=== PATIENT | female | born 1945 | race Caucasian/White ===

== ENCOUNTER → 2016-12-27 | Outpatient (CLI) | payer OTHER ==
[~2016-12-27] MED LIST: ACET-1256 PO; ALBU1AER9 INH; ASPI81TA28 PO; ATOR-24 PO; BECL0.072 INH; BIOTCAP2 PO; CALC1CHW43 PO; CHOL100010 PO; CHOL1CAP57 PO; COEN75CA PO; DULA0.5I SQ; FRS/40 PO; FURO-85 PO; GLIP-197 PO; INSDGI SC; KRIL1CAP3 PO; LANS30CA12 PO; LEVO125T72 PO; LISI10TA PO; MAGN400T6 PO; MECL1TAB42 PO; MELO15TA10 PO; MELO15TA3 PO; MISCCAP80 PO; POLY1DRO2 OPB; REPA1TAB42 PO; VALA500T60 PO; VERA240T20 PO
--- NOTE | 2016-12-28 14:02 | MAMMOGRAPHY REPORT ---
BILATERAL DIGITAL SCREENING MAMMOGRAM WITH CAD: 12/27/2016 CLINICAL HISTORY: Routine screening. Patient has no complaints. TECHNIQUE: Bilateral CC and MLO views were obtained. Current study was also evaluated with a Computer Aided Detection (CAD) system. COMPARISON: Comparison is made to exams dated: 12/27/2015 mammogram, 10/13/2014 mammogram, 10/09/2013 ma mmogram, 10/07/2012 mammogram, 10/05/2011 mammogram, and 09/29/2009 mammogram - [facility] nter. BREAST COMPOSITION: There are scattered areas of fibroglandular density in both breasts. FINDINGS: There is stable focal asymmetry in the 12:00 anterior right breast, and stable asymmetries in the left upper outer quadrant. A few benign rim calcifications. No suspicious mass, architectura l distortion or cluster of microcalcifications is seen. IMPRESSION: ACR BI-RADS CATEGORY 1: NEGATIVE There is no mammographic evidence of malignancy. A 1 year screening mammogram is recommended. The pa tient will receive written notification of the results. Approximately 10% of breast cancers are not detected with mammography. A negative mammographic report should not delay biopsy if a clinically suggestive mass is present. Ariadna Pelayo M.D. ay/:12/27/2016 15:27:36 International Relations Professor: Yas Jackson, [facility] letter sent: Normal 1/2 BI-RADS Code: ACR BI-RADS Category 1: Negative
== END | disposition home or self-care (01) ==
LOC: C.MAMM 13:22
PROVIDERS: ATTEND Internal Medicine
DX: Z12.31 Encounter for screening mammogram for malignant neoplasm of breast (principal)

== ENCOUNTER → 2017-02-19 | Outpatient (CLI) | payer OTHER | END | disposition home or self-care (01) | LOC: C.RDSM 13:37 | PROVIDERS: ATTEND Physical Medicine & Rehabilitation Sports Medicine | DX: M17.0 Bilateral primary osteoarthritis of knee (principal) ==

== ENCOUNTER 2017-03-07 04:57 | Inpatient (IN) | payer OTHER ==
[2017-02-19 12:14] VITALS: BMI 35.0
--- NOTE | 2017-02-19 13:14 | PAT Medication Instructions ---
Service Date Feb 19, 2017. Current Home Medication List Acetaminophen (Tylenol), 1,000 MG PO TID PRN for Pain Aspirin (Aspirin Ec), 81 MG PO BID Atorvastatin (Lipitor), 40 MG PO HS Biotin (Biotin 5000), 1 CAP PO QAM Calcium Carbonate (Antacid) (Tums E-X 750), 1 TAB PO PRN PRN for Indigestion Cholecalciferol (Vitamin D3), 1 TAB PO QAM Coenzyme Q10 (Ubidecarenone) (Co Q-10), 1 CAP PO QPM Dulaglutide (Trulicity), 1.5 UNITS SQ SAT Furosemide (Lasix), 20 MG PO QAM Insulin Glargine (Lantus), 24 UNITS SC QPM Krill Oil (Krill Oil), 1 CAP PO LUNCH Lansoprazole (Prevacid), 30 MG PO QAM Levothyroxine Sodium (Synthroid), 125 MCG PO QAM Lisinopril (Prinivil), 10 MG PO HS Magnesium Oxide (Mag-Ox), 400 MG PO QPM Meloxicam (Mobic), 7.5 MG PO QAM Polyethylene Glycol-Propylene (Systane Gel), 1 DROP OPB HS PRN for DRY EYES Probiotic Product (Probiotic), 1 CAP PO QPM Repaglinide (Prandin), 1 MG PO AC Valacyclovir (Valtrex), 500 MG PO QAM Verapamil Sust Rel (Calan Sr Ext Rel), 240 MG PO HS Medication Instructions For Your Scheduled Surgery -Continue as directed: Dulaglutide (Trulicity), 1.5 UNITS SQ SAT - Ask your surgeon for instructions for: Meloxicam (Mobic), 7.5 MG PO QAM Aspirin (Aspirin Ec), 81 MG PO BID (also check with Dr. Arthur for instructions) Hold the following medications 2 weeks prior to surgery (starting 02/21/17): Krill Oil (Krill Oil), 1 CAP PO LUNCH Coenzyme Q10 (Ubidecarenone) (Co Q-10), 1 CAP PO QPM - Hold the following medications 24 hours prior to surgery: Lisinopril (Prinivil), 10 MG PO HS - Hold the following medications the morning of surgery: Repaglinide (Prandin), 1 MG PO AC Furosemide (Lasix), 20 MG PO QAM Cholecalciferol (Vitamin D3), 1 TAB PO QAM Calcium Carbonate (Antacid) (Tums E-X 750), 1 TAB PO PRN PRN for Indigestion Biotin (Biotin 5000), 1 CAP PO QAM - Take the following medications the morning of surgery with a sip of water: Acetaminophen (Tylenol), 1,000 MG PO TID PRN for Pain (if needed) Lansoprazole (Prevacid), 30 MG PO QAM Levothyroxine Sodium (Synthroid), 125 MCG PO QAM Valacyclovir (Valtrex), 500 MG PO QAM - Take the following medications as scheduled the night before surgery: Verapamil Sust Rel (Calan Sr Ext Rel), 240 MG PO HS Polyethylene Glycol-Propylene (Systane Gel), 1 DROP OPB HS PRN for DRY EYES ( BRING WITH YOU TO THE HOSPITAL THE MORNING OF THE SURGERY) Probiotic Product (Probiotic), 1 CAP PO QPM Atorvastatin (Lipitor), 40 MG PO HS Magnesium Oxide (Mag-Ox), 400 MG PO QPM Acetaminophen (Tylenol), 1,000 MG PO TID PRN for Pain (if needed) Insulin Glargine (Lantus), 24 UNITS SC QPM If you have any questions please call us at [phone] or [phone] or [phone]
[2017-02-19 13:59] LABS: BASO % 0.8 %; BASO ABS # 0.06 K/uL (0-0.2); COMPLETE YES; EOS % 3.7 %; HEMATOCRIT 37.3 % (37-47); IG% 0.1 %; LYMPH % 30.1 %; LYMPH ABS # 2.27 K/uL (1.2-3.4); MEAN CELL VOLUME 90.3 fL (80-100); MEAN CORPUSCULAR HEMOGLOBIN 28.8 pg (25-34); MEAN CORPUSCULAR HGB CONC 31.9 g/dl (32-36); MEAN PLATELET VOLUME 9.3 fL (7.4-10.4); MONO % 7.3 %; PLATELET COUNT 225 K/uL (130-400); RED BLOOD COUNT 4.13 M/uL (4.2-5.4); WHITE BLOOD COUNT 7.53 K/uL (4.8-10.8)
[2017-02-19 14:04] LABS: URINE APPEARANCE CLOUDY (CLEAR); URINE BILIRUBIN NEG (NEG); URINE COLOR YELLOW; URINE NITRITE POS (NEG); URINE PH 7.5 (4.5-7.5); URINE SPECIFIC GRAVITY 1.015 (1.000-1.030); UROBILINOGEN NEG (NEG)
[2017-02-19 14:09] LABS: PARTIAL THROMBOPLASTIN RATIO 0.9; PROTHROMBIN TIME (PATIENT) 10.4 SECONDS (9.0-12.0)
[2017-02-19 14:10] LABS: MANUAL MICROSCOPIC REQUIRED? NO; REVIEW REQ? NO
--- NOTE | 2017-02-19 14:12 | DIAGNOSTIC IMAGING REPORT ---
TWO VIEW CHEST CLINICAL HISTORY: Preoperative examination. FINDINGS: PA and lateral chest radiographs are compared to study dated and correlated with chest CT dated 01/15/2015. The patient is status post midline sternotomy. The heart is enlarged and there is atherosclerotic calcification of the thoracic aorta. The pulmonary vasculature is noncongested. The lungs and pleural spaces are clear. There is no pneumothorax. The skeletal structures are osteopenic. The bony thorax appears intact. A left shoulder arthroplasty is in place. Cholecystectomy clips are seen in the right upper quadrant. IMPRESSION: Cardiomegaly with no active disease in the chest. Electronically signed by: Gio Traore M.D. 02/19/2017 2:10 PM Dictated Date/Time: 02/19/2017 2:10 PM
[2017-02-19 16:15] LABS: BUN/CREATININE RATIO 14.6 (10-20); CALCIUM 9.1 mg/dl (8.5-10.1); CREATININE 1.2 mg/dl (0.60-1.20); POTASSIUM 4.5 mmol/L (3.5-5.1)
--- NOTE | 2017-02-23 18:29 | HISTORY & PHYSICAL EXAMINATION ---
DATE OF ADMISSION: 03/07/2017 CHIEF COMPLAINT: Left knee pain. HISTORY OF PRESENT ILLNESS: This 71-year-old white female presents to the office with complaints of bilateral knee pain, left greater than right, for over a year. She has had both knees scoped in the past. She denies any catching or locking. No buckling. Pain is worse with weightbearing. She has tried activity modification as well as oral pain medication and viscosupplementation without success. She has also tried physical therapy without lasting relief. Pain is affecting her ADLs. She states she cannot walk more than 20 steps without significant pain. She elects to proceed with left total knee arthroplasty in hopes of alleviating her pain. Preoperative imaging has been obtained. PAST MEDICAL HISTORY: Significant for hypertension, elevated cholesterol, heart palpitations, diastolic heart failure, arterial spasms, asthma, sleep apnea, uses CPAP, right hand fingertip numbness, diabetes, hypothyroidism, borderline anemia, easy bruising, osteoarthritis, back pain, GERD, history of hiatal hernia, chronic stage III kidney failure, obesity, vertigo, and skin cancer. PREVIOUS SURGERIES: Total shoulder arthroplasty in August 2015 on the left, bilateral cataract surgery in February 2016 and December 2016, knee arthroscopy of both knees, ovarian cyst removal, open heart surgery in November 2013, cholecystectomy in 1994, eyelid surgery in 2012, varicose vein stripping in 1987, tonsillectomy in 1954 and appendectomy 1953. ALLERGIES: KNOWN ALLERGY TO SULFA DRUGS, WHICH CAUSE HIVES AND RESPIRATORY SYMPTOMS. CORTISONE CAUSES A RED RASH. PENICILLIN CAUSES HIVES. She has taken Keflex before without issue. CURRENT MEDICATIONS: Atorvastatin 40 mg daily, betamethasone 0.05% topical cream b.i.d. p.r.n., CPAP daily, vitamin daily, clotrimazole 10 mg oral lozenges t.i.d., coenzyme Q10 daily, Ecotrin 81 mg aspirin b.i.d., furosemide 20 mg p.o. daily, lansoprazole 30 mg p.o. daily, Lantus 24 units subQ at bedtime, Synthroid 125 mcg p.o. daily, lisinopril 10 mg p.o. daily, magnesium oxide 400 mg p.o. daily, meclizine 25 mg p.o. t.i.d. p.r.n., meloxicam 15 mg half tablet p.o. daily, Prandin 0.5 mg before lunch and dinner, probiotic capsule daily, Krill oil 1000 mg daily, Systane eyedrops b.i.d. p.r.n., Trulicity pen injection daily unknown dose, Tylenol 500 mg p.o. daily p.r.n., valacyclovir 500 mg p.o. daily, verapamil 240 mg p.o. q.a.m., and vitamin D daily. FAMILY HISTORY: Noncontributory. 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 No tobacco use. . Occasional ETOH use. REVIEW OF SYSTEMS: Significant for above stated conditions, otherwise unremarkable. PHYSICAL EXAMINATION: GENERAL: Well-developed and well-nourished elderly white female in no acute distress. Sitting in a chair. Alert and oriented. Looks younger than her stated age. SKIN: Warm and dry with good turgor. No rashes or lesions. No ecchymosis or erythema. Peripheral edema is present. HEENT: Normocephalic and atraumatic. Eyes, PERRLA and EOMI. Cataract replacement lenses are noted. Nares patent bilaterally without turbinate enlargement. Oropharynx without erythema or exudate. No lesions noted. Uvula midline. Oral mucosa moist. Fair dentition. Dental caps are noted. HEART: RRR. No MGR. LUNGS: Clear to auscultation bilaterally. No crackles, rhonchi or wheezing. Good air movement. ABDOMEN: Mildly obese. Bowel sounds present x4, soft and nontender. No organomegaly. MUSCULOSKELETAL: Left knee has no redness or warmth. No significant intraarticular effusion. Obvious arthritic changes. Nearly full terminal extension. She lacks just 2 to 3 degrees of extension. Flexion to greater than 90 degrees. Strength is 5/5 with fair quad tone. There is focal discomfort with palpation over the medial joint line. There is also mild peripatellar discomfort. No lateral joint line pain. Stable collateral ligaments. Ambulatory with a slightly antalgic gait. No defect in the patellar tendon or quadriceps tendon. NEUROLOGIC: Cranial nerves II through XII are intact. Gross sensation is intact across the lower extremities by soft touch. DATA: Radiographic imaging previously obtained shows bilateral knee DJD, left greater than right. Medial compartment narrowing, subchondral sclerosis, and periarticular osteophytes are present. She also has significant chondrocalcinosis. IMPRESSION: Left knee end-stage degenerative joint disease. PLAN: The patient was informed of operative procedure, postoperative recovery, physical therapy requirements, and medication use. Postoperative prescriptions for Percocet and Coumadin will be provided at discharge from the hospital. Anticipate discharge to home with home health services. Preoperative lab work, EKG, and chest x-ray have been ordered. Medical clearance has been requested from both Dr. Bravo and Dr. Arthur. She will also obtain a note from Dr. Higuera regarding her kidney disease. She already has a walker and cane. Informed written consent will be obtained.
[2017-03-07] VITALS (10 sets, daily range): BP systolic 93–137; BP diastolic 58–76; PULSE 54–76; TEMP 36.5–36.8; O2SAT 93–99; Ht 162.6 cm; Wt 92.4 kg
[~2017-03-07] VITALS: Ht 162.6 cm; Wt 92.4 kg
[~2017-03-07 04:57] MED LIST changes: -ALBU1AER9 INH; -BECL0.072 INH; -CHOL100010 PO; -FRS/40 PO; -GLIP-197 PO; -MECL1TAB42 PO; -MELO15TA3 PO
[2017-03-07] MEDS ORDERED: ROPIVACAINE 5MG/ML 30 ML 150 MG, BUPIVACAINE/EPINEPHR 0.5% MPF 30 ML, KETOROLAC TROMETH... INFIL SCH ×6 (06:00)
[2017-03-07] MEDS ORDERED: TRANEXAMIC ACID INJ 1,000 MG in SODIUM CHLORIDE 0.9% 100ML 100 ML IV SCH (06:00)
[2017-03-07] MEDS ORDERED: LACTATED RINGER'S 1000ML 1,000 ML IV SCH (06:00)
[2017-03-07] MEDS ORDERED: CEFAZOLIN 2000 MG/60 ML D5W 60 ML IV SCH (06:00)
[2017-03-07] MEDS ORDERED: LACTATED RINGER'S 1000ML IV SCH (06:00)
[2017-03-07] MEDS ORDERED: LACTATED RINGER'S 1000ML 500 ML IV ONE (06:00)
[2017-03-07] MEDS ORDERED: BUPIVACAINE 0.25% 30 ML VIAL ONE (06:19)
[2017-03-07] MEDS ORDERED: BUPIVACAINE 0.5 % 5 MG/1 ML PF 10ML VIAL ONE (06:19)
--- NOTE | 2017-03-07 06:20 | History & Physical Bridge Note ---
H&P Re-Evaluation Bridge Note: I have examined the patient, reviewed the History & Physical and in the interval since the performance of the History & Physical I have noted the following changes of clinical significance: consent reviewed.No changes noted
[2017-03-07] MEDS ORDERED: TRANEXAMIC ACID INJ 1,000 MG in SODIUM CHLORIDE 0.9% 100ML 100 ML TOP SCH (06:30)
[2017-03-07] MEDS ORDERED: POVIDONE-IODINE OP SOLN 30 ML BTL ONE (06:31)
[2017-03-07] MEDS ORDERED: ORTHO JOINT ANESTHETIC ONE (06:31)
[2017-03-07] MEDS ORDERED: FENTANYL CITRATE INJ 50 MCG/1 ML 2 ML VIAL ONE (06:34)
[2017-03-07] MEDS ORDERED: MIDAZOLAM HCL 1 MG/ML 2ML VIAL ONE ×2 (06:34→07:09)
[2017-03-07] MEDS ORDERED: ONDANSETRON INJ 2 MG/ML 2 ML VIAL ONE (07:15)
[2017-03-07] MEDS ORDERED: LIDOCAINE HCL 2% 2 ML VIAL (20MG/ML) ONE (07:15)
[2017-03-07] MEDS ORDERED: PROPOFOL IV EMULSION 10 MG/ML 20 ML VIAL IV ONE (07:15)
[2017-03-07] MEDS ORDERED: FENTANYL CITRATE INJ 50 MCG/1 ML 2 ML VIAL IV PRN (08:00)
[2017-03-07] MEDS ORDERED: EpHEDrine SULFATE INJ 50 MG/ML AMP IV PRN (08:00)
[2017-03-07] MEDS ORDERED: ATROPINE SULFATE 0.1 MG/ML 5ML SYR IV PRN (08:00)
[2017-03-07] MEDS ORDERED: ONDANSETRON INJ 2 MG/ML 2 ML VIAL IV PRN ×2 (08:00→08:45)
--- NOTE | 2017-03-07 08:25 | [facility] Post Operative Brief Note ---
Immediate Operative Summary Operative Date Mar 07, 2017. Pre-Operative Diagnosis Left Knee End-Stage Degenerative Joint Disease Post-Operative Diagnosis Left Knee End-Stage Degenerative Joint Disease Procedure(s) Performed Left Total Knee Arthroplasty Surgeon Dr. An Product Marketing Director Surgeon(s) Dr. Millan (Fellow)/KANA Gallegos Estimated Blood Loss 100 ml Findings djd Fluids (cc crystalloids) 1500cc Specimens A. Left Knee Bone and Tissue Drains none Anesthesia spinal Complication(s) None Disposition Recovery Room / PACU
[2017-03-07] MEDS ORDERED: SODIUM CHLORIDE 0.9% 1000ML 1,000 ML IV SCH (08:32)
--- NOTE | 2017-03-07 08:38 | OPERATIVE REPORT ---
DATE OF OPERATION: 03/07/2017 PREOPERATIVE DIAGNOSIS: Osteoarthritis, left knee. POSTOPERATIVE DIAGNOSIS: Same. OPERATION PERFORMED: Cemented left total knee replacement. SURGEON: Dr. An. CLERK RATING: Yana. SECOND CLERK RATING: Quincy Bruno PA-C. PERIOPERATIVE SITUATION: Medically cleared female with intractable knee pain has physical exam and x-rays consistent with severe osteoarthritis of her left knee. Wants to proceed with surgical treatment at her request. Consent verified, all complications on the consent emphasized. OPERATION AND FINDINGS: PROCEDURE: The patient appropriately identified, site verified, consent verified, 2 grams of Ancef confirmed as being given. The left lower extremity was prepped and draped in usual routine fashion. Tourniquet inflated to 300 mmHg after exsanguination of limb with a rubber Esmarch bandage for a total of 50 minutes. Midline exposure utilized. Parapatellar arthrotomy performed. Synovectomy completed, osteophytes resected. Distal femur then entered. Distal femur then resected 12 mm. Proximal tibia resected 4 mm. The extension gap was excellent. Femur sized to 2.5, it was appropriately cut with a 2.5 cutting block. Anterior posterior condylar and chamfer cuts made and then the flexion gap checked. It was excellent. The tibia was then sized to 2.5 and that was completed as well with 2.5 broaching and reaming. The box cut then made on the femur. The trial 2.5 in fit well and the trial 2.5 tibia with a 10 and 12.5 mm spacer fit well with the 12.5 eliminating some hyperextension. The patella was then sized to a 38, it was resected leaving 15 mm, peg seating holes made and the trial fit and tracked well. All trial implants were then removed. The wound was irrigated with Betadine and then Pulsavac then TXA and then injected after cleared with the Orthomix and then the permanents cemented into position. After 12 minutes, the tourniquet deflated. After 14 minutes the knee flexed. No cement removal was required. Wound was irrigated with Betadine Pulsavac, bleeding points controlled with electrocautery and then the wound closed with #1 Ethibond, #1 Vicryl, 2-0 Vicryl and stainless steel clips. Appropriate dressing including a Moy Sidhu cotton dressing applied. ESTIMATED BLOOD LOSS: 100 mL. CRYSTALLOID: 1500 mL. SUMMARY OF IMPLANTS: Size 2.5 posterior cruciate substituting femur, size 2.5 tibial rotating platform tray, oval domed 3 pegged patella size 38, tibial insert rotating platform, posterior cruciate stabilized 2.5 x 12.5 mm thick. Two bags of Palacos G cement. I attest to the content of the Intraoperative Record and any orders documented therein. Any exception s are noted below.
[2017-03-07] MEDS ORDERED: ACETAMINOPHEN 325 MG TAB PO PRN (08:45)
[2017-03-07] MEDS ORDERED: METOCLOPRAMIDE HCL INJ 5 MG/ML 2 ML VIAL IV PRN (08:45)
[2017-03-07] MEDS ORDERED: MAGNESIUM HYDROXIDE SUSP 30 ML UDC PO PRN (08:45)
[2017-03-07] MEDS ORDERED: DiphenhydrAMINE HCL 50 MG/ML VIAL IV PRN (08:45)
[2017-03-07] MEDS ORDERED: MoRPHine SULFATE 2 MG/ML CARP IV PRN (08:45)
--- NOTE | 2017-03-07 09:10 | Anesthesiology Progress Note ---
Anesthesia Post Op Note Date & Time Mar 07, 2017 at 09:10 Vital Signs Pain Intensity: 0 Vital Signs Past 12 Hours Date Time Temp Pulse Resp B/P (MAP) Pulse Ox O2 Delivery O2 Flow Rate FiO2 03/07/17 09:00 60 16 97/54 95 Nasal Cannula 3 03/07/17 08:50 59 16 105/56 100 Oxymask 10 03/07/17 08:40 65 16 103/52 100 Oxymask 10 03/07/17 08:30 36 64 16 102/54 99 Oxymask 10 03/07/17 05:50 36.5 70 18 137/61 97 Room Air Notes Mental Status: alert / awake / arousable, participated in evaluation Pt Amnestic to Procedure: Yes Nausea / Vomiting: adequately controlled Pain: adequately controlled Airway Patency, RR, SpO2: stable & adequate BP & HR: stable & adequate Hydration State: stable & adequate Neuraxial Anesthesia: was administered, sensory block is resolving Anesthetic Complications: no major complications apparent
--- NOTE | 2017-03-07 09:22 | DIAGNOSTIC IMAGING REPORT ---
L KNEE 1 OR 2 VIEWS ROUTINE HISTORY: 71 years-old Female AP/LATERAL IN PACU LEFT KNEE status post left total knee arthroplasty COMPARISON: Knee radiographs 02/19/2017 TECHNIQUE: Frontal and lateral views of the left knee FINDINGS: Postoperative findings compatible with recent left total knee arthroplasty with patellar resurfacing. Alignment is satisfactory without postoperative complication identified. Midline anterior skin mariano are noted in addition to expected postsurgical soft tissue swelling and deep tissue air about the knee. No retained foreign body identified. IMPRESSION: Status post left knee total joint arthroplasty and patellar resurfacing without complication identified. The above report was generated using voice recognition software. It may contain grammatical, syntax or spelling errors. Electronically signed by: Gregory Trujillo M.D. 03/07/2017 9:21 AM Dictated Date/Time: 03/07/2017 9:20 AM
[2017-03-07] MEDS ORDERED: MoRPHine SULFATE 4 MG/ML 1 ML CARP\\VIAL IV PRN (10:15)
[2017-03-07] MEDS ORDERED: GLUCAGON FOR INJ 1 MG VIAL SQ PRN (10:15)
[2017-03-07] MEDS ORDERED: GLUCOSE 40% GEL 15 GM TUBE PO PRN (10:15)
[2017-03-07] MEDS ORDERED: DEXTROSE 50% 50 ML SYR IV PRN (10:15)
[2017-03-07] MEDS ORDERED: GLUCOSE 10 TABS/TUBE PO PRN (10:15)
--- NOTE | 2017-03-07 10:49 | Medical Consult ---
Consultation Date of Consultation: Mar 07, 2017. Attending Physician: Chevy An M.D. History of Present Illness 71 y/o F Hx CAD, CHF, DM, CKD III, HTN, NPL, Hypothyroidism. Pt is post-op L TKR - medical service is consulted for post-op management considering her multitude of complex medical issues. Pt is recovering well post-op. Denies CP, SOB above baseline, N/V, lighthead or excessive/uncontrolled pain. Past Medical/Surgical History 1) HTN 2) Diastolic CHF 3) HPL 4) TAE - CPAP 5) DM II 6) CAD - Armendariz to LAD 2013 7) CKD III - creat 1.2 8) Obese 9) Vertigo 10) Hiatal hernia 11) Hypothyroidism Surgical 1) Total shoulder arthroplasty 09/03 2) B/L cataracts 2015 3) CABG 2013 4) N[place]u 1994 5) Appendectomy 6) Tonsillectomy Family History FHx: heart disease Social History Smoking Status: Never Smoker Drug Use: none Marital Status: Occupation Status: retired Allergies Coded Allergies: Sulfamethoxazole w/Trimethoprim (Verified Allergy, Severe, HIVES, ITCHING , ANAPHYLAXIS, 03/07/17) Cat Dander (Verified Allergy, Unknown, AND DOGS - SNEEZING, 03/07/17) Chlorine (Verified Allergy, Unknown, ECZEMA, 03/07/17) Cortisone (Verified Allergy, Unknown, HIVES, 03/07/17) Penicillins (Verified Allergy, Unknown, HIVES, 03/07/17) Nickel (Verified Adverse Reaction, Mild, EARS SENSITIVE TO NICKEL IN EARINGS, 03/07/17) Current Inpatient Medications Current Inpatient Medications Medications (Trade) Dose Ordered Sig/Jenny Route Start Time Stop Time Status Last Admin Dose Admin Lactated Ringer's 1,000 ml @ 15 mls/hr Q24H IV 03/07/17 06:00 03/08/17 05:59 03/07/17 05:59 15 MLS/HR Lactated Ringer's 1,000 ml @ 60 mls/hr [id number] IV 03/07/17 06:00 03/07/17 22:39 Cefazolin Sodium 60 ml @ 100 mls/hr PREOP IV 03/07/17 06:00 03/07/17 18:00 03/07/17 06:54 100 MLS/HR Tranexamic Acid 1000 mg/Sodium Chloride 110 ml @ 0 mls/hr 0630 TOP 03/07/17 06:30 03/07/17 18:00 03/07/17 07:53 100 MLS/HR Fentanyl Citrate (Fentanyl Inj) 25 mcg Q5M PRN IV 03/07/17 08:00 03/07/17 13:00 Ondansetron HCl (Zofran Inj) 4 mg ONE PRN IV 03/07/17 08:00 03/07/17 13:00 Ephedrine Sulfate (EpHEDrine SULFATE INJ) 5 mg Q5M PRN IV 03/07/17 08:00 03/07/17 13:00 Atropine Sulfate (Atropine Sulfate 0.1MG/Ml Inj) 0.5 mg Q1M PRN IV 03/07/17 08:00 03/07/17 13:00 Sodium Chloride 1,000 ml @ 100 mls/hr Q10H IV 03/07/17 08:32 03/08/17 08:31 Cefazolin Sodium 1000 mg/Syringe 5 ml @ 100 mls/hr Q8H IV 03/07/17 14:00 03/07/17 22:02 Oxycodone HCl (Roxicodone Immediate Rel Tab) 1 TABLET FOR PAIN RATING... Q4H PRN PO 03/07/17 08:45 03/21/17 08:44 Morphine Sulfate (MoRPHine SULFATE INJ) 2 mg Q1H PRN IV 03/07/17 08:45 03/21/17 08:44 Acetaminophen (Tylenol Tab) 650 mg Q6H PRN PO 03/07/17 08:45 04/06/17 08:44 Magnesium Hydroxide (Milk Of Magnesia Susp) 30 ml Q6H PRN PO 03/07/17 08:45 04/06/17 08:44 Docusate Sodium (coLACE CAP) 100 mg BID PO 03/07/17 21:00 04/06/17 20:59 Diphenhydramine HCl (Benadryl Inj) 25 mg Q8H PRN IV 03/07/17 08:45 04/06/17 08:44 Al Hydrox/Mg Hydrox/Simethicone (Maalox Max Susp) 15 ml Q4H PRN PO 03/07/17 08:45 04/06/17 08:44 Multivitamins (Multivitamin Tab) 1 tab QAM PO 03/08/17 09:00 04/07/17 08:59 Ondansetron HCl (Zofran Inj) 4 mg Q6H PRN IV 03/07/17 08:45 04/06/17 08:44 Metoclopramide HCl (Reglan Inj) 10 mg Q6H PRN IV 03/07/17 08:45 04/06/17 08:44 Ferrous Gluconate (Ferrous Gluconate Tab) 324 mg TIDM PO 03/07/17 12:30 04/06/17 12:29 Pantoprazole Sodium (Protonix Tab) 40 mg QAM PO 03/08/17 09:00 04/07/17 08:59 Aspirin (Ecotrin Tab) 81 mg BID PO 03/07/17 21:00 04/06/17 20:59 Atorvastatin Calcium (Lipitor Tab) 40 mg HS PO 03/07/17 21:00 04/06/17 20:59 Furosemide (Lasix Tab) 20 mg QAM PO 03/08/17 09:00 04/07/17 08:59 Levothyroxine Sodium (Synthroid Tab) 125 mcg DAILYBB PO 03/08/17 06:00 04/07/17 05:59 Lisinopril (Zestril Tab) 10 mg HS PO 03/07/17 21:00 04/06/17 20:59 Verapamil HCl (Calan-Sr Tab) 240 mg HS PO 03/07/17 21:00 04/06/17 20:59 Insulin Aspart (novoLOG ASPART) SLIDING SCALE G... ACHS SC 03/07/17 12:00 04/06/17 11:59 Glucose (Glucose 40% Gel) 15-30 GRAMS 15 GRAMS... UD PRN PO 03/07/17 10:15 04/06/17 10:14 Glucose (Glucose Chew Tab) 4-8 Tablets 4 Tabl... UD PRN PO 03/07/17 10:15 04/06/17 10:14 Dextrose (Dextrose 50% 50ML Syringe) 25-50ML OF 50% DW IV FOR... UD PRN IV 03/07/17 10:15 04/06/17 10:14 Glucagon (Glucagon Inj) 1 mg UD PRN SQ 03/07/17 10:15 04/06/17 10:14 Morphine Sulfate (MoRPHine SULFATE INJ) 4 mg Q1H PRN IV 03/07/17 10:15 03/21/17 10:14 Review of Systems Constitutional: No fever, No chills, No sweats Eyes: No worsening of vision ENT: No hearing loss, No unusual epistaxis, No nasal symptoms Respiratory: No cough, No sputum, No wheezing Cardiovascular: No chest pain, No orthopnea, No PND Abdomen: No pain, No nausea, No vomiting Musculoskeletal: No joint pain Genitourinary - Female: No dysuria, No urinary frequency, No urinary urgency Neurologic: No memory loss, No paralysis, No weakness Psychiatric: No depression symptoms Endocrine: No fatigue Hematologic / Lymphatic: No abnormal bleeding/bruising Integumentary: No rash Physical Exam Date Time Temp Pulse Resp B/P (MAP) Pulse Ox O2 Delivery O2 Flow Rate FiO2 03/07/17 09:35 95 Nasal Cannula 2.0 03/07/17 09:35 95 Nasal Cannula 2.0 03/07/17 09:35 36.6 57 16 95/59 (71) 95 Nasal Cannula 2.0 03/07/17 09:30 36.5 65 16 105/68 96 Nasal Cannula 3 03/07/17 09:15 36.5 58 16 101/54 95 Nasal Cannula 3 03/07/17 09:00 60 16 97/54 95 Nasal Cannula 3 03/07/17 08:50 59 16 105/56 100 Oxymask 10 03/07/17 08:40 65 16 103/52 100 Oxymask 10 03/07/17 08:30 36 64 16 102/54 99 Oxymask 10 03/07/17 05:50 36.5 70 18 137/61 97 Room Air General Appearance: WD/WN, no apparent distress Head: normocephalic Eyes: normal inspection ENT: normal ENT inspection, pharynx normal Neck: supple, no JVD Respiratory/Chest: chest non-tender, lungs clear, normal breath sounds Cardiovascular: regular rate, rhythm, no edema, no gallop Abdomen/GI: normal bowel sounds, non tender, soft Back: normal inspection, no CVA tenderness Extremities/Musculoskelatal: normal inspection, no calf tenderness, normal capillary refill Neurologic/Psych: 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 Pt is post-op L TKR - medical service is consulted for post-op management considering her multitude of complex medical issues. Pt is recovering well post-op. Denies CP, SOB above baseline, N/V, lighthead or excessive/uncontrolled pain. 1) Post -op - pain control appears adequate - anticoagulate at earliest possible time as she is likely moderate-high risk. PT/OT per ortho 2) Diastolic CHF - Caution with fluid resuscitation - would however obtain labs and assess volume status prior to AM Lasix administration 3) HTN - cont Verapamil - labs are recommended prior to restarting Lisinopril 4) TAE - CPAp to be provided 5) DM - maurice-op sliding scale unti resumes normal diet 6) Hypothyroidism - cont Synthroid 7) CKD III - trend BMP prior to restarting Lisinopril, Lasix - maintain adequate volume 8) CAD - no reported CP - cont ASA, Statin Tx Total time for this consult including review of labs , meds , records - discussion with pt - review of ortho notes - 36 min
[2017-03-07] MEDS: OXYCODONE HCL IR 5 MG TAB (IMMEDIATE RELEASE) PO PRN ×3 (11:06→20:32)
[2017-03-07] MEDS ORDERED: WARF2TAB PO (12:51)
[2017-03-07] MEDS ORDERED: OXYC-57 PO (12:51)
[2017-03-07] MEDS: INSULIN ASPART 100 UNITS/ML 3 ML PEN SC SCH ×3 (13:00→20:42)
[2017-03-07] MEDS: FERROUS GLUCONATE 324 MG TAB PO SCH ×2 (13:01→18:13)
--- NOTE | 2017-03-07 13:03 | Progress Note ---
Progress Note Date of Service Mar 07, 2017. Progress Note Postop check status post a left total knee replacement. Patient is feeling well denies chest pain shortness breath fever chills nausea vomiting or headache. Has eaten breakfast and lunch. Vital signs stable afebrile. Neurovascular check is normal femoral sciatic nerve. Postop x-rays look excellent. Assessment doing well, eating well. We'll Hep-Lock IV and continue pathway. Dictated not read.
--- NOTE | 2017-03-07 13:32 | Discharge Instructions ---
Discharge Instructions Date of Service Mar 07, 2017. Admission Reason for Admission: Left Knee Degenerative Joint Disease Discharge Discharge Diagnosis / Problem: Left knee s/p total knee replacement Discharge Goals Goal(s): Decrease discomfort, Improve function, Increase independence Activity Recommendations Activity Limitations: as noted below Lifting Limitations: gradually increase as tolerated Exercise/Sports Limitations: until after follow-up appointment Shower/Bathe: keep incision dry Driving or Machine Use: No driving until cleared by Dr. An Weightbearing Status: Left weightbearing (as tolerated) . Instructions / Follow-Up Instructions / Follow-Up New Medicine: * You will likely be taking one or more of these medications: 1. Percocet - Take, as directed, when you need it, every four to six hours to control your pain. 2. Coumadin - Thins your blood to lessen the chance of forming a blood clot. The dose of this is different for each person and is based on your blood tests that are done twice a week. * The most common side effects of pain medicine and iron are nausea and constipation. If nausea or constipation is too much of a problem or if you have any questions about your new medicines or doses, call [facility] at . We will try to help you manage these issues. VERY IMPORTANT TO READ AND REVIEW" Blood Clots and Blood Thinning Medicine: * You are given Coumadin during the immediate post-operative period to lessen the risk of blood clots forming in your legs and/or lungs. Coumadin is usually given for six weeks after surgery. * The prescription is for 2 mg tablets. At discharge, you should understand your dose and take it all at the same time every day, preferably after dinner. * You need to get your blood checked 1 - 2 times per week for six weeks or as directed. * If your dose needs to change, we will call you. Do not take your medication on the day of the blood test until we call you. Pain: * The immediate post-operative period after knee replacement surgery is often quite painful. * You are given a prescription for pain medicine. You should take it, as directed, when you need it, especially before physical therapy and before going to bed. Pain that interferes with sleep is very common and can last several months. * You will likely need pain medicine for the first four to six weeks. It will not stop all of the pain. The pain will lessen and as you feel better, you may change to milder pain medicine such as Tylenol. * The most common side effects of pain medicine are nausea and constipation, so don't take more than you need. Physical Therapy: * You will have physical therapy two or three times each week for four to six weeks after your surgery in order to regain your knee range of motion and to retrain your knee to work properly. * It is just as important to make sure you are getting your knee perfectly straight as it is to regain your knee bend. * Taking a pain pill an hour before therapy can help you have a more productive and comfortable therapy session if needed. Home Exercise: * You were shown a series of exercises (heel props, heel slides, etc.) in the hospital. Do these exercises three to four times each day including the exercises you were shown in physical therapy. Walking: * Get up and walk several times each day. For the first four weeks, try not to stand or walk for more than one hour at a time. If you do stand or walk for more than one hour, you will not hurt anything, but your knee and leg will likely swell. * As you feel comfortable, you may change from the walker or crutches to a cane and then to independent walking. SELF CARE INSTRUCTIONS AFTER TOTAL KNEE REPLACEMENT A. You may need to continue a physical therapy program after discharge from the hospital. There are several options available to you. Your doctor will assist you in selecting the best one for you. 1. An out-patient facility 2 to 3 times a week for therapy or home therapy. 2. Continue working on all exercises taught to you in the hospital. Your goals should be to increase bending of your knee to 90 degrees and beyond and to fully straighten your knee. B. You may progress at your own pace from walking with a walker or crutches to a cane; then to no assistive devices. C. Make walking a part of your daily routine. Be up as much as comfortable with rest periods throughout the day. Rest with leg elevation is very important. Use the ice wrap frequently for the first 3-4 weeks. D. There are no restrictions on activities. You may ride in a car, shop, participate in cuffer and all social activities. E. Wear the long elastic stockings (DANIELLE hose) 20 hours a day for six weeks after surgery. They can be removed several times a day for laundering and for a shower. F. Do not place a pillow behind your knee when resting. A pillow at your ankle is okay. VERY IMPORTANT TO READ AND REVIEW A. Take Coumadin, Aspirin or Lovenox (blood thinning medications) as directed by your doctor. If on Coumadin, have a pro-time (blood test) drawn according to your doctor's instructions. This will tell the doctor how well the Coumadin is thinning your blood. 1. YOU WILL BE GIVEN AN ORDER AT DISCHARGE FOR PT/INR (BLOOD WORK). PLEASE HAVE THIS DONE INSTRUCTED. PLEASE CALL OUR OFFICE AFTER YOUR BLOODWORK IS COMPLETE SO WE CAN TRACK YOUR RESULTS. IF YOU ARE GOING TO OUTPATIENT PHYSICAL THERAPY, YOU WILL NEED TO GO TO OUTPATIENT TESTING TO HAVE IT DRAWN. B. There are a few signs you need to watch for after you are home. Call [facility] if you notice any of the followin. Increased severe knee pain. Some pain is expected especially when you exercise. 2. Increased swelling in your leg or knee; pain or swelling of the calf muscle in either lower leg. 3. Any fluid drainage from the incision. 4. Shortness of breath or chest pain. C. Please call [facility] at if you have any concerns or questions about your operation or recovery. The doctor or his nurse will return your call promptly. D. You must take antibiotics before dental work, bladder, bowel or other surgery. Call the office to obtain a prescription at least 2 days prior to your appointment. * CALL IF INCREASED PAIN, REDNESS, DRAINAGE OR FEVER GREATER THAT 101. * Sutures should be removed 12-14 days after surgery unless you are on chronic steriods, then it will be 14-18 days after surgery. Call your doctor if: * Temperature above 101 degrees F. * Pain not relieved by pain medicine ordered. * Increased drainage or redness from incision. * Notify your doctor with any questions or concerns. Current Hospital Diet Patient's current hospital diet: Diabetes Type 2 Diet Discharge Diet Recommended Diet: Diabetes Type 2 Diet Procedures Procedures Performed: Left Total Knee Arthroplasty Pending Studies Studies pending at discharge: no Medical Emergencies . Who to Call and When: Medical Emergencies: If at any time you feel your situation is an emergency, please call 911 immediately. . Non-Emergent Contact Non-Emergency issues call your: Primary Care Provider, Surgeon Call Non-Emergent contact if: temperature is above 101, wound has increased drainage, wound has increased redness, wound has increased pain, you have any medication questions . "Provider Documentation" section prepared by Quincy Bruno PA-C. . VTE Core Measure Inpt VTE Proph given/why not?: Warfarin (Coumadin), T.E.Varun Stockings, SCD's [place] Drug Monitoring Program Search Results: no issues identified
[2017-03-07] MEDS: CEFAZOLIN IV 1,000 MG in SYRINGE 0 ML IV SCH ×2 (13:48→22:24)
[2017-03-07] MEDS ORDERED: FLUCONAZOLE 50 MG TAB PO ONE (14:30)
[2017-03-07] MEDS ORDERED: WARFARIN SOD 5 MG TAB PO SCH (16:00)
[2017-03-07] MEDS: NYSTATIN SUSP 500,000 U/5 ML UDC PO SCH ×2 (16:20→20:39)
[2017-03-07] MEDS: VERAPAMIL HCL 240 MG TABCR PO SCH (20:37)
[2017-03-07] MEDS: DOCUSATE SODIUM 100 MG CAP PO SCH (20:38)
[2017-03-07] MEDS: LISINOPRIL 10 MG TAB PO SCH (20:38)
[2017-03-07] MEDS: ASPIRIN 81 MG ECTAB PO SCH (20:38)
[2017-03-07] MEDS: ATORVASTATIN 40 MG TAB PO SCH (20:38)
[2017-03-08] VITALS (8 sets, daily range): BP systolic 103–144; BP diastolic 58–80; PULSE 77–104; TEMP 36.6–37.4; O2SAT 90–95
[2017-03-08] MEDS: OXYCODONE HCL IR 5 MG TAB (IMMEDIATE RELEASE) PO PRN ×3 (03:05→23:35)
[2017-03-08] MEDS: LEVOTHYROXINE 125 MCG TAB PO SCH (05:35)
[2017-03-08 05:42] LABS: HEMATOCRIT 32.2 % (37-47); MEAN CELL VOLUME 91.7 fL (80-100); MEAN CORPUSCULAR HEMOGLOBIN 28.8 pg (25-34); MEAN CORPUSCULAR HGB CONC 31.4 g/dl (32-36); MEAN PLATELET VOLUME 9.4 fL (7.4-10.4); PLATELET COUNT 194 K/uL (130-400); RED BLOOD COUNT 3.51 M/uL (4.2-5.4); WHITE BLOOD COUNT 8.62 K/uL (4.8-10.8)
[2017-03-08 05:50] LABS: PROTHROMBIN TIME (PATIENT) 10.6 SECONDS (9.0-12.0)
[2017-03-08 06:13] LABS: BUN/CREATININE RATIO 17.6 (10-20); CALCIUM 8.3 mg/dl (8.5-10.1); CREATININE 1.4 mg/dl (0.60-1.20)
[2017-03-08] MEDS: ALUMINUM/MAGNESIUM/SIMETH (MAALOX MAX) 30 ML UDC PO PRN (07:37)
--- NOTE | 2017-03-08 07:51 | Orthopedic Progress Note ---
Orthopedic Progress Note Date of Service Mar 08, 2017. Subjective Post OP Day: 1 Reports: feeling well, pain controlled w PO medications, Denies: chest pain, SOB , nausea / vomiting, light headedness, calf pain Objective calves soft nontender, N/V intact, dressing C/D/I, A&O x3 Date Time Temp Pulse Resp B/P (MAP) Pulse Ox O2 Delivery O2 Flow Rate FiO2 03/08/17 07:27 36.6 104 16 135/80 (98) 90 Room Air 03/08/17 03:50 37.2 89 16 114/69 (84) 94 Room Air 03/07/17 23:30 CPAP 03/07/17 22:53 36.8 76 16 119/73 (88) 94 Room Air 03/07/17 20:36 67 128/76 (93) 03/07/17 20:17 36.6 70 16 131/68 (89) 93 Room Air 03/07/17 16:10 Room Air 03/07/17 14:57 36.5 58 16 107/68 (81) 98 Room Air 03/07/17 12:31 36.6 62 16 96/59 (71) 97 Room Air 03/07/17 11:35 62 16 93/58 (70) 95 Room Air 03/07/17 10:34 59 16 97/59 (72) 95 2.0 03/07/17 10:05 54 16 97/59 (72) 99 2.0 03/07/17 09:35 95 Nasal Cannula 2.0 03/07/17 09:35 95 Nasal Cannula 2.0 03/07/17 09:35 36.6 57 16 95/59 (71) 95 Nasal Cannula 2.0 03/07/17 09:30 36.5 65 16 105/68 96 Nasal Cannula 3 03/07/17 09:15 36.5 58 16 101/54 95 Nasal Cannula 3 03/07/17 09:00 60 16 97/54 95 Nasal Cannula 3 03/07/17 08:50 59 16 105/56 100 Oxymask 10 03/07/17 08:40 65 16 103/52 100 Oxymask 10 03/07/17 08:30 36 64 16 102/54 99 Oxymask 10 Laboratory Results 24 Hours: Test 03/08/17 05:18 Hematocrit 32.2 % Hemoglobin 10.1 g/dL Prothromb Time International Ratio 1.0 Prothrombin Time 10.6 SECONDS Assessment & Plan Assessment: s/p left EVA post-op day # 1 doing well Plan: - WBAT - PT/OT - abx completed - DVT prophylaxis: coumadin, TEDS, SCDs - Diet: Diabetic - insulin sliding scale - oral pain medication - Dressing change this AM - Home likely later today Inhouse Planning DVT Prophylaxis: TEDs, SCDs, Coumadin Discharge Planning Discharge Planning: home with home health Pain Management: Percocet DVT Prophylaxis: TEDs, Coumadin
[2017-03-08] MEDS: FERROUS GLUCONATE 324 MG TAB PO SCH ×3 (08:18→18:35)
[2017-03-08] MEDS: MULTIVITAMIN TAB PO SCH (09:00)
[2017-03-08] MEDS: INSULIN ASPART 100 UNITS/ML 3 ML PEN SC SCH ×4 (09:23→21:00)
[2017-03-08] MEDS: DOCUSATE SODIUM 100 MG CAP PO SCH ×2 (09:27→21:34)
[2017-03-08] MEDS: PANTOprazole SOD 40 MG TAB PO SCH (09:27)
[2017-03-08] MEDS: ASPIRIN 81 MG ECTAB PO SCH ×2 (09:27→21:34)
[2017-03-08] MEDS: NYSTATIN SUSP 500,000 U/5 ML UDC PO SCH ×4 (09:28→21:34)
[2017-03-08] MEDS: FUROSEMIDE 20 MG TAB PO SCH (10:46)
--- NOTE | 2017-03-08 12:39 | Anesthesiology Progress Note ---
Anesthesia Post Op Note Date & Time Mar 08, 2017 at 12:38 Vital Signs Pain Intensity: 5.0 Vital Signs Past 12 Hours Date Time Temp Pulse Resp B/P (MAP) Pulse Ox O2 Delivery O2 Flow Rate FiO2 03/08/17 11:40 81 03/08/17 11:17 36.6 80 16 103/58 (73) 94 Room Air 03/08/17 07:27 36.6 104 16 135/80 (98) 90 Room Air 03/08/17 07:15 90 03/08/17 03:50 37.2 89 16 114/69 (84) 94 Room Air Notes Mental Status: alert / awake / arousable, participated in evaluation Pt Amnestic to Procedure: Yes Nausea / Vomiting: adequately controlled Pain: adequately controlled Airway Patency, RR, SpO2: stable & adequate BP & HR: stable & adequate Hydration State: stable & adequate Neuraxial Anesthesia: was administered, sensory block resolved Anesthetic Complications: no major complications apparent
--- NOTE | 2017-03-08 13:35 | Progress Note ---
Medicine Progress Note Date & Time of Visit: Mar 08, 2017 at 13:32. (Awa Flowers, P.A.-C.) Subjective Patient seen and examined. Resting comfortably in bed. Pain controlled with PO medications. Endorses some nausea after breakfast today but requested zofran. Denies headache, lightheadedness, palpitations, chest pain, SOB, abd pain, vomiting, calf pain, LE swelling. (Awa Flowers, P.A.-C.) Objective Last 8 Hrs Date Time Temp Pulse Resp B/P (MAP) Pulse Ox O2 Delivery O2 Flow Rate FiO2 03/08/17 11:40 81 03/08/17 11:17 36.6 80 16 103/58 (73) 94 Room Air 03/08/17 07:27 36.6 104 16 135/80 (98) 90 Room Air 03/08/17 07:15 90 Physical Exam: General Appearance: WD/WN, no apparent distress Head: normocephalic, atraumatic Eyes: normal inspection, PERRL, EOMI, sclera and conjunctiva normal ENT: hearing grossly normal, pharynx normal, moist mucous membranes Neck: supple, no JVD, no adenopathy Respiratory/Chest: lungs clear to auscultation. No wheezes, rales or rhonci. No respiratory distress or accessory muscle use Cardiovascular: regular rate, rhythm, no murmur, normal peripheral pulses Abdomen/GI: normal bowel sounds, soft, non-tender to palpation Extremities/Musculoskelatal: normal inspection, no calf tenderness, normal capillary refill, no pedal edema. L knee with bandage in place and ice below. Neurologic/Psych: alert, normal mood/affect, oriented x 3 Skin: normal color, warm/dry Laboratory Results: Last 24 Hours Test 03/07/17 17:11 03/07/17 20:41 03/08/17 05:18 03/08/17 07:59 Bedside Glucose 78 mg/dl 108 mg/dl 177 mg/dl White Blood Count 8.62 K/uL Red Blood Count 3.51 M/uL Hemoglobin 10.1 g/dL Hematocrit 32.2 % Mean Corpuscular Volume 91.7 fL Mean Corpuscular Hemoglobin 28.8 pg Mean Corpuscular Hemoglobin Concent 31.4 g/dl RDW Standard Deviation 55.3 fL RDW Coefficient of Variation 16.6 % Platelet Count 194 K/uL Mean Platelet Volume 9.4 fL Prothrombin Time 10.6 SECONDS Prothromb Time International Ratio 1.0 Sodium Level 137 mmol/L Potassium Level 5.0 mmol/L Chloride Level 105 mmol/L Carbon Dioxide Level 25 mmol/L Anion Gap 7.0 mmol/L Blood Urea Nitrogen 25 mg/dl Creatinine 1.40 mg/dl Est Creatinine Clear Calc Drug Dose 39.4 ml/min Estimated GFR () 43.1 Estimated GFR (Non- 37.2 BUN/Creatinine Ratio 17.6 Random Glucose 198 mg/dl Calcium Level 8.3 mg/dl Test 03/08/17 11:54 Bedside Glucose 178 mg/dl (Awa Flowers, P.A.-C.) Assessment & Plan This is a 71yo F with a PMH of CAD, CHF, DM II, CKD III, HTN, HLD, Hypothyroidism who is POD#1 s/p L TKA. S/P L TKA: -POD# 1. Surgery performed by Dr. An -Pt is doing well post-operatively -Per ortho for pain control, wound care, anticoagulation and activities -Monitor H&H, continue incentive spirometry, PT/OT when appropriate Diastolic CHF: -Compensated. Euvolemic on exam -Resume Lasix with close monitoring of Cr HTN: -Normotensive -Cont Verapamil and Lisinopril TAE: - CPAP to be provided DM II: -BG within goal range post-operatively -Continue SSI -Discharge on home regimen Hypothyroidism: -Stable -Cont Synthroid CKD III: -Cr 1.4 -Increased from 1.2 a few weeks ago -Continue monitoring BMP -Avoid nephrotoxic agents when able CAD: -No chest pain -Continue ASA, Statin DVT Ppx: per ortho Code status: FULL PCP: Shelly Dispo: Per ortho Current Inpatient Medications: Current Inpatient Medications Medications (Trade) Dose Ordered Sig/Jenny Route Start Time Stop Time Status Last Admin Dose Admin Oxycodone HCl (Roxicodone Immediate Rel Tab) 1 TABLET FOR PAIN RATING... Q4H PRN PO 03/07/17 08:45 03/21/17 08:44 03/08/17 12:37 10 MG Morphine Sulfate (MoRPHine SULFATE INJ) 2 mg Q1H PRN IV 03/07/17 08:45 03/21/17 08:44 03/08/17 07:36 2 MG Acetaminophen (Tylenol Tab) 650 mg Q6H PRN PO 03/07/17 08:45 04/06/17 08:44 Magnesium Hydroxide (Milk Of Magnesia Susp) 30 ml Q6H PRN PO 03/07/17 08:45 04/06/17 08:44 Docusate Sodium (coLACE CAP) 100 mg BID PO 03/07/17 21:00 04/06/17 20:59 03/08/17 09:27 100 MG Diphenhydramine HCl (Benadryl Inj) 25 mg Q8H PRN IV 03/07/17 08:45 04/06/17 08:44 Al Hydrox/Mg Hydrox/Simethicone (Maalox Max Susp) 15 ml Q4H PRN PO 03/07/17 08:45 04/06/17 08:44 03/08/17 07:37 15 ML Multivitamins (Multivitamin Tab) 1 tab QAM PO 03/08/17 09:00 04/07/17 08:59 Ondansetron HCl (Zofran Inj) 4 mg Q6H PRN IV 03/07/17 08:45 04/06/17 08:44 03/08/17 08:15 4 MG Metoclopramide HCl (Reglan Inj) 10 mg Q6H PRN IV 03/07/17 08:45 04/06/17 08:44 03/08/17 09:24 10 MG Ferrous Gluconate (Ferrous Gluconate Tab) 324 mg TIDM PO 03/07/17 12:30 04/06/17 12:29 03/07/17 18:13 324 MG Pantoprazole Sodium (Protonix Tab) 40 mg QAM PO 03/08/17 09:00 04/07/17 08:59 03/08/17 09:27 40 MG Aspirin (Ecotrin Tab) 81 mg BID PO 03/07/17 21:00 04/06/17 20:59 03/08/17 09:27 81 MG Atorvastatin Calcium (Lipitor Tab) 40 mg HS PO 03/07/17 21:00 04/06/17 20:59 03/07/17 20:38 40 MG Furosemide (Lasix Tab) 20 mg QAM PO 03/08/17 09:00 04/07/17 08:59 03/08/17 10:46 20 MG Levothyroxine Sodium (Synthroid Tab) 125 mcg DAILYBB PO 03/08/17 06:00 04/07/17 05:59 03/08/17 05:35 125 MCG Lisinopril (Zestril Tab) 10 mg HS PO 03/07/17 21:00 04/06/17 20:59 03/07/17 20:38 10 MG Verapamil HCl (Calan-Sr Tab) 240 mg HS PO 03/07/17 21:00 04/06/17 20:59 03/07/17 20:37 240 MG Insulin Aspart (novoLOG ASPART) SLIDING SCALE G... ACHS SC 03/07/17 12:00 04/06/17 11:59 03/08/17 12:43 3 UNITS Glucose (Glucose 40% Gel) 15-30 GRAMS 15 GRAMS... UD PRN PO 03/07/17 10:15 04/06/17 10:14 Glucose (Glucose Chew Tab) 4-8 Tablets 4 Tabl... UD PRN PO 03/07/17 10:15 04/06/17 10:14 Dextrose (Dextrose 50% 50ML Syringe) 25-50ML OF 50% DW IV FOR... UD PRN IV 03/07/17 10:15 04/06/17 10:14 Glucagon (Glucagon Inj) 1 mg UD PRN SQ 03/07/17 10:15 04/06/17 10:14 Morphine Sulfate (MoRPHine SULFATE INJ) 4 mg Q1H PRN IV 03/07/17 10:15 03/21/17 10:14 03/08/17 05:35 4 MG Nystatin (Mycostatin Susp) 5 ml QID PO 03/07/17 17:00 03/17/17 16:59 03/08/17 12:38 5 ML (Awa Flowers ., P.A.-C.) Medicine Attending Physician Addendum, Dr. Llamas. I have seen and examined the patient with KANA Flowers. I agree with the above assessment and plan (Kirby Llamas M.D.)
[2017-03-08] MEDS ORDERED: WARFARIN SOD 5 MG TAB PO SCH (16:00)
--- NOTE | 2017-03-08 19:49 | PROGRESS NOTE ---
DATE: 03/08/2017 SUBJECTIVE: The patient is doing well, was little bit timid about going home based on some nausea, early in the day, has not had any since. OBJECTIVE: Vital signs are stable. T max is 37.4. Wound dressing clean, dry and intact. Neurovascular check is normal. Pulses in the 70s. LABORATORY DATA: Sugars in the 150-170 range. ASSESSMENT AND PLAN: Overall, doing reasonably well. Will have PT, OT tomorrow and likely be discharged in the morning after some time tomorrow morning. We will follow up in the office as previously arranged. Scheduled for home health. QUITA
--- NOTE | 2017-03-08 19:55 | DISCHARGE SUMMARY ---
CHIEF COMPLAINT: Left knee pain. HISTORY OF PRESENT ILLNESS: A 71-year-old female admitted for elective left total knee replacement. Hospital course has been relatively uneventful. She had some minor nausea, has not had any since early this morning. She is little bit timid about leaving because of that so she stayed. She will be discharged tomorrow after PT/OT as long as she continues to progress. PAST MEDICAL HISTORY: Remarkable for hypertension, elevated cholesterol, heart palpitations, diastolic heart failure, arterial spasms, asthma, sleep apnea, uses CPAP, right hand fingertip numbness, diabetes, hypothyroidism, borderline anemia, easy bruising, osteoarthritis, back pain, GERD, hiatal hernia, stage 3 chronic kidney failure, obesity, vertigo and skin cancer. PREVIOUS SURGERIES: Include shoulder replacement; cataract surgery; knee arthroscopies; ovarian cyst removal; cardiac surgery, open heart; cholecystectomy; eyelid surgery; varicose vein stripping; tonsillectomy and appendectomy. PREADMISSION MEDICATIONS: Include atorvastatin, betamethasone cream, CPAP, daily vitamins, clotrimazole, Coenzyme Q10, Ecotrin, furosemide, lansoprazole, Lantus, Synthroid, lisinopril, magnesium oxide, meclizine, Meloxicam, Prandin, Krill oil, Systane eyedrops, Trulicity pen injection, Tylenol p.r.n., valacyclovir 500 mg daily, verapamil and vitamin D. She will discontinue the Meloxicam, add Coumadin to keep INR 1.8 to 2.2, we will discharge on 4 mg if INR is less than 1.5 and 2 mg if INR is greater, then 1.5. For p.r.n. pain medication, please see prescription. FAMILY HISTORY: Noncontributory. 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 No tobacco or alcohol use. She is . Occasional alcohol socially only. REVIEW OF SYSTEMS: Noncontributory. HOSPITAL COURSE: Hospital course has been relatively uneventful other than some minor nausea. She avoids narcotics and she does not have any issues. She takes the antiemetics, she feels well. At this point in time, she will follow up. She will be likely discharged tomorrow on 03/09/2017 after PT/OT. She will follow up in the office in roughly 2 weeks for staple removal. QUITA
[2017-03-08] MEDS: ATORVASTATIN 40 MG TAB PO SCH (21:34)
[2017-03-08] MEDS: VERAPAMIL HCL 240 MG TABCR PO SCH (21:34)
[2017-03-08] MEDS: LISINOPRIL 10 MG TAB PO SCH (21:35)
[2017-03-09] MEDS: OXYCODONE HCL IR 5 MG TAB (IMMEDIATE RELEASE) PO PRN (05:48)
[2017-03-09] MEDS: LEVOTHYROXINE 125 MCG TAB PO SCH (05:48)
[2017-03-09 06:18] LABS: INR 1.2 (0.9-1.1); PROTHROMBIN TIME (PATIENT) 12.5 SECONDS (9.0-12.0)
[2017-03-09 07:01] VITALS: BP 103/60; PULSE 66; TEMP 37.6; O2SAT 90
--- NOTE | 2017-03-09 07:05 | PROGRESS NOTE ---
DATE: 03/09/2017 Postop day #2 status post left total knee replacement. Despite asking her to get out of bed and walk last evening, she did not do that. However, she did state that she felt asleep shortly after I visited her last night and slept the whole night until about 5:00 a.m. She did not require any medication during that time. She states when she got up to go to bathroom this morning, her knee was sore. Exam today reveals T-max of 37.4. Vital signs are stable. Glucose is in the 140 range. Wound dressing clean, dry and intact. Calves nontender. Abdomen nontender. Neurovascular check, femoral sciatic nerve is normal. INR is 1.2. ASSESSMENT: Still not quite as motivated as she needs to be. Advised her that she needs to get up and move around more. She will have a new dressing put on today by the PAs. She is to leave that dressing on until Sunday. She will receive her Coumadin prior to discharge today per normogram . On Sunday and Sunday, she should take 4 mg and then get her INR checked on Sunday and await further instructions. Follow up with us in 2 weeks. QUITA
--- NOTE | 2017-03-09 07:15 | DISCHARGE SUMMARY ---
Addendum The patient slept almost the entire night with not requiring any pain medications. She had some pain this morning getting up to go to the bathroom. She is still timid and not pushing herself enough. I have encouraged her to make sure she walks more and to do her exercises. Her INR this morning is 1.2. She will be discharged on 4 mg of Coumadin. She will get dose of Coumadin per nomogram today prior to discharge, take 4 mg on Sunday and 4 mg on Sunday and check INR on Sunday. She has [facility] [employer] [facility]. She will follow up with us in 2 weeks. She was instructed to leave the dressing that is put on today until Sunday to keep gentle compression on the wound over the weekend.
[2017-03-09 07:30] VITALS: O2SAT 90
--- NOTE | 2017-03-09 08:22 | Orthopedic Progress Note ---
Orthopedic Progress Note Date of Service Mar 09, 2017. Subjective Post OP Day: 2 Reports: feeling well, pain controlled w PO medications, Denies: complaints, chest pain, SOB, nausea / vomiting, light headedness, calf pain, using [employer] Objective calves soft nontender, N/V intact, capillary refill less than 2 sec., dressing C /D/I, incision C/D/I, A&O x3, toes mobile, CMS intact Date Time Temp Pulse Resp B/P (MAP) Pulse Ox O2 Delivery O2 Flow Rate FiO2 03/09/17 07:01 37.6 66 16 103/60 (74) 90 Room Air 03/08/17 23:30 CPAP 2.0 03/08/17 22:55 37.4 78 18 114/66 (82) 95 CPAP 03/08/17 21:38 93 144/69 (94) 03/08/17 16:37 Room Air 03/08/17 15:15 37.4 77 16 111/65 (80) 93 Room Air 03/08/17 11:40 81 03/08/17 11:17 36.6 80 16 103/58 (73) 94 Room Air Laboratory Results 24 Hours: Test 03/09/17 05:33 Prothromb Time International Ratio 1.2 Prothrombin Time 12.5 SECONDS Assessment & Plan Assessment: s/p left EVA post-op day # 2 doing well Plan: - WBAT - PT/OT - abx completed - DVT prophylaxis: coumadin, TEDS, SCDs - Diet: Diabetic - insulin sliding scale - oral pain medication - Dressing changed this AM by SUZIE - Home likely later today Discharge Planning Discharge Planning: home with home health Pain Management: Percocet DVT Prophylaxis: TEDs, Coumadin
[2017-03-09] MEDS ORDERED: ONDA4TAB65 PO (08:25)
[2017-03-09] MEDS: MULTIVITAMIN TAB PO SCH (08:32)
[2017-03-09] MEDS: PANTOprazole SOD 40 MG TAB PO SCH (08:32)
[2017-03-09] MEDS: FERROUS GLUCONATE 324 MG TAB PO SCH ×2 (08:32→12:51)
[2017-03-09] MEDS: DOCUSATE SODIUM 100 MG CAP PO SCH (08:32)
[2017-03-09] MEDS: ASPIRIN 81 MG ECTAB PO SCH (08:32)
[2017-03-09] MEDS: NYSTATIN SUSP 500,000 U/5 ML UDC PO SCH ×2 (08:33→12:51)
[2017-03-09] MEDS: FUROSEMIDE 20 MG TAB PO SCH (08:33)
[2017-03-09] MEDS: INSULIN ASPART 100 UNITS/ML 3 ML PEN SC SCH ×2 (08:58→12:58)
[2017-03-09 09:40] VITALS: BP 103/60; PULSE 66; TEMP 37.6; O2SAT 90
[2017-03-09] MEDS: ALUMINUM/MAGNESIUM/SIMETH (MAALOX MAX) 30 ML UDC PO PRN (11:52)
[2017-03-09] MEDS ORDERED: WARFARIN SOD 5 MG TAB PO STA (12:01)
== END 2017-03-09 13:20 | disposition home health service (06) | DRG 470 ==
LOC: C.ACU 04:57 → C.3E 06:20 → ENRESERV 09:09
PROVIDERS: ADMIT Physical Medicine & Rehabilitation Sports Medicine; ATTEND Physical Medicine & Rehabilitation Sports Medicine
PROC: 0SRD0J9 Replacement of Left Knee Joint with Synthetic Substitute, Cemented, Open Approach (ICD-10-PCS; principal; 2017-03-07 07:00)
DX: M17.12 Unilateral primary osteoarthritis, left knee (principal); I50.40 Unspecified combined systolic (congestive) and diastolic (congestive) heart failure; I13.0 Hypertensive heart and chronic kidney disease with heart failure and stage 1 through stage 4 chronic kidney disease, or unspecified chronic kidney disease; E78.00 Pure hypercholesterolemia, unspecified; N18.3 Chronic kidney disease, stage 3 (moderate); G47.30 Sleep apnea, unspecified; K21.9 Gastro-esophageal reflux disease without esophagitis; E66.9 Obesity, unspecified; E11.22 Type 2 diabetes mellitus with diabetic chronic kidney disease; E03.9 Hypothyroidism, unspecified; I25.10 Atherosclerotic heart disease of native coronary artery without angina pectoris; J45.909 Unspecified asthma, uncomplicated; Z79.4 Long term (current) use of insulin; Z79.82 Long term (current) use of aspirin; Z79.899 Other long term (current) drug therapy; Z68.35 Body mass index [BMI] 35.0-35.9, adult

== ENCOUNTER → 2017-04-30 | Outpatient (CLI) | payer OTHER ==
[~2017-04-30] MED LIST changes: -COEN75CA PO; -MELO15TA10 PO; +ONDA4TAB65 PO; +OXYC-57 PO; +REPA1TAB40 PO; -REPA1TAB42 PO; +WARF2TAB PO
== END | disposition home or self-care (01) ==
LOC: C.RDSM 12:04
PROVIDERS: ATTEND Physical Medicine & Rehabilitation Sports Medicine
DX: M17.0 Bilateral primary osteoarthritis of knee (principal)

== ENCOUNTER → 2017-06-01 | Outpatient (CLI) | payer OTHER | END | disposition home or self-care (01) | LOC: C.LABSPEC 14:23 | PROVIDERS: ATTEND Urology | DX: R31.29 Other microscopic hematuria (principal); R30.0 Dysuria; N39.0 Urinary tract infection, site not specified ==

== ENCOUNTER → 2017-06-05 | Outpatient (CLI) | payer OTHER | END | disposition home or self-care (01) | LOC: C.LAB 16:38 | PROVIDERS: ATTEND Nurse Practitioner Adult Health | DX: R30.0 Dysuria (principal) ==

== ENCOUNTER → 2017-06-05 | Outpatient (CLI) | payer OTHER ==
--- NOTE | 2017-06-05 09:32 | DIAGNOSTIC IMAGING REPORT ---
RENAL ULTRASOUND HISTORY: R31.29 Hematuria, [id number] UTI COMPARISON: None. FINDINGS: Right kidney: 9.8 cm. The lower pole is partially obscured by overlying bowel gas. There is no pleural exophytic cyst measuring 5.7 cm. There is also a 2 cm interpolar cyst. Moderate cortical thickening with increased cortical echogenicity. No hydronephrosis. Left kidney: 10.3 cm. No hydronephrosis. A 1.5 cm parapelvic cyst. Moderate cortical thinning with increased cortical echogenicity. Bladder: No bladder wall thickening. The bilateral ureteral jets were identified. IMPRESSION: 1. Bilateral renal cysts. 2. No hydronephrosis. 3. Cortical thinning with increased cortical echogenicity within the bilateral kidneys. This favors medical renal disease. Electronically signed by: Michi Almonte M.D. 06/05/2017 9:31 AM Dictated Date/Time: 06/05/2017 9:28 AM
== END | disposition home or self-care (01) ==
LOC: C.ULTR 08:29
PROVIDERS: ATTEND Urology
DX: R30.0 Dysuria (principal); R31.29 Other microscopic hematuria; N39.0 Urinary tract infection, site not specified; N28.1 Cyst of kidney, acquired; R93.421 Abnormal radiologic findings on diagnostic imaging of right kidney; R93.422 Abnormal radiologic findings on diagnostic imaging of left kidney

== ENCOUNTER → 2017-09-03 | Outpatient (CLI) | payer OTHER ==
--- NOTE | 2017-09-03 11:25 | DIAGNOSTIC IMAGING REPORT ---
LEFT KNEE 3 VIEWS INCLUDING BILATERAL STANDING AP VIEWS CLINICAL HISTORY: Left knee pain. History of left knee arthroplasty. COMPARISON: April 2017 DISCUSSION: Standing AP views and knees reveal right-sided chondrocalcinosis with moderate osteoarthritic change. On the left there are postsurgical changes of a total left knee arthroplasty and patellar resurfacing. There is no periprosthetic lucency. There are no acute fractures. IMPRESSION: 1. Postsurgical changes of a total left knee arthroplasty. No complicating features identified. 2. Right knee chondrocalcinosis and moderate osteoarthritic change 3. No acute fractures. Electronically signed by: Socrates Isaacs M.D. 09/03/2017 11:24 AM Dictated Date/Time: 09/03/2017 11:22 AM
== END | disposition home or self-care (01) ==
LOC: C.RDSM 18:40
PROVIDERS: ATTEND Physician Assistant
DX: Z96.652 Presence of left artificial knee joint (principal); M11.261 Other chondrocalcinosis, right knee

== ENCOUNTER 2017-09-27 10:12 | Day surgery (SDC) | payer OTHER ==
[2017-09-13 08:27] VITALS: BMI 34.0
--- NOTE | 2017-09-13 09:08 | PAT Medication Instructions ---
Service Date Sep 13, 2017. Current Home Medication List Acetaminophen (Tylenol), 1,000 MG PO TID PRN for Pain Aspirin (Aspirin Ec), 81 MG PO BID Atorvastatin (Lipitor), 40 MG PO HS Biotin (Biotin 5000), 1 CAP PO QAM Calcium Carbonate (Antacid) (Tums E-X 750), 1 TAB PO PRN PRN for Indigestion Cephalexin Monohydrate (Keflex), 250 MG PO QPM Cholecalciferol (Vitamin D3), 1 TAB PO QAM Dulaglutide (Trulicity), 1.5 UNITS SQ SAT Furosemide (Lasix), 20 MG PO QAM Insulin Glargine (Lantus), 22 UNITS SC QPM Lansoprazole (Prevacid), 30 MG PO QAM Levothyroxine Sodium (Synthroid), 125 MCG PO QAM Lisinopril (Prinivil), 10 MG PO HS Magnesium Oxide (Mag-Ox), 400 MG PO QPM Meloxicam (Meloxicam), 1 TAB PO QAM Multiple Vitamins W/ Minerals (Centrum Silver 50+Women), 1 TAB PO QAM Oxybutynin Chloride (Ditropan Xl), 1 TAB PO QPM Polyethylene Glycol-Propylene (Systane Gel), 1 DROP OPB BID Probiotic Product (Probiotic), 1 CAP PO QPM Repaglinide (Prandin), 1 MG PO BID PRN for blood sugar Valacyclovir (Valtrex), 500 MG PO QAM Verapamil Sust Rel (Calan Sr Ext Rel), 240 MG PO HS Medication Instructions For Your Scheduled Surgery -Follow your surgeon's instructions for: Aspirin (Aspirin Ec), 81 MG PO BID Meloxicam (Meloxicam), 1 TAB PO QAM -Continue as directed: Dulaglutide (Trulicity), 1.5 UNITS SQ SAT - Hold the following medications the morning of surgery: Biotin (Biotin 5000), 1 CAP PO QAM Calcium Carbonate (Antacid) (Tums E-X 750), 1 TAB PO PRN PRN for Indigestion Cholecalciferol (Vitamin D3), 1 TAB PO QAM Furosemide (Lasix), 20 MG PO QAM Multiple Vitamins W/ Minerals (Centrum Silver 50+Women), 1 TAB PO QAM Repaglinide (Prandin), 1 MG PO BID PRN for blood sugar - Take the following medications the morning of surgery with a sip of water: Acetaminophen (Tylenol), 1,000 MG PO TID PRN for Pain (if needed, can be taken up to four hours before surgery) Lansoprazole (Prevacid), 30 MG PO QAM Levothyroxine Sodium (Synthroid), 125 MCG PO QAM Polyethylene Glycol-Propylene (Systane Gel), 1 DROP OPB BID Valacyclovir (Valtrex), 500 MG PO QAM - Take the following medications as scheduled the night before surgery: Acetaminophen (Tylenol), 1,000 MG PO TID PRN for Pain (if needed) Atorvastatin (Lipitor), 40 MG PO HS Calcium Carbonate (Antacid) (Tums E-X 750), 1 TAB PO PRN PRN for Indigestion ( if needed) Cephalexin Monohydrate (Keflex), 250 MG PO QPM Insulin Glargine (Lantus), 22 UNITS SC QPM Lisinopril (Prinivil), 10 MG PO HS Magnesium Oxide (Mag-Ox), 400 MG PO QPM Oxybutynin Chloride (Ditropan Xl), 1 TAB PO QPM Polyethylene Glycol-Propylene (Systane Gel), 1 DROP OPB BID Probiotic Product (Probiotic), 1 CAP PO QPM Repaglinide (Prandin), 1 MG PO BID PRN for blood sugar (if needed) Verapamil Sust Rel (Calan Sr Ext Rel), 240 MG PO HS If you have any questions please call us at [phone] or [phone] or [phone]
[2017-09-13 09:53] LABS: BASO % 0.7 %; BASO ABS # 0.04 K/uL (0-0.2); EOS ABS # 0.36 K/uL (0-0.5); HEMOGLOBIN 12.6 g/dL (12.0-16.0); LYMPH % 22.1 %; LYMPH ABS # 1.32 K/uL (1.2-3.4); MEAN CELL VOLUME 90.5 fL (80-100); MEAN CORPUSCULAR HEMOGLOBIN 29.2 pg (25-34); MEAN CORPUSCULAR HGB CONC 32.3 g/dl (32-36); MEAN PLATELET VOLUME 9.2 fL (7.4-10.4); MONO % 10.7 %; MONO ABS # 0.64 K/uL (0.11-0.59); NEUT % 60.5 %; PLATELET COUNT 238 K/uL (130-400); RED CELL DISTRIBUTION WIDTH SD 56.4 fL (36.4-46.3); WHITE BLOOD COUNT 5.96 K/uL (4.8-10.8)
[2017-09-13 10:18] LABS: CALCIUM 9.5 mg/dl (8.5-10.1); CREATININE 1.15 mg/dl (0.60-1.20); POTASSIUM 4.5 mmol/L (3.5-5.1)
[~2017-09-27] VITALS: Ht 162.6 cm; Wt 89.9 kg
[~2017-09-27 10:12] MED LIST changes: +ATROPINE SULFATE 0.1 MG/ML 5ML SYR IV PRN; +CIPROFLOXACIN / D5W 400 MG IV SCH; +EpHEDrine SULFATE INJ 50 MG/ML AMP IV PRN; +HYDROmorphone INJ 2 MG/ML SYR/VIAL IV PRN; +KFL/250 PO; -KRIL1CAP3 PO; +LACTATED RINGER'S 1000ML 1,000 ML IV SCH; +MELO-83 PO; +MULT-1092 PO; -ONDA4TAB65 PO; +ONDANSETRON INJ 2 MG/ML 2 ML VIAL IV PRN; +OXYB5TAB21 PO; -OXYC-57 PO; +PHENYLEPHRINE 100MCG/ML 5ML SYR IV PRN; -WARF2TAB PO
[2017-09-27] MEDS ORDERED: NITR-5 PO (10:33)
[2017-09-27 10:35] VITALS: BP 135/61; PULSE 62; TEMP 36.8; O2SAT 98; Ht 162.6 cm; Wt 89.9 kg
[2017-09-27] MEDS ORDERED: SCOPOLAMINE 1.5 MG TDSY TD ONE (11:15)
[2017-09-27] MEDS ORDERED: FENTANYL CITRATE INJ 50 MCG/1 ML 2 ML VIAL ONE ×2 (11:39→12:47)
--- NOTE | 2017-09-27 12:16 | History & Physical Bridge Note ---
H&P Re-Evaluation Bridge Note: I have examined the patient, reviewed the History & Physical and in the interval since the performance of the History & Physical I have noted the following changes of clinical significance: No changes noted
[2017-09-27] MEDS ORDERED: FLUC100T4 PO (12:29)
[2017-09-27] MEDS ORDERED: OXYC7.5T65 PO (12:29)
[2017-09-27] MEDS ORDERED: PHEN-876 PO (12:29)
[2017-09-27] MEDS ORDERED: CIPR-255 PO (12:29)
[2017-09-27] MEDS ORDERED: OXYCODONE/ACETAMINOPHEN 7.5-325 TAB PO PRN (12:30)
--- NOTE | 2017-09-27 12:30 | Discharge Instructions ---
Discharge Instructions Date of Service September 27, 2017. Admission Reason for Admission: Hematuria Discharge Discharge Diagnosis / Problem: Hematuria Discharge Goals Goal(s): Decrease discomfort, Improve function Activity Recommendations Activity Limitations: resume your previous activity Lifting Limitations: gradually increase as tolerated Exercise/Sports Limitations: gradually increase as tolerated . Instructions / Follow-Up Instructions / Follow-Up May have blood in urine. May have discomfort. May have pain or spasms and sensation to void. Chaparro care instructions as given. Plan to remove in office at followup. Call if any fevers or chills. Current Hospital Diet Patient's current hospital diet: Discharge Diet Recommended Diet: Regular Diet Procedures Procedures Performed: Cystoscopy and dilation with biopsy and fulguration Pending Studies Studies pending at discharge: no Medical Emergencies . Who to Call and When: Medical Emergencies: If at any time you feel your situation is an emergency, please call 911 immediately. . Non-Emergent Contact Non-Emergency issues call your: Primary Care Provider, Urologist Call Non-Emergent contact if: you have a fever, temperature is above 101, temperature is above 101.5, your pain is not controlled, your pain is worsening , your pain is unusual for you . . "Provider Documentation" section prepared by Sky Carrasco,. .
[2017-09-27] MEDS ORDERED: ONDANSETRON INJ 2 MG/ML 2 ML VIAL ONE (12:57)
[2017-09-27] MEDS ORDERED: LIDOCAINE HCL 2% 2 ML VIAL (20MG/ML) ONE (12:57)
[2017-09-27] MEDS ORDERED: PROPOFOL IV EMULSION 10 MG/ML 20 ML VIAL ONE (12:57)
--- NOTE | 2017-09-27 13:00 | [facility] Operative Report ---
Operative Report Operative Date September 27, 2017. Pre-Operative Diagnosis Bladder lesion, Uretheral Lesion, Uretheral Stricture Post-Operative Diagnosis Same Procedure(s) Performed Cystoscopy with urethral dilation and biopsy and fulguration of bladder lesion and biopsy and fulguration of urethral lesion and meatal lesion Surgeon Carrasco Estimated Blood Loss Minimal Findings Lesion of bladder and lesions of urethra Specimens 1. Bladder Biopsy 2. Urethral Biopsy, proximal 3. Urtheral Meatus Biopsy Drains 18 Fr Chaparro Anesthesia Type General Complication(s) none Disposition Recovery Room / PACU Indications Gross hematuria with frequent UTI and lesions on cystoscopy in office. Risks and benefits discussed at length. Description of Procedure Patient was consented and brought back to the operating room. Patient was placed under anesthesia in the supine position and moved to the dorsal lithotomy position. Patient was prepped and draped in the regular sterile fashion. A time out was completed. A urethral sound kit was selected and the urethra was dilated with copious lubrication. This was dilated to 26 Fr. With dilation completed, a 30degree Cystoscope was placed into the bladder and the entire bladder was examined. The UO's were identified. The entire bladder was fully surveyed. 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 An area at the posterior bladder was selected and biopsied and sent for analysis with cold cup biopsy. A bugbee cautery device was used to fulgurate the area. Attention was taken to the bladder neck and proximal urethra. An indurated, irritated, and raised appearance was noted as noted in previous scope. The tissue was biopsied at the 3 and 9 o'clock position and sent for analysis. This was also fulgurated to control bleeding. At this point, the entire urethra was once again inspected. A piece of tissue was noted at the meatus that appears to have been causing the meatal stenosis. This tissue was biopsied. The bladder was left partially full. The scope was removed. An 18 Fr Chaparro was placed with good drainage. The patient was cleaned, aroused from anesthesia, and transferred to the pacu in stable condition having tolerated the procedure well with no complications. I was present and participated in all aspects of the procedure. The patient will be monitored in the PACU until transferred. I attest to the content of the Intraoperative Record and any orders documented therein. Any exceptions are noted below.
[2017-09-27 13:44] VITALS: BP_SYST 142; PULSE 49; TEMP 36.4; O2SAT 97
--- NOTE | 2017-09-27 14:08 | Anesthesiology Progress Note ---
Anesthesia Post Op Note Date & Time September 27, 2017 at 14:08 Vital Signs Pain Intensity: 0 Vital Signs Past 12 Hours Date Time Temp Pulse Resp B/P (MAP) Pulse Ox O2 Delivery O2 Flow Rate FiO2 09/27/17 13:44 36.4 49 18 142/ 97 Room Air 09/27/17 13:35 36.1 52 16 134/64 100 Room Air 09/27/17 13:25 56 16 136/65 100 Oxymask 10 09/27/17 13:15 56 16 122/77 100 Oxymask 10 09/27/17 13:08 36.0 68 16 146/64 100 Oxymask 10 09/27/17 10:35 36.8 62 18 135/61 (85) 98 Room Air Notes Mental Status: alert / awake / arousable, participated in evaluation Pt Amnestic to Procedure: Yes Nausea / Vomiting: adequately controlled Pain: adequately controlled Airway Patency, RR, SpO2: stable & adequate BP & HR: stable & adequate Hydration State: stable & adequate Anesthetic Complications: no major complications apparent
[2017-09-27 14:20] VITALS: BP 130/54; PULSE 60; O2SAT 96
[2017-09-27 15:36] VITALS: BP 141/60; PULSE 54; TEMP 36.5; O2SAT 94
== END 2017-09-27 15:50 | disposition home or self-care (01) ==
LOC: C.ACU 10:12
PROVIDERS: ATTEND Urology
DX: N30.21 Other chronic cystitis with hematuria (principal); N34.2 Other urethritis; N35.9 Urethral stricture, unspecified; R30.0 Dysuria; R35.0 Frequency of micturition; J45.909 Unspecified asthma, uncomplicated; I25.10 Atherosclerotic heart disease of native coronary artery without angina pectoris; N18.3 Chronic kidney disease, stage 3 (moderate); E78.5 Hyperlipidemia, unspecified; K21.9 Gastro-esophageal reflux disease without esophagitis; E66.9 Obesity, unspecified; I12.9 Hypertensive chronic kidney disease with stage 1 through stage 4 chronic kidney disease, or unspecified chronic kidney disease; E03.9 Hypothyroidism, unspecified; G47.33 Obstructive sleep apnea (adult) (pediatric); I50.30 Unspecified diastolic (congestive) heart failure; K44.9 Diaphragmatic hernia without obstruction or gangrene; M19.90 Unspecified osteoarthritis, unspecified site; E11.9 Type 2 diabetes mellitus without complications; Z87.440 Personal history of urinary (tract) infections; Z95.1 Presence of aortocoronary bypass graft; Z82.3 Family history of stroke; Z82.49 Family history of ischemic heart disease and other diseases of the circulatory system; Z79.82 Long term (current) use of aspirin; Z79.899 Other long term (current) drug therapy; Z88.0 Allergy status to penicillin; Z88.1 Allergy status to other antibiotic agents; Z88.2 Allergy status to sulfonamides; Z99.89 Dependence on other enabling machines and devices; Z86.718 Personal history of other venous thrombosis and embolism

== ENCOUNTER → 2017-12-19 | Outpatient (CLI) | payer OTHER ==
[~2017-12-19] MED LIST changes: -ATROPINE SULFATE 0.1 MG/ML 5ML SYR IV PRN; +CIPR-255 PO; -CIPROFLOXACIN / D5W 400 MG IV SCH; -EpHEDrine SULFATE INJ 50 MG/ML AMP IV PRN; -HYDROmorphone INJ 2 MG/ML SYR/VIAL IV PRN; -KFL/250 PO; -LACTATED RINGER'S 1000ML 1,000 ML IV SCH; +NITR-5 PO; -ONDANSETRON INJ 2 MG/ML 2 ML VIAL IV PRN; +OXYC7.5T65 PO; +PHEN-876 PO; -PHENYLEPHRINE 100MCG/ML 5ML SYR IV PRN
== END | disposition home or self-care (01) ==
LOC: C.LAB 14:53
PROVIDERS: ATTEND Nurse Practitioner Adult Health
DX: N39.0 Urinary tract infection, site not specified (principal); R35.0 Frequency of micturition

== ENCOUNTER → 2017-12-31 | Outpatient (CLI) | payer OTHER ==
--- NOTE | 2018-01-01 14:56 | MAMMOGRAPHY REPORT ---
BILATERAL DIGITAL SCREENING MAMMOGRAM TOMOSYNTHESIS WITH CAD: 12/31/2017 CLINICAL HISTORY: Routine screening. TECHNIQUE: The study was acquired using full field digital technology and interpreted from soft copy. Breast tomosynthesis in addition to standard 2D mammography was performed. Current study was also ev aluated with a Computer Aided Detection (CAD) system. COMPARISON: Comparison is made to exams dated: 12/27/2016 mammogram, 12/27/2015 mammogram, 10/13/2014 yanet mogram, 10/09/2013 mammogram, 10/07/2012 mammogram, and 10/05/2011 mammogram - [facility]. BREAST COMPOSITION: There are scattered areas of fibroglandular density in both breasts. FINDINGS: There is stable focal asymmetry in the left upper outer quadrant. A few benign rim calcifi cations bilaterally and stable nodularity in the lateral right breast. No suspicious mass, architectu ral distortion or cluster of microcalcifications is seen. IMPRESSION: ACR BI-RADS CATEGORY 1: NEGATIVE There is no mammographic evidence of malignancy. A 1 year screening mammogram is recommended.( 019) The patient will receive written notification of the results. Some breast cancers are not detected with mammography. A negative mammographic report should not emerita y biopsy if a clinically suggestive mass is present. Ariadna Pelayo M.D. ay/:12/31/2017 14:47:32 Bit Welder: RT Harshal(Svetlana)(M), [facility] letter sent: Normal 1/2 BI-RADS Code: ACR BI-RADS Category 1: Negative
== END | disposition home or self-care (01) ==
LOC: C.MAMM 13:22
PROVIDERS: ATTEND Internal Medicine
DX: Z12.31 Encounter for screening mammogram for malignant neoplasm of breast (principal)

== ENCOUNTER 2019-02-26 04:51 | Inpatient (IN) ==
--- NOTE | 2019-01-31 15:58 | PAT Medication Instructions ---
Medication Instructions Date of Service January 31, 2019 Home Medications biotin 2,500 mcg capsule 5,000 mcg PO DAILY lansoprazole 30 mg capsule,delayed release 30 mg PO QAM levothyroxine 125 mcg tablet 125 mcg PO QAM lisinopril 10 mg tablet 10 mg PO HS magnesium 400 mg (as magnesium oxide) capsule 400 mg PO DAILY meloxicam 15 mg tablet 7.5 mg PO QAM nitrofurantoin monohydrate/macrocrystals 100 mg capsule 100 mg PO HS repaglinide 1 mg tablet 1 mg PO TID PRN verapamil ER (SR) 240 mg tablet,extended release 240 mg PO HS aspirin [Aspir-81] 81 mg PO BID calcium carbonate [Tums] 200 mg PO UD PRN [id number] [Refresh Optive Mateusz-3 (PF)] 1 drp OPHTHALMIC (EYE) QID cholecalciferol (vitamin D3) [Vitamin D3] 400 unit PO QAM furosemide 20 mg PO QAM insulin glargine [Lantus U-100 Insulin] 22 unit SUBCUT HS rosuvastatin 40 mg PO HS valacyclovir 500 mg PO QAM ASK your prescriber and surgeon meloxicam 15 mg tablet 7.5 mg PO QAM STOP taking 2 weeks before surgery (or as soon as possible if surgery is within 2 weeks) biotin 2,500 mcg capsule 5,000 mcg PO DAILY DO NOT take the morning of surgery magnesium 400 mg (as magnesium oxide) capsule 400 mg PO DAILY calcium carbonate [Tums] 200 mg PO UD PRN cholecalciferol (vitamin D3) [Vitamin D3] 400 unit PO QAM furosemide 20 mg PO QAM Take morning of surgery With a small sip of water, OTHERWISE NOTHING TO EAT OR DRINK AFTER MIDNIGHT: lansoprazole 30 mg capsule,delayed release 30 mg PO QAM levothyroxine 125 mcg tablet 125 mcg PO QAM repaglinide 1 mg tablet 1 mg PO TID PRN (if needed) [id number] [Refresh Optive Mateusz-3 (PF)] 1 drp OPHTHALMIC (EYE) QID valacyclovir 500 mg PO QAM Take evening before surgery lisinopril 10 mg tablet 10 mg PO HS nitrofurantoin monohydrate/macrocrystals 100 mg capsule 100 mg PO HS repaglinide 1 mg tablet 1 mg PO TID PRN (if needed) verapamil ER (SR) 240 mg tablet,extended release 240 mg PO HS aspirin [Aspir-81] 81 mg PO BID calcium carbonate [Tums] 200 mg PO UD PRN (if needed) [id number] [Refresh Optive Mateusz-3 (PF)] 1 drp OPHTHALMIC (EYE) QID insulin glargine [Lantus U-100 Insulin] 22 unit SUBCUT HS rosuvastatin 40 mg PO HS Other Notes If you have any questions please call us at [phone] or [phone] or [phone] or [phone]
--- NOTE | 2019-02-03 11:01 | Anesthesiology Consultation ---
Date of Service February 03, 2019 Assessment & Plan (1) Encounter for pre-operative examination: - Awaiting review preop testing. - Awaiting surgeon-ordered PCP clearance scheduled 02/21 (Dr. Bravo; [facility]). - Awaiting ECHO scheduled 01/2019 (Tanika Ballard). - Cardiology: 12/04/18: "Prior coronary bypass grafting for ostial left main disease, possibly inflammatory with resolve on repeat cardiac catheterization. Initial surgery 2013. Followup cardiac catheterization May 2014 demonstrating 30% residual narrowing of the left main with occluded PALOMINO graft to the LAD.. With complex constellation history including chronically dilated aortic atherosclerotic coronary disease and longstanding labile hypertension with diastolic dysfunction all well compensated..No contraindications to proceeding with knee surgery as planned." ECHO ordered for aortic root/ascending aorta surveillance (scheduled for 01/2019). - Check BSG AM DOS Chart Review Chart Review: Patient seen in Pre Admission Testing Teaching & Discussion Pre-Anesthesia Teaching/Discussion Notes: Instructed NPO after midnight before surgery,except medications with 15 cc of water. Medication instructions provided according to the PAT guidelines. History Surgery Operation Date: 02/26/19 07:00 Proposed Procedures p Right Total Knee Arthroplasty - Chevy An MD Height/Weight Height: 5 ft 4 in Weight: 90.6 kg Allergies Allergy/AdvReac Type Severity Reaction Status Date / Time Bactrim Allergy Severe HIVES, Verified 09/27/17 10:27 ITCHING, ANAPHYLAXIS sulfamethoxazole Allergy Severe HIVES, Verified 01/29/19 13:33 ITCHING, ANAPHYLAXIS trimethoprim Allergy Severe HIVES, Verified 01/29/19 13:33 ITCHING, ANAPHYLAXIS cat dander Allergy Unknown AND DOGS - Verified 01/29/19 13:33 SNEEZING cortisone Allergy Unknown HIVES Verified 01/29/19 13:33 Penicillins Allergy Unknown HIVES Verified 01/29/19 13:33 Sulfa (Sulfonamide Allergy Unknown "BACTRIM" Verified 01/29/19 13:33 Antibiotics) HIVES, ITCHING AND ANAPHYLAXIS Chlorine Allergy Unknown ECZEMA Uncoded 01/29/19 13:33 Medications Home Medications Medication Instructions Recorded Confirmed Last Taken biotin 2,500 mcg capsule 5,000 mcg PO DAILY cap 01/03/19 01/28/19 Unknown lansoprazole 30 mg capsule,delayed 30 mg PO QAM cap 01/03/19 01/28/19 Unknown release levothyroxine 125 mcg tablet 125 mcg PO QAM tab 01/03/19 01/28/19 Unknown lisinopril 10 mg tablet 10 mg PO HS tab 01/03/19 01/28/19 Unknown magnesium 400 mg (as magnesium 400 mg PO DAILY cap 01/03/19 01/28/19 Unknown oxide) capsule meloxicam 15 mg tablet 7.5 mg PO QAM #30 tab 01/03/19 01/28/19 Unknown nitrofurantoin 100 mg PO HS #30 cap 01/03/19 01/28/19 Unknown monohydrate/macrocrystals 100 mg capsule repaglinide 1 mg tablet 1 mg PO TID PRN tab 01/03/19 01/28/19 Unknown verapamil ER (SR) 240 mg 240 mg PO HS tab 01/03/19 01/28/19 Unknown tablet,extended release aspirin [Aspir-81] 81 mg PO BID 01/28/19 01/29/19 Unknown calcium carbonate [Tums] 200 mg PO UD PRN 01/28/19 01/29/19 Unknown [id number] 1 drp OPHTHALMIC (EYE) QID 01/28/19 01/29/19 Unknown [Refresh Optive Mateusz-3 (PF)] cholecalciferol (vitamin D3) 400 unit PO QAM 01/28/19 01/29/19 Unknown [Vitamin D3] furosemide 20 mg PO QAM 01/28/19 01/29/19 Unknown insulin glargine [Lantus U-100 22 unit SUBCUT HS 01/28/19 01/29/19 Unknown Insulin] rosuvastatin 40 mg PO HS 01/28/19 01/29/19 Unknown valacyclovir 500 mg PO QAM 01/28/19 01/29/19 Unknown Past Medical History Medical History Acid reflux occasional breakthrough Aortic aneurysm Aortic root mildly dilated at 4.0cm. Proximal ascending aorta moderately dilated at 4.6cm: per 02/2018. Plan for repeat ECHO 01/2019 for surveillance. CAD (coronary artery disease) CABG X 1- PALOMINO-LAD (2013) Chronic kidney disease stage III Degenerative disc disease Diabetes IDDM Diastolic heart failure 2013 (subsequently had cardiac cath/blockage and CABG x 1) Hiatal hernia History of blood clots 2015 - LLE (s/p flight) ? superficial. Per patient, did not require long-term anticoagulation/no issues since History of skin cancer s/p resection Hyperlipidemia Hypertension Hypothyroidism Obesity Osteoarthritis Sleep apnea CPAP + 1L O2 HS UTI (urinary tract infection) recurrent- on abx; urology monitoring Exercise / Class Metabolic Activity III < 4 Walking/Shop/Light housework Past Family History Family History Aunt Family history of diabetes mellitus Past Surgical History Surgical History History of appendectomy History of cardiac cath 1999= NO STENTS 2013= NO STENTS, SUBSEQUENT CABG X 1 2014= NO STENTS History of cataract surgery R&L History of colonoscopy History of endoscopy History of eye surgery LASIK - LEFT History of heart bypass surgery CABG X 1 (2013) History of laparoscopic cholecystectomy History of left shoulder replacement History of ovarian cystectomy LEFT History of surgery PLASTIC - "NECK LIFT" History of total left knee replacement History of varicose vein ligation and stripping B/L LE Past Anesthesia History No Family Hx of Anesthesia Complications and Other Per patient, she states 15+ years ago, there was issue with anesthesia emergence but patient does not know further details. She states she has had subsequent surgery without issue. Subsequent cystoscopy, bladder biopsy, uretheral biopsy: 09/27/17: LMA#4 at [facility]. No major apparent complications per anesthesia progress note. History of PONV History of PONV and Hx of Motion Sickness Social History Smoking Status: Never smoker Do You Dip or Chew Tobacco: No Hx Alcohol Use: No substance use type: does not use Review of Systems Occasional reflux. Patient denies chest pain, shortness of breath, cough, wheezing, palpitations. Physical Exam Vital Signs VITALS BP 114/69 P 61 TEMP 97.8 SP02 98%RA RESP 18 PHYSICAL Full neck and c-spine range of motion. Full TMJ range of motion. TMD 3.5 finger breaths Mallampati Score 2 Dentition: intact, lower front right side implant, cap on sides, upper front veneers Lungs: clear throughout to auscultation Cardiac: regular rate and rhythm, no murmurs noted Spine: normal Carotid arteries: negative bruit Extremities: no edema Short neck Testing Electrocardiogram Date: 12/04/18 Findings: + NSR @ (62) Echocardiogram Date: 03/04/18 LVEF 55-59%. Mild MR. Aortic root mildly dilated at 4.0cm. Proximal ascending aorta moderately dilated at 4.6cm. No RWMA. Grade I DD. Stress Test Date: 03/20/16 Type: nuclear (Lexiscan) Myocardial perfusion imaging is "normal." LVEF >70%. 82% MPHR. Cardiac Catheterization Date: 06/01/14 30% ostial left main lesion. Coronary arteries with diffuse minor irregularities. PALOMINO to LAD graft atretic. Medical management recommended.
--- NOTE | 2019-02-03 11:48 | XRay Report ---
XR chest Pre-admission PA/Lat CLINICAL HISTORY: PAT preoperative evaluation COMPARISON STUDY: No previous studies for comparison. FINDINGS: Mild cardiomegaly. Prior median sternotomy. Diaphragms are smooth. Lungs are clear. IMPRESSION: No acute process. The above report was generated using voice recognition software. It may contain grammatical, syntax or spelling errors. Electronically signed by: Antoine Mckeon M.D. 02/03/2019 11:47 AM
[2019-02-03 15:17] LABS: Basophils # (auto) 0.04 K/uL (0-0.2); Basophils % (auto) 0.7 %; Eosinophils # (auto) 0.28 K/uL (0-0.5); Eosinophils % (auto) 4.6 %; Hematocrit (blood only) 41.7 % (37-47); Hemoglobin 13.9 g/dL (12.0-16.0); Lymphocytes # (auto) 1.72 K/uL (1.2-3.4); Lymphocytes % (auto) 28.2 %; Mean Corpuscular Hgb Conc 33.3 g/dL (32-36); Mean Platelet Volume 10.2 fL (7.4-10.4); Monocytes # (auto) 0.52 K/uL (0.11-0.59); Monocytes % (auto) 8.5 %; Neutrophils # (auto) 3.55 K/uL (1.4-6.5); Platelet Count 182 K/uL (130-400); RDW Coefficient of Variation 13.5 % (11.5-14.5); RDW Standard Deviation 48.7 fL (36.4-46.3); Red Blood Count 4.21 M/uL (4.2-5.4); White Blood Count 6.11 K/uL (4.8-10.8)
[2019-02-03 15:26] LABS: Estimated Average Glucose 140 mg/dl; Hemoglobin A1C 6.5 % (4.5-5.6)
[2019-02-03 15:28] LABS: Appearance Urine Clear (Clear); Bacteria Urine Automated 4+ (Negative); Bilirubin Urine Negative (Negative); Blood Urine Negative (Negative); Cast Urine Automated 0 /lpf (0-5); Color Urine Yellow; Epithelial Cell Urine Auto >30 /lpf (0-5); Glucose Urine UA Negative (Negative); Ketones Urine Negative (Negative); Leukocyte Esterase Urine 1+ (Negative); Nitrite Urine Negative (Negative); Protein Urine Negative (Negative); RBC Urine Automated 0-4 /hpf (0-4); Specific Gravity Urine 1.014 (1.000-1.030); Urobilinogen Urine Negative (Negative); pH Urine 6.5 (4.5-7.5)
[2019-02-03 15:30] LABS: BUN Creatinine Ratio 16.1 (10-20); Calcium 10.1 mg/dl (8.5-10.1); Creatinine Clr Calc Pharmacy 42.7 ml/min; Est GFR (African American) 49.2; Est GFR (Non-African American) 42.5; Partial Thromboplastin Ratio 0.9; Partial Thromboplastin Time 25.1 Seconds (21.0-31.0); Potassium 4.8 mmol/L (3.5-5.1); Prothrombin Time 10.3 Seconds (9.0-12.0)
--- NOTE | 2019-02-04 15:51 | History and Physical Report ---
DATE OF ADMISSION: 02/26/2019 CHIEF COMPLAINT: Right knee pain. HISTORY OF PRESENT ILLNESS: This 73-year-old white female presents to the office with complaints of longstanding history of right knee pain. She previously underwent left knee total knee arthroplasty 03/07/2018 and has done very well with that. She elects to proceed with the same on the right. She has had right knee pain for over 3 years. She has had a right knee scoped in the past. Current pain is worse with weightbearing. It is affecting her ADLs. She denies any numbness or tingling. Frequent effusions. She has tried activity modification as well as oral pain medication and viscosupplementation without lasting improvement. She has also tried physical therapy without lasting relief. Preoperative imaging has been obtained. No catching or locking. No buckling. She elects to proceed with right total knee arthroplasty in hopes of alleviating her discomfort. PAST MEDICAL HISTORY: Significant for frequent chest pain, CAD, hypertension, elevated cholesterol, sleep apnea. Uses CPAP with 1 liter of oxygen, osteoarthritis, low back pain, GERD, history of hiatal hernia, obesity, history of squamous cell cancer, chronic stage III kidney insufficiency, hypothyroidism, insulin-dependent diabetes, history of borderline anemia with easy bruising and history of vertigo. PAST SURGICAL HISTORY: Total shoulder arthroplasty 08/2015, bilateral cataract surgery in 02/2016 and 12/2016, bilateral knee arthroscopy, ovarian cyst removal, open heart surgery 11/2013, cholecystectomy in 1994, festoon eye surgery 2012, ovarian cyst excision 1970, varicose vein stripping 1987, tonsillectomy in 1954, appendectomy 1953. ALLERGIES: KNOWN ALLERGY TO SULFA DRUGS, WHICH CAUSE HIVES AND respiratory symptoms. KNOWN ALLERGY TO CORTISONE causing a RED RASH. PENICILLIN CAUSED HIVES. She has taken Keflex and Ancef before without issue. FAMILY HISTORY: Noncontributory. SOCIAL HISTORY: The patient is retired. . Currently in a relationship. No tobacco use, rare ETOH use. CURRENT MEDICATIONS: Betamethasone topical cream b.i.d., biotin 5000 mcg daily, Centrum Silver daily, aspirin 81 mg b.i.d., fluocinonide 0.05% topical solution b.i.d., furosemide 20 mg daily, lansoprazole 30 mg p.o. daily, Lantus 22 units subQ at bedtime, Synthroid 125 mcg p.o. daily, lisinopril 10 mg p.o. daily, magnesium oxide 400 mg p.o. daily, meclizine 25 mg p.o. t.i.d. p.r.n., meloxicam 15 mg half tablet p.o. daily, Macrobid 100 mg p.o. daily, Nystatin 100,000 units oral suspension p.o. b.i.d., Prandin 0.5 mg oral tablet half tablet before lunch and dinner, probiotic 1 capsule daily, rosuvastatin 40 mg p.o. daily, triamcinolone 0.1% topical cream b.i.d., Trulicity pen 1.25 mL every 7 days, Tums p.r.n., Tylenol p.r.n., valacyclovir 500 mg p.o. daily, verapamil 240 mg p.o. q.a.m., Vitamin D3 2000 units daily. REVIEW OF SYSTEMS: A total of 10 systems are reviewed and are significant only for above stated conditions. PHYSICAL EXAMINATION: GENERAL: Well-developed, well-nourished elderly white female in no acute distress. Sitting in a chair. Alert and oriented. VITAL SIGNS: Height 163.5 cm, weight 91.1 kilograms, BMI of 34.0, temperature 36.6, BP 124/68, heart rate 64, O2 sat 96% on room air. SKIN: Warm and dry with good turgor. No rashes or lesions. No ecchymosis or erythema. HEENT: Normocephalic, atraumatic. Eyes PERRLA, EOMI. Nares patent bilaterally without turbinate enlargement. Oropharynx without erythema or exudate. No lesions noted. Uvula midline. Oral mucosa moist. Dental caps are noted. HEART: RRR, soft systolic ejection murmur noted. No gallops or rubs. LUNGS: Clear to auscultation bilaterally. No crackles, rhonchi or wheezing. Good air movement. ABDOMEN: Mildly obese. Bowel sounds present x4, soft, nontender. No organomegaly. No masses. MUSCULOSKELETAL: Right knee has no intra-articular effusion. Nearly full terminal extension. She lacks approximately 5 degrees. Flexion to greater than 90 degrees. Strength is 5/5 with fair quad tone. There is focal discomfort with palpation over the medial and lateral joint lines. Stable collateral ligaments. No defect in the patellar tendon or quadriceps tendon. Ambulatory with a slightly antalgic gait. NEUROLOGIC: Cranial nerves II through XII are intact. Gross sensation is intact across the lower extremities by soft touch. Peripheral pulses are 2+. DATA: Radiographic imaging previously obtained shows tricompartmental osteoarthritis with chondrocalcinosis. Periarticular osteophytes and subchondral sclerosis were also present. IMPRESSION: Right knee end-stage degenerative joint disease. PLAN: Postoperative prescriptions for Percocet and Coumadin will be provided at discharge from the hospital. Anticipate discharge to home with home health services. She has an appointment to see her PCP, Dr. Bravo for medical clearance. She has already seen Dr. 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 Preoperative lab work and chest x-ray have been ordered. She already had an EKG. She already has a walker. TXA will be used topically due to her previous heart surgery.
[2019-02-26] MEDS ORDERED: LR 500ML BOLUS, THEN 15ML/HR IV SCH (06:00)
[2019-02-26] MEDS ORDERED: TRANEXAMIC ACID 1,000 MG x 1 **For Topical Use TOP SCH (06:00)
[2019-02-26] MEDS ORDERED: ROPIVACAINE 0.5% HCL/PF 150 MG, BUPIVACAINE 0.5% MPF 30 ML, EPINEPHrine 0.15 MG, Ketoro... INFIL SCH (06:00)
[2019-02-26] MEDS ORDERED: LR 60ML/HR IV SCH (06:00)
[2019-02-26] MEDS ORDERED: CEFAZOLIN 2000MG 2,000 MG/15 ML SYR IV SCH (06:00)
[2019-02-26] MEDS ORDERED: ROPIVACAINE 0.5% 5 MG/ML 30 ML VIAL ONE (06:17)
[2019-02-26] MEDS ORDERED: BUPIVACAINE 0.5 % 5 MG/1 ML PF 10ML VIAL ONE (06:17)
[2019-02-26] MEDS ORDERED: EPINEPHrine INJ 1 MG/ML AMP ONE (06:18)
--- NOTE | 2019-02-26 06:34 | History & Physical Bridge Note ---
Date of Service February 26, 2019 History & Physical Bridge Note I have examined the patient, reviewed the History & Physical and in the interval since the performance of the History & Physical I have noted the following changes of clinical significance: consent verified.no changes noted
[2019-02-26] MEDS ORDERED: ORTHO JOINT ANESTHETIC ONE (06:37)
[2019-02-26] MEDS ORDERED: fentaNYL citrate 100 MCG/2 ML VIAL ONE (06:40)
[2019-02-26] MEDS ORDERED: MIDAZOLAM HCL 1 MG/ML 2ML VIAL ONE (06:40)
[2019-02-26] MEDS ORDERED: PROPOFOL IV EMULSION 10 MG/ML 20 ML VIAL IV ONE (06:40)
[2019-02-26] MEDS ORDERED: ATROPINE SULFATE 0.1 MG/ML 10ML SYR IV PRN (07:13)
[2019-02-26] MEDS ORDERED: PROMETHAZINE HCL 12.5 MG in SODIUM CHLORIDE 0.9% 50 ML IV PRN (07:13)
[2019-02-26] MEDS ORDERED: ONDANSETRON INJ 2 MG/ML 2 ML VIAL IV PRN ×2 (07:13→10:06)
[2019-02-26] MEDS ORDERED: fentaNYL citrate 100 MCG/2 ML VIAL IV PRN (07:13)
[2019-02-26] MEDS ORDERED: LABETALOL HCL IV 5 MG/ML 20ML IV PRN (07:13)
[2019-02-26] MEDS ORDERED: ePHEDrine sulfate 50 MG/ML AMP IV PRN (07:13)
[2019-02-26] MEDS ORDERED: PHENYLEPHRINE 100MCG/ML 5ML SYR IV PRN (07:13)
[2019-02-26] MEDS ORDERED: HYDROmorphone INJ 1 MG/ML SYRINGE IV PRN (07:13)
[2019-02-26] MEDS ORDERED: SCOPOLAMINE 1.5 MG TDSY ONE (07:14)
[2019-02-26] MEDS ORDERED: ePHEDrine sulfate 50 MG/ML SYR ONE (07:17)
[2019-02-26] MEDS ORDERED: ONDANSETRON INJ 2 MG/ML 2 ML VIAL ONE (07:36)
--- NOTE | 2019-02-26 08:30 | Post Operative Brief Note ---
Immediate Post Op Note v1 Date of Surgery February 26, 2019 Pre & Post Diagnosis Operation Date: 02/26/19 07:00 Pre-Op Diagnosis: Right Knee Degenerative Joint Disease Post-Op Diagnosis: Right Knee Degenerative Joint Disease Procedure Operation Date: 02/26/19 07:00 Actual Procedures p Right Total Knee Arthroplasty(Right) - Chevy An MD Surgeon Chevy An MD Retail Field Representative brittanie/timoteo Estimated Blood Loss 125 Findings Consistent with Post-Op Diagnosis
--- NOTE | 2019-02-26 08:41 | Operative Report ---
Post Operative Report Pre & Post Diagnosis Operation Date: 02/26/19 07:00 Pre-Op Diagnosis: Right Knee Degenerative Joint Disease Post-Op Diagnosis: Right Knee Degenerative Joint Disease Procedure Operation Date: 02/26/19 07:00 Actual Procedures p Right Total Knee Arthroplasty(Right) - Chevy An MD Surgeon JEANETTE An MD Certified Alcohol Counselor brittanie/timoteo Estimated Blood Loss 125 Findings Consistent with Post-Op Diagnosis Specimens see operative report Drains none Complications none Disposition Accompanied Patient To Recovery: Yes Disposition: Recovery Room Indications This 73-year-old white female presented to the office with complaints of intractable right knee pain. She previously underwent left total knee arthroplasty and has done well with that. She elects to proceed with the same on the right. She had tried conservative care measures including activity modification, physical therapy, and injection therapy, without lasting improvement. Preoperative imaging was obtained. Description of Procedure Patient was administered a spinal anesthetic and then taken to the operating room where she was given sedation. She was prepped and draped in the usual sterile fashion. Please see Dr. An's operative report for specifics of the procedure. I was present for the entire case from initial patient positioning through final wound closure. Assistance was provided in tissue retraction, hemostasis, trial implant placement, final implant placement, and final wound closure. Patient was taken to the recovery room in satisfactory condition. I attest to the content of the Intraoperative Record and any orders documented therein. Any exceptions are noted below.
--- NOTE | 2019-02-26 08:45 | Operative Report ---
Post Operative Report Pre & Post Diagnosis Operation Date: 02/26/19 07:00 Pre-Op Diagnosis: Right Knee Degenerative Joint Disease Post-Op Diagnosis: Right Knee Degenerative Joint Disease Procedure Operation Date: 02/26/19 07:00 Actual Procedures p Right Total Knee Arthroplasty(Right) - Chevy An MD Surgeon Chevy An MD Mechanical Integrity Engineer brittanie/timoteo Estimated Blood Loss 125 Findings Consistent with Post-Op Diagnosis Specimens as per op notes Complications none Disposition Accompanied Patient To Recovery: Yes Disposition: Recovery Room Description of Procedure Supine, standard prep and drape, tourniquet control, timeout for patient safety Right Total Knee Arthroplasty Please see Dr. An's procedure notes for specific details I was present throughout the case, assisted for wound closure, and transfer the patient to PACU in stable condition. I attest to the content of the Intraoperative Record and any orders documented therein. Any exceptions are noted below.
--- NOTE | 2019-02-26 09:11 | Operative Report ---
DATE OF OPERATION: 02/26/2019 SURGEON: Chevy An MD BANK SECRECY ACT OFFICER: Nathan. SECOND BANK SECRECY ACT OFFICER: Quincy Bruno PA-C. PREOPERATIVE DIAGNOSIS: Osteoarthritis, right knee. POSTOPERATIVE DIAGNOSIS: Osteoarthritis, right knee. OPERATION PERFORMED: Cemented right total knee replacement. SUMMARY OF IMPLANTS: Size 2.5 posterior cruciate substituting femur, size 2.5 mobile bearing tray, insert size 2.5 x 10 mm posterior cruciate substituting oval dome 3 peg patella size 38, 2 bags of Palacos G cement. ESTIMATED BLOOD LOSS: 125 mL. CRYSTALLOID: Per anesthesia. PERIOPERATIVE SITUATION: Medically cleared female with intractable knee pain with x-rays revealing end-stage disease with marked chondrocalcinosis. She has failed conservative management. She had the other side done and now wants this side done. She understands the risks and consequences, see consent. DESCRIPTION OF PROCEDURE: The patient was identified, site verified, consent verified. Antibiotics confirmed as being given. Right lower extremity was prepped and draped in usual routine fashion. Tourniquet inflated to 300 mmHg after exsanguination of limb with a rubber Esmarch bandage for a total of 47 minutes. Midline exposure was utilized. Parapatellar arthrotomy performed. Synovectomy completed. There was a large amount of chondrocalcinosis grade 4 changes in the medial compartment and the trochlea. The patella was everted. The knee was then flexed. The menisci resected. Distal femur was then entered and a 12 mm resection made off the distal femur, 4 mm resection made at the proximal tibia. The extension gap was excellent. The tibia was sized to a 2.5. The femur was sized to a 2.5 and anterior, posterior condylar and chamfer cuts made. A laminar engineering designer was then placed posterior capsule injected. The flexion gap was excellent. The box cut was then made and the size 2.5 fit well. The tibia was then broached and reamed to a size 2.5 and with trial spacer of 10 mm, there was excellent tracking of the patella, excellent mid range and full extension and full flexion stability of the knee. The patella was then everted. Resection made leaving 14 mm and a 38 trial button fit best. The seating holes made and the trial button tracked well. The knee was then injected with all of the Orthomix. All the implants were then removed. The TXA was then placed for 2 minutes. The wound was then irrigated with Betadine and Pulsavac and then the permanent cemented into position sequentially tibia, femur, and patella. After 12 minutes, the tourniquet deflated. Bleeding points controlled with electrocautery. The wound was irrigated one final time. Permanent liner seated. The knee reduced and then closed with #2 Vicryl for the capsule layer, 2-0 Vicryl for subcutaneous layer and stainless steel clips for skin. Appropriate dressing applied. Pathology pending on bone. Deep venous thrombosis prophylaxis per protocol. I attest to the content of the Intraoperative Record and any orders documented therein. Any exception s are noted below.
--- NOTE | 2019-02-26 09:34 | XRay Report ---
XR knee RT 2V routine HISTORY: 73 years-old Female Surgical Post Op right knee total joint arthroplasty. History of degene rative joint disease. COMPARISON: Right knee radiographs 02/03/2019 TECHNIQUE: 2 views of the right knee FINDINGS: Right knee total joint arthroplasty and patella resurfacing. Anterior midline skin mariano are noted along with expected postsurgical soft tissue swelling and deep tissue air with surgical drainage cath eter. Alignment is satisfactory. No acute fracture or retained foreign body. IMPRESSION: Right knee total joint arthroplasty and patella resurfacing demonstrates satisfactory ali gnment. The above report was generated using voice recognition software. It may contain grammatical, syntax o r spelling errors. Electronically signed by: Gregory Trujillo M.D. 02/26/2019 9:33 AM
--- NOTE | 2019-02-26 09:37 | Anesthesiology Progress Note ---
Date of Service February 26, 2019 Anesthesia Post Procedure Vital Signs Vital Signs: Temp Pulse Pulse Resp BP Pulse Ox 02/26/19 09:30 36.5 C 59 L 16 132/62 100 02/26/19 09:20 56 L 15 125/49 L 100 02/26/19 09:10 56 L 16 132/63 100 02/26/19 09:00 55 L 12 128/70 100 02/26/19 08:50 52 L 15 139/58 L 100 02/26/19 08:40 36.6 C 59 L 16 93/50 L 98 02/26/19 05:46 36.4 C L 73 18 143/63 H 97 Pain Intensity Right Knee: Pain Intensity: 0 Transfer of Care Handoff Completed per policy Notes Mental Status: alert / awake / arousable Patient Amnestic to Procedure: Yes Nausea / Vomiting: adequately controlled Pain: adequately controlled Airway Patency, RR, SpO2: stable & adequate BP & HR: stable & adequate Hydration State: stable & adequate Neuraxial Anesthesia: was administered and sensory block is resolving Anesthetic Complications: no major complications apparent and Pt Satisfied with anesthetic care
[2019-02-26] MEDS ORDERED: MAGNESIUM HYDROXIDE SUSP 30 ML UDC PO PRN (10:06)
[2019-02-26] MEDS ORDERED: HYDROmorphone INJ 0.5 MG/0.5 ML SYR IV PRN (10:06)
[2019-02-26] MEDS ORDERED: ALUMINUM/MAGNESIUM SUSP 30 ML UDC PO PRN (10:06)
[2019-02-26] MEDS ORDERED: CALCIUM CARBONATE 500 MG CHEWABLE TAB PO PRN (10:06)
[2019-02-26] MEDS ORDERED: bisacodyL 10 MG SUPP PR PRN (10:06)
[2019-02-26] MEDS ORDERED: DiphenhydrAMINE HCL 50 MG/ML VIAL IV PRN (10:06)
[2019-02-26] MEDS ORDERED: METOCLOPRAMIDE HCL INJ 5 MG/ML 2 ML VIAL IV PRN (10:06)
[2019-02-26] MEDS ORDERED: NALOXONE HCL 0.4 MG/1 ML VIAL/CARP IV PRN (10:06)
[2019-02-26] MEDS ORDERED: ARTIFICIAL TEARS OP PRN (10:30)
[2019-02-26] MEDS ORDERED: GLUCOSE 40% GEL 15 GM TUBE PO PRN (10:45)
[2019-02-26] MEDS ORDERED: CARBOHYDRATES FOR HYPOGLYCEMIA PO PRN (10:45)
[2019-02-26] MEDS ORDERED: DEXTROSE 50% 50 ML SYRINGE IV PRN (10:45)
[2019-02-26] MEDS ORDERED: GLUCAGON FOR INJ 1 MG VIAL IM PRN (10:45)
[2019-02-26] MEDS ORDERED: GLUCOSE 10 TABS/TUBE PO PRN (10:45)
[2019-02-26] MEDS: ASPIRIN 81 MG ECTAB PO SCH ×2 (12:09→21:18)
[2019-02-26] MEDS: FUROSEMIDE 20 MG TAB PO SCH (12:09)
[2019-02-26] MEDS: DOCUSATE SODIUM 100 MG CAP PO SCH ×2 (12:09→21:17)
[2019-02-26] MEDS: SODIUM CHLORIDE 0.9% 1000ML 1,000 ML IV SCH ×2 (12:10→13:30)
[2019-02-26] MEDS: KETOROLAC TROMETHAMINE 15 MG/ML VIAL IV SCH ×3 (12:10→21:58)
[2019-02-26] MEDS: INSULIN ASPART 100 UNITS/ML 3 ML PEN SC SCH ×3 (12:15→21:54)
[2019-02-26] MEDS: ACETAMINOPHEN 500 MG TAB PO SCH ×2 (13:24→21:57)
[2019-02-26] MEDS ORDERED: ORTHO WARFARIN NOMOGRAM SCH (14:00)
[2019-02-26] MEDS: CEFAZOLIN 2000MG 2,000 MG/15 ML SYR IV SCH ×2 (14:40→21:58)
[2019-02-26] MEDS ORDERED: WARFARIN SOD 5 MG TAB PO SCH (16:00)
--- NOTE | 2019-02-26 17:41 | Progress Note ---
DATE: 02/26/2019 Postop check, status post right knee replacement. The patient denies any chest pain, shortness of breath, fever, chills, nausea, vomiting or headache. Vital signs are stable. She is afebrile. Wound dressing clean, dry and intact. Neurovascular check femoral sciatic nerve is normal. Postop x-rays look excellent. ASSESSMENT: Doing well. Needs to be encouraged. Needs to move. Needs to get out of bed. We will discontinue IV and project for discharge tomorrow.
[2019-02-26] MEDS: ASCORBIC ACID 500 MG TAB PO SCH (17:44)
[2019-02-26] MEDS: FERROUS GLUCONATE 324 MG TAB PO SCH (17:45)
[2019-02-26] MEDS ORDERED: NITROFURANTOIN MONOHYDRATE 100 MG CAP PO SCH (21:00)
[2019-02-26] MEDS ORDERED: ROSUVASTATIN CALCIUM 20 MG TAB PO SCH (21:00)
[2019-02-26] MEDS ORDERED: VERAPAMIL HCL 240 MG TABCR PO SCH (21:00)
[2019-02-26] MEDS ORDERED: SENNA 8.6 MG TAB PO SCH (21:00)
[2019-02-26] MEDS ORDERED: lisinopriL 10 MG TAB PO SCH (21:00)
[2019-02-26] MEDS: OXYCODONE HCL IR 5 MG TAB (IMMEDIATE RELEASE) PO PRN (21:26)
--- NOTE | 2019-02-26 22:03 | Discharge Summary ---
CHIEF COMPLAINT: Right knee pain. HISTORY OF PRESENT ILLNESS: Underwent elective right total knee replacement. Her hospital course has been uneventful. She continues to be motivated. Vital signs are stable. She is afebrile. She denies chest pain, shortness of breath, fever, chills, nausea, vomiting or headache. She is eating and drinking. Saline lock IV. PAST MEDICAL HISTORY: Remarkable for coronary artery disease, hypertension, elevated cholesterol, sleep apnea, uses CPAP, osteoarthritis, low back pain, history of hiatal hernia, history of squamous cell cancer, chronic stage III kidney, insufficiency, hypothyroidism, insulin-dependent diabetes, history of borderline anemia, easy bruising, and history of vertigo. PAST SURGICAL HISTORY: Previous surgeries include total shoulder replacement, cataract surgery, knee arthroscopies, ovarian cyst removal, open heart surgery, cholecystectomy, eye surgery, ovarian cyst excision of varicose vein stripping, tonsillectomy, appendectomy and left knee replacement. ALLERGIES: SULFA WHICH CAUSES HIVES. ALLERGY TO CORTISONE, CAUSING A RED RASH. PENICILLIN CAUSED HIVES. She takes Keflex and Ancef without issue. FAMILY HISTORY: Noncontributory. SOCIAL HISTORY: Reveals that she is retired, , currently in a relationship. No tobacco or alcohol use. PREADMISSION MEDICATIONS: Include betamethasone topical cream, Biotin, Centrum Silver, fluocinonide, furosemide, lansoprazole, Lantus, Synthroid, lisinopril, magnesium oxide, meclizine, meloxicam, Macrobid, nystatin, Prandin, rosuvastatin, triamcinolone cream, Trulicity p.r.n., Tums p.r.n., Tylenol, valacyclovir 500 mg daily, verapamil 240 mg q.a.m., vitamin D. She will be on Coumadin, keep INR 1.8-2.2. Will discontinue any anti-inflammatories. P.r.n. use of pain medication prescription as noted. REVIEW OF SYSTEMS: Reveals no chest pain, shortness of breath, fever, chills, nausea, vomiting or headache. HOSPITAL COURSE: Today, it has been uneventful ,continues to be motivated, needs to be active and get up and move around to minimize all of her risks. She states she understands, but definitely is not over aggressive in her behavior. She has been encouraged to move. Potential discharge tomorrow. Glucoses have been fine. Eating, drinking, will saline lock IV. MTDD
[2019-02-27] MEDS: KETOROLAC TROMETHAMINE 15 MG/ML VIAL IV SCH (05:23)
[2019-02-27] MEDS: ACETAMINOPHEN 500 MG TAB PO SCH (05:23)
[2019-02-27] MEDS ORDERED: LEVOTHYROXINE SODIUM 125 MCG TABLET PO SCH (06:30)
[2019-02-27 06:45] LABS: Hematocrit (blood only) 32.9 % (37-47); Hemoglobin 11.3 g/dL (12.0-16.0); Mean Corpuscular Hemoglobin 33.3 pg (25-34); Mean Corpuscular Hgb Conc 34.3 g/dL (32-36); Mean Corpuscular Volume 97.1 fL (80-100); Mean Platelet Volume 9.2 fL (7.4-10.4); Platelet Count 143 K/uL (130-400); RDW Coefficient of Variation 13.5 % (11.5-14.5); RDW Standard Deviation 47.3 fL (36.4-46.3); Red Blood Count 3.39 M/uL (4.2-5.4); White Blood Count 7.52 K/uL (4.8-10.8)
[2019-02-27 07:05] LABS: INR 1.1 (0.9-1.1); Prothrombin Time 11.2 Seconds (9.0-12.0)
[2019-02-27 07:17] LABS: BUN Creatinine Ratio 12.6 (10-20); Calcium 8.4 mg/dl (8.5-10.1); Est GFR (African American) 41.8; Potassium 4.7 mmol/L (3.5-5.1)
--- NOTE | 2019-02-27 07:17 | Progress Note ---
DATE: 02/27/2019 SUBJECTIVE: Postop day #1 status post right total knee replacement. The patient is doing well, has been up out of bed appropriately. She is doing well. She denies chest pain, shortness of breath, fever, chills, nausea, vomiting or headache. She notes the scopolamine patch has helped. OBJECTIVE: Vital signs are stable. She is afebrile. Neurovascular check femoral sciatic nerve is normal. Wound dressing is clean, dry and intact. Ankle pumps are intact. Calves are nontender. Can do an assisted straight leg raise. ASSESSMENT: Overall, doing well, continue to be motivated to do active thigh extension. Straight leg raising, appropriate bending, do not over bend beyond 90 degrees. Discharge to home today. Coumadin dose per nomogram. Keep INR 1.8-2.2. Glucoses have been well managed. Advised her regarding scopolamine patch and how to manage that. Take it off later tonight. Wash her hands. Keep things out of her eyes.
[2019-02-27] MEDS: FUROSEMIDE 20 MG TAB PO SCH (07:36)
[2019-02-27] MEDS: INSULIN ASPART 100 UNITS/ML 3 ML PEN SC SCH ×2 (07:36→11:50)
[2019-02-27] MEDS: ASCORBIC ACID 500 MG TAB PO SCH (07:37)
[2019-02-27] MEDS: ASPIRIN 81 MG ECTAB PO SCH (07:37)
[2019-02-27] MEDS: FERROUS GLUCONATE 324 MG TAB PO SCH (07:37)
[2019-02-27] MEDS: DOCUSATE SODIUM 100 MG CAP PO SCH (07:38)
[2019-02-27] MEDS: OXYCODONE HCL IR 5 MG TAB (IMMEDIATE RELEASE) PO PRN ×2 (07:39→11:50)
--- NOTE | 2019-02-27 08:20 | Anesthesiology Progress Note ---
Date of Service February 27, 2019 Anesthesia Post Procedure Vital Signs Vital Signs: Temp Pulse Pulse Pulse Resp BP Pulse Ox 02/27/19 06:28 36.8 C 62 18 108/62 94 02/27/19 04:02 36.7 C 66 18 112/64 95 02/27/19 00:08 36.9 C 64 18 115/64 95 02/26/19 19:44 36.7 C 63 18 115/61 95 02/26/19 15:47 36.4 C L 54 L 18 119/67 96 02/26/19 13:11 36.2 C L 70 18 139/67 99 02/26/19 11:51 77 18 109/73 92 02/26/19 11:05 36.3 C L 61 18 123/72 95 02/26/19 10:33 59 L 18 128/73 02/26/19 09:40 36.5 C 58 L 15 126/84 100 02/26/19 09:30 36.5 C 59 L 16 132/62 100 02/26/19 09:20 56 L 15 125/49 L 100 02/26/19 09:10 56 L 16 132/63 100 02/26/19 09:00 55 L 12 128/70 100 02/26/19 08:50 52 L 15 139/58 L 100 02/26/19 08:40 36.6 C 59 L 16 93/50 L 98 Pain Intensity Right Knee: Pain Intensity: 4 Notes Mental Status: alert / awake / arousable and participated in evaluation Patient Amnestic to Procedure: Yes Nausea / Vomiting: adequately controlled Pain: adequately controlled Airway Patency, RR, SpO2: stable & adequate BP & HR: stable & adequate Hydration State: stable & adequate Neuraxial Anesthesia: was administered and sensory block resolved Anesthetic Complications: no major complications apparent Notes: She reported scopolamine patch worked great, no PONV.
[2019-02-27] MEDS ORDERED: PANTOprazole 40 MG TAB PO SCH (09:00)
[2019-02-27] MEDS ORDERED: VALACYCLOVIR HCL 500 MG TABLET PO SCH (09:00)
[2019-02-27] MEDS ORDERED: MULTIVITAMIN TAB PO SCH (09:00)
[2019-02-27] MEDS ORDERED: MAGNESIUM OXIDE 400 MG TAB PO SCH (09:00)
--- NOTE | 2019-02-27 10:04 | Orthopedic Progress Note ---
Date of Service February 27, 2019 Assessment & Plan (1) Status post total knee replacement, right: Dressings were replaced by me. She will leave these in place until Sunday and then change as needed. OT today before discharge. Follow-up with me in 2 weeks for staple removal in the office. Appointment has already been made. Continue with range of motion and daily walking. Maximum knee flexion of 90 degrees. Ice and elevate frequently to reduce pain and swelling Coumadin 4 mg daily through the and have her blood rechecked on Sunday with home health Resume all of her usual medications other than meloxicam. Call the office with any other concerns Written discharge instructions have been provided. Subjective Patient is seen in her room this morning. Her significant other is present. She states she is doing well this morning. She feels she has less pain than when she had her other knee done. No numbness or tingling. She has already done physical therapy this morning. She is waiting for occupational therapy. No chest pain, shortness of breath, nausea, vomiting, numbness, or tingling. She feels ready for discharge. Review of Systems Review of Systems: Unchanged from preop Physical Exam Physical Exam: General: Well-developed, well-nourished, elderly white female, in no acute distress. Laying in bed. Alert and oriented. Conversive. Skin: Bulky postop dressing is intact on the right leg. Upon removal, she has expected postoperative edema at the knee. No ecchymosis. No active drainage. Moderate dry drainage on her dressings. Anna are intact. Wound edges well approximated. No warmth. Musculoskeletal: Patient has intact motor function to her ankles and toes. She is able to perform a straight leg raise with some assistance. Reasonably good knee flexion. Neurologic: Gross sensation is intact across all aspects of the right leg by soft touch. Peripheral pulses are 2+. Results & Data Vital Signs (Past 12 Hours) Vital Signs Temp Pulse Pulse Pulse Resp BP Pulse Ox 02/27/19 09:47 36.8 C 70 62 54 L 18 108/62 94 02/27/19 06:28 36.8 C 62 18 108/62 94 02/27/19 04:02 36.7 C 66 18 112/64 95 02/27/19 00:08 36.9 C 64 18 115/64 95 Laboratory Results H&H 11.3 and 32.9 Glucose 144. INR 1.1.
[2019-02-27] MEDS ORDERED: WARFARIN SOD 5 MG TAB PO ONE (16:00)
== END 2019-02-27 12:31 | disposition home health service (06) | DRG 470 ==
LOC: ASU 04:51 → 3E 08:50

== ENCOUNTER 2019-03-11 09:25 | Inpatient (IN) ==
[2019-03-11] MEDS ORDERED: SODIUM CHLORIDE 0.9% 500 ML IV SCH (09:45)
[2019-03-11 09:51] LABS: Basophils # (auto) 0.05 K/uL (0-0.2); Basophils % (auto) 0.4 %; Eosinophils # (auto) 0.09 K/uL (0-0.5); Eosinophils % (auto) 0.8 %; Hematocrit (blood only) 27.1 % (37-47); Immature Granulocytes # (auto) 0.03 K/uL (0.00-0.02); Immature Granulocytes % (auto) 0.3 %; Lymphocytes # (auto) 1.84 K/uL (1.2-3.4); Lymphocytes % (auto) 16.5 %; Mean Corpuscular Hemoglobin 33.2 pg (25-34); Mean Corpuscular Hgb Conc 33.2 g/dL (32-36); Mean Platelet Volume 8.3 fL (7.4-10.4); Monocytes # (auto) 0.49 K/uL (0.11-0.59); Monocytes % (auto) 4.4 %; Neutrophils # (auto) 8.64 K/uL (1.4-6.5); Neutrophils % (auto) 77.6 %; Platelet Count 357 K/uL (130-400); RDW Coefficient of Variation 14.6 % (11.5-14.5); RDW Standard Deviation 52.7 fL (36.4-46.3); Red Blood Count 2.71 M/uL (4.2-5.4); White Blood Count 11.14 K/uL (4.8-10.8)
[2019-03-11 10:00] LABS: Partial Thromboplastin Ratio 1.3; Partial Thromboplastin Time 34.7 Seconds (21.0-31.0); Prothrombin Time 28.2 Seconds (9.0-12.0)
[2019-03-11 10:05] LABS: Alanine Aminotransferase 24 U/L (12-78); Albumin Level 2.8 gm/dl (3.4-5.0); Aspartate Aminotransferase 25 U/L (15-37); BUN Creatinine Ratio 27.1 (10-20); Blood Urea Nitrogen 36 mg/dl (7-18); Carbon Dioxide 23 mmol/L (21-32); Chloride 109 mmol/L (98-107); Creatinine Clr Calc Pharmacy 39.8 ml/min; Est GFR (African American) 45.6; Est GFR (Non-African American) 39.4; Glucose 198 mg/dl (70-99); Potassium 4.5 mmol/L (3.5-5.1); Sodium 138 mmol/L (136-145)
[2019-03-11 10:09] LABS: Albumin Globulin Ratio 0.9 (0.9-2); Alkaline Phosphatase 67 U/L (45-117); Bilirubin,Total 0.4 mg/dl (0.2-1); Total Protein 5.8 gm/dl (6.4-8.2); Troponin I < 0.015 ng/ml (0-0.045)
[2019-03-11] MEDS ORDERED: SODIUM CHLORIDE 0.9% 250 ML IV PRN (10:28)
[2019-03-11] MEDS ORDERED: PANTOprazole 80 MG in DEXTROSE 5% 100 ML IV SCH (10:45)
[2019-03-11] MEDS: PANTOprazole 40 MG in DEXTROSE 5% 100 ML IV SCH ×3 (10:56→20:56)
[2019-03-11] MEDS ORDERED: PHYTONADIONE 5 MG in SODIUM CHLORIDE 0.9% 50 ML IV SCH (11:45)
--- NOTE | 2019-03-11 11:47 | CT Scan Report ---
CT head/brain wo con CT DOSE: 638.56 mGycm HISTORY: Mental status change LATIF on coumadin, syncope TECHNIQUE: Multiaxial CT images of the head were performed without the use of intravenous contrast. A dose lowering technique was utilized adhering to the principles of ALARA. Comparison: None. Findings: The paranasal sinuses and mastoid air cells are clear. The calvarium and skull base are int act. The ventricles and sulci are within normal limits. There is no mass, hematoma, midline shift, or acute infarct. Impression: No acute intracranial abnormality. The above report was generated using voice recognition software. It may contain grammatical, syntax or spelling errors. Electronically signed by: Antoine Mckeon M.D. 03/11/2019 11:46 AM
--- NOTE | 2019-03-11 11:56 | Gastrointestinal Consultation ---
Date of Consultation March 11, 2019 Assessment & Plan (1) Status post total knee replacement, right: (2) Syncope: (3) GI (gastrointestinal bleed): Pt is a 73 y/o female who presented w syncope, lower abd cramping, and bloody diarrhea. She recently had R TKR on 02/26, DC'd home on Coumadin for DVT prophylaxis and was also taking baby ASA. INR noted to be 3 on presentation. H/H 02/14 (baseline Hgb 11, 2 weeks ago). BUN elevated at 32. Likely GI bleeding in setting of anticoagulant and ASA use. - PPI bolus and gtt - Reverse INR - PRBC transfusion ordered by hospitalist team, monitor H/H closely - OK for CL diet tonight - Will monitor for now, if GI bleeding continues will consider endoscopic evaluations Supervising Physician Co-Signing Physician Notes I have personally seen and examined the patient with LJ Morelos. Her note reflects my exam and findings. I agree with her impression and plan. Follow H/H. Conservative management. Dax Hicks M.D. History of Present Illness Reason for Consultation: Rectal bleeding Requesting Physician: Dr. Marcel Hernandez Attending Physician: Dr. Dax Hicks History of Present Illness Pt is a 73 y/o female who is s/p R TKR on 02/26/19, DC'd home on Coumadin for DVT prophylaxis and also had been taking ASA 81mg daily. She presented to ED w c/o syncopal episode, lower crampy abd pain and bloody diarrhea starting last night 10P. Since 10p to 8:30a had at least 5 episodes of bloody diarrhea. She denies any n/v, fever, chills. Labs notable for anemia H/H 02/14. Baseline Hgb 11 2 weeks ago. PT/INR 28/3 (noted on Ortho's noted keep INR goal 1.8-2.2). BUN/Cr 36/1.3. Initial VS showed hypotension 85/42. Currently 105/50. Afebrile, HR WNL. Allergies Allergy/AdvReac Type Severity Reaction Status Date / Time Bactrim Allergy Severe HIVES, Verified 09/27/17 10:27 ITCHING, ANAPHYLAXIS Sulfa (Sulfonamide Allergy Severe "BACTRIM" Verified 03/11/19 10:38 Antibiotics) HIVES, ITCHING AND ANAPHYLAXIS sulfamethoxazole Allergy Severe HIVES, Verified 03/11/19 10:38 ITCHING, ANAPHYLAXIS trimethoprim Allergy Severe HIVES, Verified 03/11/19 10:38 ITCHING, ANAPHYLAXIS cat dander Allergy Intermediate AND DOGS - Verified 03/11/19 10:38 SNEEZING cortisone Allergy Intermediate HIVES Verified 03/11/19 10:38 Penicillins Allergy Intermediate HIVES Verified 03/11/19 10:38 Chlorine Allergy Intermediate ECZEMA Uncoded 03/11/19 10:38 Home Medications Home Medications Medication Instructions Recorded Confirmed Type biotin 2,500 mcg capsule 5,000 mcg PO QAM cap 01/03/19 03/11/19 History lansoprazole 30 mg capsule,delayed 30 mg PO QAM cap 01/03/19 03/11/19 History release levothyroxine 125 mcg tablet 125 mcg PO QAM tab 01/03/19 03/11/19 History lisinopril 10 mg tablet 10 mg PO HS tab 01/03/19 03/11/19 History magnesium 400 mg (as magnesium 400 mg PO QDL cap 01/03/19 03/11/19 History oxide) capsule repaglinide 1 mg tablet 1 mg PO TID PRN tab 01/03/19 03/11/19 History verapamil ER (SR) 240 mg 240 mg PO HS tab 01/03/19 03/11/19 History tablet,extended release Lantus U-100 Insulin 22 unit SUBCUT HS 01/28/19 03/11/19 History Refresh Optive Mateusz-3 (PF) 1 drp OPHTHALMIC (EYE) TID 01/28/19 03/11/19 History aspirin [Aspir-81] 81 mg PO DAILY 01/28/19 03/11/19 History cholecalciferol (vitamin D3) 400 unit PO QAM 01/28/19 03/11/19 History [Vitamin D3] furosemide 20 mg PO QAM 01/28/19 03/11/19 History rosuvastatin [Crestor] 40 mg PO HS 01/28/19 03/11/19 History valacyclovir 500 mg PO QAM 01/28/19 03/11/19 History nitrofurantoin 100 mg PO HS #30 cap 02/14/19 03/11/19 Rx monohydrate/macrocrystals 100 mg capsule Probiotic 3,000 mmu cells PO QDL 02/26/19 03/11/19 History acetaminophen [Tylenol Extra 500 mg PO Q4 PRN 02/26/19 03/11/19 History Strength] multivitamin 1 tab PO QAM 02/26/19 03/11/19 History dulaglutide [Trulicity] 1.5 mg SUBCUT WK 03/11/19 03/11/19 History oxycodone-acetaminophen [Percocet] 1 - 2 tab PO Q4H PRN 03/11/19 03/11/19 History warfarin 4 mg PO HS 03/11/19 03/11/19 History Patient History Medical History Recurrent UTI (Chronic) Sleep apnea (Chronic) CPAP + 1L O2 HS Diastolic heart failure (Chronic) 2013 (subsequently had cardiac cath/blockage and CABG x 1) Degenerative disc disease (Chronic) History of skin cancer (Chronic) s/p resection Acid reflux (Chronic) occasional breakthrough Hiatal hernia (Chronic) CAD (coronary artery disease) (Chronic) CABG X 1- PALOMINO-LAD (2013) Obesity (Chronic) Hypothyroidism (Chronic) Dyslipidemia (Chronic) Diabetes mellitus, type II (Chronic) Osteoarthritis (Chronic) HTN (hypertension) (Chronic) Stage III chronic kidney disease (Chronic) Aortic aneurysm (Chronic) Anemia (Chronic) History of blood clots 2015 - LLE (s/p flight) ? superficial. Per patient, did not require long-term anticoagulation/no issues since Surgical History History of heart bypass surgery (Chronic) CABG X 1 (2013) History of varicose vein ligation and stripping (Chronic) B/L LE History of colonoscopy (Chronic) History of endoscopy (Chronic) History of cardiac cath (Chronic) 1999= NO STENTS 2013= NO STENTS, SUBSEQUENT CABG X 1 2014= NO STENTS History of eye surgery (Chronic) LASIK - LEFT History of cataract surgery (Chronic) R&L Status post total knee replacement, right (Chronic) History of surgery PLASTIC - "NECK LIFT" Family History Aunt Family history of diabetes mellitus Social History Preferred Language: Austrian Communication Ability: Effective Swahili Teacher Required: No Beliefs That Will Affect Care: None Current Living Situation: Significant Other Other Information That Helps Us Care for You: No Feels Safe at Home: Yes Safety Concerns: Feels Safe At This Time Smoking Status: Never smoker Hx Alcohol Use: No Hx Substance Use: No Review of Systems Review of Systems: All systems reviewed & are unremarkable except as noted in HPI & below Physical Exam Constitutional: WD/WN, vitals as above well groomed, cooperative and comfortable Eyes: PERRL, conjunctivae normal, anicteric sclerae ENMT: external ear and nose normal, oropharynx normal Respiratory: normal respiratory effort, lungs clear to auscultation Cardiovascular: RRR, no murmur, no edema Gastrointestinal (Abdomen): Inspection/Auscultation: + hypoactive bowel sounds Percussion/Palpation: + abdomen tender (mild TTP LUQ) and abdomen soft Skin: + pallor Neurologic: Motor/Sensory: no asterixis Psychiatric: A+Ox3, euthymic affect Lymphatic: no lymphedema Results & Data Vital Signs (Past 12 Hours) Vital Signs Temp Pulse Pulse Resp BP BP Pulse Ox 03/11/19 11:08 67 22 105/50 L 97 03/11/19 10:30 69 23 105/46 L 96 03/11/19 10:22 69 19 110/45 L 96 03/11/19 10:20 72 20 95 03/11/19 10:14 79 20 85/46 L 98 03/11/19 10:00 82 22 03/11/19 09:44 36.6 C 85 20 110/57 L 95 03/11/19 09:32 83 17 110/57 L 95 03/11/19 09:31 94 H 18 (1) GI (gastrointestinal bleed) GI bleed type/associated pathology: unspecified gastrointestinal hemorrhage type Qualified Code(s): K92.2 - Gastrointestinal hemorrhage, unspecified (2) Syncope Syncope type: unspecified Qualified Code(s): R55 - Syncope and collapse
--- NOTE | 2019-03-11 12:02 | History & Physical Report ---
Date of Service March 11, 2019 Assessment & Plan (1) GI (gastrointestinal bleed): (2) Anemia: (3) Anticoagulated: Pt is 73 y/o F with PMH CAD s/p CABG x 1 in 2013, HTN, dyslipidemia, h/o diastolic dysfunction, insulin dependent DM II, thoracic aortic aneurysm, CKD III, hypothyroidism, TAE, recurrent UTI presented with c/o lower abdominal cramping and several episodes of bright red bloody diarrhea. Abdominal cramping relieved with BM's. Recent R TKA on 02/26/19 and was started on Coumadin for VTE prophylaxis. Pt also on aspirin 81 mg daily. Denies other NSAID use. In ER pt afebrile, initial pulse: 55, BP: 134/64. BP dropped to 85/46 up to 110/45. WBC: 11, H/H: 9.0/27. (Hgb: 11.3 post op on 02/27/10 and 13.9 pre-op on 02/03/19), Plt: 357, INR: 3.0, BUN: 36, Cr: 1.3 -In ER received 500ml NSS, Protonix bolus and drip -Transfuse 1 unit PRBC now -Reassess volume status after PRBC -Vitamin K 5mg IV -Hold Coumadin -Hold aspirin today -Monitor INR -Monitor H&H -NPO for now -Stool studies, C-diff pending -GI consult -CBC, BMP in am (4) Syncope: Syncopal episodes x 2 today. Episodes after standing. Family able to lower pt to floor. Denies hitting head. Probable secondary to symptomatic anemia, possible orthostatic hypotension. DDX: hypoglycemia Pt reports was told BSG was 198 by EMS this am. CT head negative Current BS Monitor (5) Status post total knee replacement, right: TKA on 02/26/19 On Coumadin for VTE prophylaxis. Right Knee without signs of infection -Hold Coumadin -Plan to hold oral oxycodone if still hypotensive (6) CAD (coronary artery disease): CAD s/p CABG x 1 in 2013 No CP or SOB -Hold aspirin today -Plan to resume aspirin tomorrow if no recurrent bleeding -Hold verapamil today with hypotension, plan to resume tomorrow with holding parameters -Hold statin today, plan to resume tomorrow (7) Diabetes mellitus, type II: A1c: 6.5 on 02/03/19 -Hold Prandin, Trulicity -Hold home insulin -Monitor BSGs -Lantus, Novolog sliding scale (8) HTN (hypertension): BPs on low side -Hold lisinopril, lasix for now -Hold verapamil today, plan to resume tomorrow with holding parameters (9) Stage III chronic kidney disease: Cr: 1.3. Baseline Cr: 1.2 -Monitor renal functions -Avoid nephrotoxic agents when possible (10) Recurrent UTI: H/O recurrent UTI. On nitrofurantoin prophylactic -Will hold nitrofurantoin for now pending c-diff (11) Sleep apnea: -CPAP with 1L oxygen HS (12) Hypothyroidism: -Continue levothyroxine (13) Acid reflux: -Hold oral PPI as currently on PPI IV DVT Prophylaxis -SCDs secondary to GI bleed Follows with Dr Bravo for routine care Pt was seen and care coordinated with Dr Hernandez. See addendum History of Present Illness Chief Complaint: Bloody diarrhea, syncope Primary Care Provider: Toan Bravo, Pt is 73 y/o F with PMH CAD s/p CABG x 1 in 2013, HTN, dyslipidemia, h/o diastolic dysfunction, insulin dependent DM II, thoracic aortic aneurysm, CKD III, hypothyroidism, TAE, recurrent UTI presented to ER with c/o bloody diarrhea and syncope. Pt with hx R TKA on 02/26/19 and was started on Coumadin for VTE prophylaxis. Last INR: 2.8 on 03/07/19. Pt states yesterday with bleeding gums and had epistaxis so did not take her evening dose of Coumadin. Pt also on aspirin 81 mg daily. Last night started with lower abdominal cramping and episode of bright red bloody diarrhea. Had 3 additional episodes of red bloody diarrhea this morning. Reports abdominal cramping resolves after having BM. Pt states this morning was standing to go to bathroom when had syncopal episode lasting several seconds. Family member was able to gently lower pt to floor at that time. Denies hitting head. Had another episode of lightheadedness and diaphoresis followed by syncope after getting off toilet this morning. Again family was there to safely lower pt to ground. Tried to measure BP however automatic cuff would not read. Did not check BSG but ate a mint in case she was hypoglycemic. EMS was summoned. Pt reports was told BSG was 198 by EMS. Denies ETOH use. Prior to surgery was on NSAIDs however denies use since surgery. Pt re ports constipation after surgery and was using Miralax for several days, hasn't used since last week. Reports frontal LATIF yesterday and today, however feels like has less LATIF today. Pt reports still with post op knee pain but denies any worsening pain. Denies fever/chills or noted wound discharge. Denies vision changes, neck pain, CP, SOB, orthopnea, palpitations, cough, sore throat, choking, otalgia, rhinorrhea, paresthesias, weakness, extremity weakness, increased extremity edema, rashes, urinary symptoms. H/O colonoscopy 2013: sigmoid diverticulosis H/O EGD 2009: multiple gastric polyps, hiatal hernia H/O Echo 02/17/19: EF: 55%, 4cm aortic root dilation, proximal ascending aorta 4.6 cm diameter. In ER pt given 500ml NSS, Protonix drip started. Allergies Allergy/AdvReac Type Severity Reaction Status Date / Time Bactrim Allergy Severe HIVES, Verified 09/27/17 10:27 ITCHING, ANAPHYLAXIS Sulfa (Sulfonamide Allergy Severe "BACTRIM" Verified 03/11/19 10:38 Antibiotics) HIVES, ITCHING AND ANAPHYLAXIS sulfamethoxazole Allergy Severe HIVES, Verified 03/11/19 10:38 ITCHING, ANAPHYLAXIS trimethoprim Allergy Severe HIVES, Verified 03/11/19 10:38 ITCHING, ANAPHYLAXIS cat dander Allergy Intermediate AND DOGS - Verified 03/11/19 10:38 SNEEZING cortisone Allergy Intermediate HIVES Verified 03/11/19 10:38 Penicillins Allergy Intermediate HIVES Verified 03/11/19 10:38 Chlorine Allergy Intermediate ECZEMA Uncoded 03/11/19 10:38 Home Medications Home Medications Medication Instructions Recorded Confirmed Type biotin 2,500 mcg capsule 5,000 mcg PO QAM cap 01/03/19 03/11/19 History lansoprazole 30 mg capsule,delayed 30 mg PO QAM cap 01/03/19 03/11/19 History release levothyroxine 125 mcg tablet 125 mcg PO QAM tab 01/03/19 03/11/19 History lisinopril 10 mg tablet 10 mg PO HS tab 01/03/19 03/11/19 History magnesium 400 mg (as magnesium 400 mg PO QDL cap 01/03/19 03/11/19 History oxide) capsule repaglinide 1 mg tablet 1 mg PO TID PRN tab 01/03/19 03/11/19 History verapamil ER (SR) 240 mg 240 mg PO HS tab 01/03/19 03/11/19 History tablet,extended release Lantus U-100 Insulin 22 unit SUBCUT HS 01/28/19 03/11/19 History Refresh Optive Mateusz-3 (PF) 1 drp OPHTHALMIC (EYE) TID 01/28/19 03/11/19 History aspirin [Aspir-81] 81 mg PO DAILY 01/28/19 03/11/19 History cholecalciferol (vitamin D3) 400 unit PO QAM 01/28/19 03/11/19 History [Vitamin D3] furosemide 20 mg PO QAM 01/28/19 03/11/19 History rosuvastatin [Crestor] 40 mg PO HS 01/28/19 03/11/19 History valacyclovir 500 mg PO QAM 01/28/19 03/11/19 History nitrofurantoin 100 mg PO HS #30 cap 02/14/19 03/11/19 Rx monohydrate/macrocrystals 100 mg capsule Probiotic 3,000 mmu cells PO QDL 02/26/19 03/11/19 History acetaminophen [Tylenol Extra 500 mg PO Q4 PRN 02/26/19 03/11/19 History Strength] multivitamin 1 tab PO QAM 02/26/19 03/11/19 History dulaglutide [Trulicity] 1.5 mg SUBCUT WK 03/11/19 03/11/19 History oxycodone-acetaminophen [Percocet] 1 - 2 tab PO Q4H PRN 03/11/19 03/11/19 History warfarin 4 mg PO HS 03/11/19 03/11/19 History Past Med/Surg History Medical History Recurrent UTI (Chronic) Sleep apnea (Chronic) CPAP + 1L O2 HS Diastolic heart failure (Chronic) 2013 (subsequently had cardiac cath/blockage and CABG x 1) Degenerative disc disease (Chronic) History of skin cancer (Chronic) s/p resection Acid reflux (Chronic) occasional breakthrough Hiatal hernia (Chronic) CAD (coronary artery disease) (Chronic) CABG X 1- PALOMINO-LAD (2013) Obesity (Chronic) Hypothyroidism (Chronic) Dyslipidemia (Chronic) Diabetes mellitus, type II (Chronic) Osteoarthritis (Chronic) HTN (hypertension) (Chronic) Stage III chronic kidney disease (Chronic) Aortic aneurysm (Chronic) Anemia (Chronic) History of blood clots 2015 - LLE (s/p flight) ? superficial. Per patient, did not require long-term anticoagulation/no issues since Surgical History History of heart bypass surgery (Chronic) CABG X 1 (2013) History of varicose vein ligation and stripping (Chronic) B/L LE History of colonoscopy (Chronic) History of endoscopy (Chronic) History of cardiac cath (Chronic) 1999= NO STENTS 2013= NO STENTS, SUBSEQUENT CABG X 1 2014= NO STENTS History of eye surgery (Chronic) LASIK - LEFT History of cataract surgery (Chronic) R&L Status post total knee replacement, right (Chronic) History of surgery PLASTIC - "NECK LIFT" Family History Aunt Family history of diabetes mellitus Social History Preferred Language: Hebrew Communication Ability: Effective Director Of Employer Services Required: No Beliefs That Will Affect Care: None Current Living Situation: Significant Other Other Information That Helps Us Care for You: No Feels Safe at Home: Yes Safety Concerns: Feels Safe At This Time Smoking Status: Never smoker Hx Alcohol Use: No Hx Substance Use: No Review of Systems Review of Systems: All systems reviewed & are unremarkable except as noted in HPI & below Physical Exam Physical Exam: General: no acute distress, obese Head: normocephalic, atraumatic Eyes: PERRL, EOM's intact, conjunctiva non-injected, anicteric ENT: normal inspection external ears, nose, mucous membranes dry Neck: supple, trachea midline Lungs: clear, no respiratory distress, no wheezing/rhonchi/rales CV: RRR, no murmur, no pretibial edema Abd: normal BS, soft, non-tender Ext: no calf tenderness; R knee with mariano in place without any erythema or edema, no discharge, mild tenderness to palpation anterior knee Neuro: A&O x 3, no focal deficits noted, normal affect Skin: warm, dry Results & Data Vital Signs (Past 12 Hours) Vital Signs Temp Pulse Pulse Resp BP BP Pulse Ox 03/11/19 11:08 67 22 105/50 L 97 03/11/19 10:30 69 23 105/46 L 96 03/11/19 10:22 69 19 110/45 L 96 03/11/19 10:20 72 20 95 03/11/19 10:14 79 20 85/46 L 98 03/11/19 10:00 82 22 03/11/19 09:44 36.6 C 85 20 110/57 L 95 03/11/19 09:32 83 17 110/57 L 95 03/11/19 09:31 94 H 18 Laboratory Results Short CBC 03/11/19 Range/Units 09:40 WBC 11.14 H (4.8-10.8) K/uL Hgb 9.0 L (12.0-16.0) g/dL Hct 27.1 L (37-47) % Plt Count 357 (130-400) K/uL BMP 03/11/19 09:40 Sodium 138 Potassium 4.5 Chloride 109 H Carbon Dioxide 23 BUN 36 H Creatinine 1.32 H Glucose 198 H Calcium 9.0 Cardiac Enzymes 03/11/19 Range/Units 09:40 Troponin I < 0.015 (0-0.045) ng/ml Liver Function 03/11/19 Range/Units 09:40 Total Bilirubin 0.4 (0.2-1) mg/dl AST 25 (15-37) U/L ALT 24 (12-78) U/L Alkaline Phosphatase 67 (45-117) U/L Albumin 2.8 L (3.4-5.0) gm/dl Diagnostic Findings CT HEAD: Impression: No acute intracranial abnormality. ECG Rate (beats per minute): 84 Rhythm: sinus rhythm Findings: + nonspecific-ST abn (Inferior) Code Status & VTE Plan VTE Prophylaxis Plan VTE Prophylaxis will be ordered: Yes Supervising Physician Co-Signing Physician Notes HISTORY: Record reviewed. Patient interviewed and examined. Care coordinated with Anayeli Bautista PA-C. Please refer to her documentation complete history. Briefly, 73 YO female with history of CAD (s/p CABG), diastolic CHF, hypertension, sleep apnea on CPAP, GERD, gastric polyps, sigmoid diverticulosis, DM type 2 and other problems. Right TKA performed by Dr. An on 02/26/19. Placed on warfarin postoperatively for VTE prophylaxis. Presented to ED with lower GI bleeding with 5 episodes of loose stools with ady blood, orthostatic lightheadedness, and 2 syncopal episodes. EMS summoned. Systolic BP as low as 73 at home. Has some crampy lower abdominal pain. No nausea or vomiting. Taking aspirin 81 mg daily for CAD. No NSAID's since about 1 week prior to TKA. No excessive alcohol consumption. Taking nitrofurantoin for UTI. EXAM: General- no distress Lungs- clear to auscultation; no respiratory distress Cardiovascular- RRR; I/ systolic murmur at base; no gallop; no JVD; no pretibial edema Abdomen- + bowel sounds, soft, nondistended, nontender Extremities- no cyanosis; no calf tenderness; right knee incision stapled without erythema or drainage Neuro- alert, oriented Skin- warm & dry DATA: Hgb 9.0, WBC 11,140, plts 357,000. INR 3.0. Normal lytes, BUN 36, creatinine 1.32, random glucose 198. Other lab studies as noted. CT head negative for hemorrhage or other acute process. EKG performed at 09:37 reviewed and demonstrated NSR at 84 / minute, biphasic / flattened T-waves inferiorly. ASSESSMENT AND PLAN: GI bleed, probably lower. Differential diagnosis includes diverticular bleed and C diff colitis. Received 500 ml NSS bolus. Started on pantoprazole infusion. 1 unit of pRBC's ordered and hung. GI consulted. Vitamin K to reverse warfarin. Monitor H/H, INR, hemodynamics. Syncope most likely secondary to orthostasis from GI bleeding. History of CAD, s/p CABG 5 years ago. No anginal symptoms. Continue ASA if possible. Hold verapamil x 24 hours, then resume with parameters. History of diastolic CHF, compensated. Monitor volume status and cardiopulmonary status closely. History of hypertension treated with verapamil and lisinopril. Hold lisinopril due to GI bleeding. Verapamil as noted above. Follow and titrate Rx. S/P recent right TKA. Wound looks OK. Ortho aware of admission. Need to stop warfarin because of GI bleed. SCD's and TEDS for VTE prophylaxis during hospital stay. Please refer to KANA Little's documentation for discussion of other issues. (1) GI (gastrointestinal bleed) GI bleed type/associated pathology: unspecified gastrointestinal hemorrhage type Qualified Code(s): K92.2 - Gastrointestinal hemorrhage, unspecified (2) Syncope Syncope type: unspecified Qualified Code(s): R55 - Syncope and collapse
--- NOTE | 2019-03-11 12:28 | Communication Note ---
Date of Service: March 11, 2019 HISTORY: Record reviewed. Patient interviewed and examined. Care coordinated with Anayeli Bautista PA-C. Please refer to her documentation complete history. Briefly, 73 YO female with history of CAD (s/p CABG), diastolic CHF, hypertension, sleep apnea on CPAP, GERD, gastric polyps, sigmoid diverticulosis, DM type 2 and other problems. Right TKA performed by Dr. An on 02/26/19. Placed on warfarin postoperatively for VTE prophylaxis. Presented to ED with lower GI bleeding with 5 episodes of loose stools with ady blood, orthostatic lightheadedness, and 2 syncopal episodes. EMS summoned. Systolic BP as low as 73 at home. Has some crampy lower abdominal pain. No nausea or vomiting. Taking aspirin 81 mg daily for CAD. No NSAID's since about 1 week prior to TKA. No excessive alcohol consumption. Taking nitrofurantoin for UTI. EXAM: General- no distress Lungs- clear to auscultation; no respiratory distress Cardiovascular- RRR; I/ systolic murmur at base; no gallop; no JVD; no pretibial edema Abdomen- + bowel sounds, soft, nondistended, nontender Extremities- no cyanosis; no calf tenderness; right knee incision stapled with out erythema or drainage Neuro- alert, oriented Skin- warm & dry DATA: Hgb 9.0, WBC 11,140, plts 357,000. INR 3.0. Normal lytes, BUN 36, creatinine 1.32, random glucose 198. Other lab studies as noted. CT head negative for hemorrhage or other acute process. EKG performed at 09:37 reviewed and demonstrated NSR at 84 / minute, biphasic / flattened T-waves inferiorly. ASSESSMENT AND PLAN: GI bleed, probably lower. Differential diagnosis includes diverticular bleed and C diff colitis. Received 500 ml NSS bolus. Started on pantoprazole infusion. 1 unit of pRBC's ordered and hung. GI consulted. Vitamin K to reverse warfarin. Monitor H/H, INR, hemodynamics. Syncope most likely secondary to orthostasis from GI bleeding. History of CAD, s/p CABG 5 years ago. No anginal symptoms. Continue ASA if possible. Hold verapamil x 24 hours, then resume with parameters. History of diastolic CHF, compensated. Monitor volume status and cardiopulmonary status closely. History of hypertension treated with verapamil and lisinopril. Hold lisinopril due to GI bleeding. Verapamil as noted above. Follow and titrate Rx. S/P recent right TKA. Wound looks OK. Ortho aware of admission. Need to stop warfarin because of GI bleed. SCD's and TEDS for VTE prophylaxis during hospital stay. Please refer to KANA Little's documentation for discussion of other issues.
[2019-03-11] MEDS ORDERED: ONDANSETRON INJ 2 MG/ML 2 ML VIAL IV PRN (12:56)
[2019-03-11] MEDS ORDERED: GLUCAGON FOR INJ 1 MG VIAL SQ PRN (12:56)
[2019-03-11] MEDS ORDERED: GLUCOSE 40% GEL 15 GM TUBE PO PRN (12:56)
[2019-03-11] MEDS ORDERED: DEXTROSE 50% 50 ML SYRINGE IV PRN (12:56)
[2019-03-11] MEDS ORDERED: GLUCOSE 10 TABS/TUBE PO PRN (12:56)
[2019-03-11] MEDS ORDERED: CARBOHYDRATES FOR HYPOGLYCEMIA PO PRN (12:56)
[2019-03-11] MEDS ORDERED: ACETAMINOPHEN 1,000 MG/100 ML VIAL IV PRN (12:57)
--- NOTE | 2019-03-11 14:26 | XRay Report ---
XR chest 1V portable CLINICAL HISTORY: 73 years-old Female presenting with CHF, shortness of breath. TECHNIQUE: Portable upright AP view of the chest was obtained. COMPARISON: 02/03/2019. FINDINGS: Median sternotomy wires. Atherosclerosis of the aortic arch. Cardiac silhouette mildly enlarged. No s ignificant engorgement of pulmonary vasculature. No focal opacity. No large effusion or pneumothorax. Left shoulder arthroplasty. Mild degenerative changes of the right glenohumeral joint. Cholecystecto my clips noted. Numerous external leads overlie the upper abdomen to grating evaluation of this regio n. IMPRESSION: 1. Cardiomegaly. No other convincing evidence of acute cardiopulmonary disease. Electronically signed by: Ronen Good M.D. 03/11/2019 2:24 PM
[2019-03-11] MEDS ORDERED: OXYCODONE/ACETAMINOPHEN 5mg/325mg TAB PO PRN (14:36)
--- NOTE | 2019-03-11 14:36 | Emergency Department Note ---
Entered by Nadia Aguilar acting as a scribe for Cipriano Kay MD History of Present Illness General Chief complaint: Syncope (Near Syncope) Stated complaint: syncope/bloody stool Time Seen by Provider: 03/11/19 09:34 Source: patient History of Present Illness Provider complaint: syncope Onset (ago): hour(s) 3 Location: head Radiation: non-radiation Pain Consistency: + intermittent Relieved By: + none Associated symptoms: + other (bloody diarrhea, clammy, unwell feeling); no chest pain, no nausea/vomiting and no shortness of breath The patient is a 73 y/o female with a past medical history of significant for frequent chest pain, CAD, hypertension, elevated cholesterol, sleep apnea. Uses CPAP with 1 liter of oxygen, osteoarthritis, low back pain, GERD, history of hiatal hernia, obesity, history of squamous cell cancer, chronic stage III kidney insufficiency, hypothyroidism, insulin dependent diabetes, and history of borderline anemia with easy bruising and history of vertigo, who presents to the emergency department for evaluation of intermittent episodes of syncope that began three hours ago. The patient states that she is on Coumadin following a right total knee replacement on Feb [address] An. She notes that for the past 12 hours she has had 5 episodes of diarrhea with bright red stool roughly every three hours. The patient reports that this morning she felt weak, clammy, and unwell then at 9am when the home nurse came to check on her she reports she passed out and woke up on the family room floor feeling very disor iented. She reports that she had an episode of bloody diarrhea and then had another episode of syncope and woke up on the bathroom floor. The patient denies nausea, vomiting, chest pain, new shortness of breath, and any other symptoms. Home Medications Home Medications Medication Instructions Recorded Confirmed Type biotin 2,500 mcg capsule 5,000 mcg PO QAM cap 01/03/19 03/11/19 History lansoprazole 30 mg capsule,delayed 30 mg PO QAM cap 01/03/19 03/11/19 History release levothyroxine 125 mcg tablet 125 mcg PO QAM tab 01/03/19 03/11/19 History lisinopril 10 mg tablet 10 mg PO HS tab 01/03/19 03/11/19 History magnesium 400 mg (as magnesium 400 mg PO QDL cap 01/03/19 03/11/19 History oxide) capsule repaglinide 1 mg tablet 1 mg PO TID PRN tab 01/03/19 03/11/19 History verapamil ER (SR) 240 mg 240 mg PO HS tab 01/03/19 03/11/19 History tablet,extended release Lantus U-100 Insulin 22 unit SUBCUT HS 01/28/19 03/11/19 History Refresh Optive Mateusz-3 (PF) 1 drp OPHTHALMIC (EYE) TID 01/28/19 03/11/19 History aspirin [Aspir-81] 81 mg PO DAILY 01/28/19 03/11/19 History cholecalciferol (vitamin D3) 400 unit PO QAM 01/28/19 03/11/19 History [Vitamin D3] furosemide 20 mg PO QAM 01/28/19 03/11/19 History rosuvastatin [Crestor] 40 mg PO HS 01/28/19 03/11/19 History valacyclovir 500 mg PO QAM 01/28/19 03/11/19 History nitrofurantoin 100 mg PO HS #30 cap 02/14/19 03/11/19 Rx monohydrate/macrocrystals 100 mg capsule Probiotic 3,000 mmu cells PO QDL 02/26/19 03/11/19 History acetaminophen [Tylenol Extra 500 mg PO Q4 PRN 02/26/19 03/11/19 History Strength] multivitamin 1 tab PO QAM 02/26/19 03/11/19 History dulaglutide [Trulicity] 1.5 mg SUBCUT WK 03/11/19 03/11/19 History oxycodone-acetaminophen [Percocet] 1 - 2 tab PO Q4H PRN 03/11/19 03/11/19 History warfarin 4 mg PO HS 03/11/19 03/11/19 History Allergies Allergy/AdvReac Type Severity Reaction Status Date / Time Bactrim Allergy Severe HIVES, Verified 09/27/17 10:27 ITCHING, ANAPHYLAXIS Sulfa (Sulfonamide Allergy Severe "BACTRIM" Verified 03/11/19 10:38 Antibiotics) HIVES, ITCHING AND ANAPHYLAXIS sulfamethoxazole Allergy Severe HIVES, Verified 03/11/19 10:38 ITCHING, ANAPHYLAXIS trimethoprim Allergy Severe HIVES, Verified 03/11/19 10:38 ITCHING, ANAPHYLAXIS cat dander Allergy Intermediate AND DOGS - Verified 03/11/19 10:38 SNEEZING cortisone Allergy Intermediate HIVES Verified 03/11/19 10:38 Penicillins Allergy Intermediate HIVES Verified 03/11/19 10:38 Chlorine Allergy Intermediate ECZEMA Uncoded 03/11/19 10:38 Past Med/Surg History Medical History Recurrent UTI (Chronic) Sleep apnea (Chronic) CPAP + 1L O2 HS Diastolic heart failure (Chronic) 2013 (subsequently had cardiac cath/blockage and CABG x 1) Degenerative disc disease (Chronic) History of skin cancer (Chronic) s/p resection Acid reflux (Chronic) occasional breakthrough Hiatal hernia (Chronic) CAD (coronary artery disease) (Chronic) CABG X 1- PALOMINO-LAD (2013) Obesity (Chronic) Hypothyroidism (Chronic) Dyslipidemia (Chronic) Diabetes mellitus, type II (Chronic) Osteoarthritis (Chronic) HTN (hypertension) (Chronic) Stage III chronic kidney disease (Chronic) Aortic aneurysm (Chronic) Anemia (Chronic) History of blood clots 2015 - LLE (s/p flight) ? superficial. Per patient, did not require long-term anticoagulation/no issues since Surgical History History of heart bypass surgery (Chronic) CABG X 1 (2013) History of varicose vein ligation and stripping (Chronic) B/L LE History of colonoscopy (Chronic) History of endoscopy (Chronic) History of cardiac cath (Chronic) 1999= NO STENTS 2013= NO STENTS, SUBSEQUENT CABG X 1 2014= NO STENTS History of eye surgery (Chronic) LASIK - LEFT History of cataract surgery (Chronic) R&L Status post total knee replacement, right (Chronic) History of surgery PLASTIC - "NECK LIFT" Family History Aunt Family history of diabetes mellitus Social History Preferred Language: Setswana Communication Ability: Effective Welt Cutter Required: No Beliefs That Will Affect Care: None Current Living Situation: Significant Other Other Information That Helps Us Care for You: No Feels Safe at Home: Yes Safety Concerns: Feels Safe At This Time Smoking Status: Never smoker Hx Alcohol Use: No Hx Substance Use: No Review of Systems See HPI for pertinent positives & negatives. and A total of 10 systems reviewed and were otherwise negative Physical Exam Vital Signs Vital Signs - 24 hr 03/11/19 09:31 03/11/19 09:32 10/22/19 09:44 Temperature 36.6 C Temperature Source Oral Sepsis Recent Fever Within 48 Hours No Sepsis Action Taken by Nursing No Action Required Pulse Rate 94 H 83 85 Pulse Rate [Left Finger] Pulse Rate from SpO2 Sensor 82 Pulse Rhythm Regular Respiratory Rate 18 17 20 Respiratory Effort / Characteristics Non-Labored Spontaneous Respiratory Depth Normal Respiratory Pattern Regular Blood Pressure 110/57 L 110/57 L Blood Pressure [Right Arm] Blood Pressure Mean 74 74 Blood Pressure Mean [Right Arm] Pulse Oximetry 95 95 Oxygen Delivery Method Room Air 03/11/19 10:00 03/11/19 10:14 03/11/19 10:20 Temperature Temperature Source Sepsis Recent Fever Within 48 Hours Sepsis Action Taken by Nursing Pulse Rate 82 79 72 Pulse Rate [Left Finger] Pulse Rate from SpO2 Sensor 75 73 Pulse Rhythm Respiratory Rate 22 20 20 Respiratory Effort / Characteristics Respiratory Depth Respiratory Pattern Blood Pressure 85/46 L Blood Pressure [Right Arm] Blood Pressure Mean 59 Blood Pressure Mean [Right Arm] Pulse Oximetry 98 95 Oxygen Delivery Method 03/11/19 10:22 03/11/19 10:30 03/11/19 11:08 Temperature Temperature Source Sepsis Recent Fever Within 48 Hours Sepsis Action Taken by Nursing Pulse Rate 69 69 Pulse Rate [Left Finger] 67 Pulse Rate from SpO2 Sensor 69 68 Pulse Rhythm Respiratory Rate 19 23 22 Respiratory Effort / Characteristics Respiratory Depth Respiratory Pattern Blood Pressure 110/45 L 105/46 L Blood Pressure [Right Arm] 105/50 L Blood Pressure Mean 66 65 Blood Pressure Mean [Right Arm] 68 Pulse Oximetry 96 96 97 Oxygen Delivery Method Room Air GENERAL: Mildly pale appearing, well nourished. EYE EXAM: Normal conjunctiva. PERRL, no anisocoria and EOM's grossly intact w/o pain. OROPHARYNX: Moist mucus membranes. Grossly normal dentition. NECK: Supple, no nuchal rigidity, no adenopathy, non-tender. No signs of meningismus. LUNGS: Clear to auscultation. Normal chest wall mechanics. HEART: NSR, no MRG. ABDOMEN: Abdomen soft, non-tender, normo-active bowel sounds, no masses, no rebound or guarding. BACK: No CVA TTP. SKIN: No rashes and no bruising. UPPER EXTREMITIES: Upper extremities are grossly normal. LOWER EXTREMITIES: No pitting edema. No calf pain. Right knee is in a bandage. Compartments soft. No pain distal to knee. NEURO EXAM: A&O x3, cranial nerves II-XII grossly intact, normal speech, moves all 4 extremities on command w/o issue. Course 0944: Past medical records reviewed. The patient was evaluated in room A10. A complete history and physical exam was performed. 1035: I spoke with Ember ROGER for Dr. Chantel Espinoza. They will evaluate for further management. 1037: I updated the patient on her results and the treatment plan. She consented to a blood transfusion. Administered Medications Pantoprazole Sodium 40 mg/ (Dextrose) 100 mls @ 20 mls/hr IV Q5H GABBY Stop: 04/10/19 10:59 Last Infusion: 03/11/19 13:44 Dose: 20 mls/hr Documented by: [id number] Infusion: 03/11/19 13:14 Dose: 0 mls/hr Documented by: [id number] Admin: 03/11/19 10:56 Dose: 20 mls/hr Documented by: [id number] Discontinued Medications Sodium Chloride (Nss) 500 mls @ 999 mls/hr IV .Q31M GABBY Stop: 03/11/19 10:15 Last Infusion: 03/11/19 10:30 Dose: 0 mls/hr Documented by: [id number] Admin: 03/11/19 09:55 Dose: 999 mls/hr Documented by: [id number] Pantoprazole Sodium 80 mg/ (Dextrose) 120 mls @ 480 mls/hr IV TODAY@1045 [facility] Stop: 03/11/19 10:59 Last Infusion: 03/11/19 11:10 Dose: 0 mls/hr Documented by: [id number] Admin: 03/11/19 10:56 Dose: 480 mls/hr Documented by: [id number] Phytonadione 5 mg/ Sodium (Chloride) 50.5 mls @ 101 mls/hr IV TODAY@1145 [facility] Stop: 03/11/19 12:14 Last Infusion: 03/11/19 13:44 Dose: 0 mls/hr Documented by: [id number] Admin: 03/11/19 13:14 Dose: 101 mls/hr Documented by: [id number] Medical Decision Making Differential Diagnosis Differential diagnosis: Etiologies such as esophagitis, variceal bleed, Boerhaaves, Symerton-Benjamin tear, gastritis, peptic ulcer disease, AVM, inflammatory bowel disease, ischemia, diverticulosis, colitis, malignancy, coagulopathy, thrombocytopenia, fissure, hemorrhoid, epistaxis , as well as others were entertained. Medical Records Attestation: I reviewed the patient's medical records. Home Medications Current Medication List: was personally reviewed by me Laboratory Data Attestation: I reviewed the patient's lab results. Result diagrams: 03/11/19 09:40 03/11/19 09:40 Lab Results 03/11/19 03/11/19 03/11/19 Range/Units 09:40 09:40 09:40 WBC 11.14 H (4.8-10.8) K/uL RBC 2.71 L (4.2-5.4) M/uL Hgb 9.0 L (12.0-16.0) g/dL Hct 27.1 L (37-47) % MCV 100.0 (80-100) fL MCH 33.2 (25-34) pg MCHC 33.2 (32-36) g/dL RDW Std Deviation 52.7 H (36.4-46.3) fL RDW Coeff of Chikis 14.6 H (11.5-14.5) % Plt Count 357 (130-400) K/uL MPV 8.3 (7.4-10.4) fL Immature Gran % (Auto) 0.3 % Neut % (Auto) 77.6 % Lymph % (Auto) 16.5 % Ripley % (Auto) 4.4 % Eos % (Auto) 0.8 % Baso % (Auto) 0.4 % Immature Gran # (Auto) 0.03 H (0.00-0.02) K/uL Neut # (Auto) 8.64 H (1.4-6.5) K/uL Lymph # (Auto) 1.84 (1.2-3.4) K/uL Ripley # (Auto) 0.49 (0.11-0.59) K/uL Eos # (Auto) 0.09 (0-0.5) K/uL Baso # (Auto) 0.05 (0-0.2) K/uL PT 28.2 H (9.0-12.0) Seconds INR 3.0 H (0.9-1.1) APTT 34.7 H (21.0-31.0) Seconds PTT Ratio 1.3 Sodium 138 (136-145) mmol/L Potassium 4.5 (3.5-5.1) mmol/L Chloride 109 H (98-107) mmol/L Carbon Dioxide 23 (21-32) mmol/L Anion Gap 7.0 (3-11) BUN 36 H (7-18) mg/dl Creatinine 1.32 H (0.6-1.2) mg/dl Est Cr Clr Drug Dosing 39.8 ml/min Est GFR ( Amer) 45.6 Est GFR (Non-Af Amer) 39.4 BUN/Creatinine Ratio 27.1 H (10-20) Glucose 198 H (70-99) mg/dl Calcium 9.0 (8.5-10.1) mg/dl Total Bilirubin 0.4 (0.2-1) mg/dl AST 25 (15-37) U/L ALT 24 (12-78) U/L Alkaline Phosphatase 67 (45-117) U/L Troponin I < 0.015 (0-0.045) ng/ml Total Protein 5.8 L (6.4-8.2) gm/dl Albumin 2.8 L (3.4-5.0) gm/dl Globulin 3.0 (2.5-4.0) gm/dl Albumin/Globulin Ratio 0.9 (0.9-2) Blood Type Antibody Screen Crossmatch 03/11/19 Range/Units 10:02 WBC (4.8-10.8) K/uL RBC (4.2-5.4) M/uL Hgb (12.0-16.0) g/dL Hct (37-47) % MCV (80-100) fL MCH (25-34) pg MCHC (32-36) g/dL RDW Std Deviation (36.4-46.3) fL RDW Coeff of Chikis (11.5-14.5) % Plt Count (130-400) K/uL MPV (7.4-10.4) fL Immature Gran % (Auto) % Neut % (Auto) % Lymph % (Auto) % Ripley % (Auto) % Eos % (Auto) % Baso % (Auto) % Immature Gran # (Auto) (0.00-0.02) K/uL Neut # (Auto) (1.4-6.5) K/uL Lymph # (Auto) (1.2-3.4) K/uL Ripley # (Auto) (0.11-0.59) K/uL Eos # (Auto) (0-0.5) K/uL Baso # (Auto) (0-0.2) K/uL PT (9.0-12.0) Seconds INR (0.9-1.1) APTT (21.0-31.0) Seconds PTT Ratio Sodium (136-145) mmol/L Potassium (3.5-5.1) mmol/L Chloride (98-107) mmol/L Carbon Dioxide (21-32) mmol/L Anion Gap (3-11) BUN (7-18) mg/dl Creatinine (0.6-1.2) mg/dl Est Cr Clr Drug Dosing ml/min Est GFR ( Amer) Est GFR (Non-Af Amer) BUN/Creatinine Ratio (10-20) Glucose (70-99) mg/dl Calcium (8.5-10.1) mg/dl Total Bilirubin (0.2-1) mg/dl AST (15-37) U/L ALT (12-78) U/L Alkaline Phosphatase (45-117) U/L Troponin I (0-0.045) ng/ml Total Protein (6.4-8.2) gm/dl Albumin (3.4-5.0) gm/dl Globulin (2.5-4.0) gm/dl Albumin/Globulin Ratio (0.9-2) Blood Type O Positive Antibody Screen NEGATIVE Crossmatch See Detail ECG Data Attestation: I personally reviewed and interpreted this ECG as follows: Indication: other (GI bleed) Rate (beats per minute): 84 Rhythm: normal sinus Findings: + other (normal interval, left axis deviation), + Q waves (Inferior) and + prolonged QT Comparison ECG Date: from (04/22/12) Change: no significant change Blood Pressure Blood Pressure Findings: Low blood pressure Blood Pressure Disposition: further management by hospitalist ORESTES Huff Patient was seen and evaluated the bedside. The patient did present with concern for bloody diarrhea and associated syncope x2. The patient is mildly pale in appearance but not toxic. The patient has been taking Coumadin status post a right total knee replacement completed on February 26. The patient did a blood work completed along with IVs IV fluids type and screen. Patient denies any prior history of inflammatory bowel disease or colon cancer. Patient does have a hemoglobin of 9. INR is 3. Patient was ordered 1 unit of PRBCs as the patient will likely somewhat be hemo-delusional after fluids. Patient was consented. I did speak the on-call hospitalist agreed to further evaluate treat the patient. Patient was also ordered PPI bolus and drip given the elevated BUN to creatinine ratio the patient has complained of bright red blood per rectum and not melenic stool. Impression & Plan GI (gastrointestinal bleed), Anemia, Anticoagulated, Syncope Critical Care Time Critical Care Time: Yes Total Critical Care Time: 40 I have personally spent 40 minutes of critical care time in the direct management of this patient. This includes bedside care, interpretation of diagnostic studies, and testing, discussion with consultants, patient, and family members, and other required patient management activities. This 40 minute s is in excess of all separately billable procedures. Discharge Plan Visit Data *Final* Discharge Date/Time: 03/11/19 12:30 Chief Complaint: Syncope (Near Syncope) Stated Complaint: syncope/bloody stool ED Provider: Cipriano Kay Discharge Problem: GI (gastrointestinal bleed), Anemia, Anticoagulated, Syncope Patient Disposition: Admitted As Inpatient Discharge Instructions Interventions: ED Discharge Assessment Last Done: 03/11/19 12:30 Discharge Problem: GI (gastrointestinal bleed) Qualifiers: GI bleed type/associated pathology: unspecified gastrointestinal hemorrhage type Qualified Code(s): K92.2 - Gastrointestinal hemorrhage, unspecified Anemia Qualifiers: Anemia type: unspecified type Qualified Code(s): D64.9 - Anemia, unspecified Syncope Qualifiers: Syncope type: unspecified Qualified Code(s): R55 - Syncope and collapse The scribe's documentation has been prepared under my direction and personally reviewed by me in its entirety. I confirm that the note above accurately reflects all work, treatment, procedures, and medical decision making performed by me.
[2019-03-11] MEDS: ARTIFICIAL TEARS OP SCH ×2 (17:15→20:54)
[2019-03-11 17:32] LABS: Hematocrit (blood only) 27.4 % (37-47); Hemoglobin 9.1 g/dL (12.0-16.0)
[2019-03-11] MEDS: INSULIN ASPART 100 UNITS/ML 3 ML PEN SC SCH ×2 (17:43→20:56)
[2019-03-11 17:46] LABS: INR 1.8 (0.9-1.1); Prothrombin Time 17.4 Seconds (9.0-12.0)
[2019-03-11] MEDS: INSULIN GLARGINE SOLOSTAR 100 UNITS/ML 3 ML PEN SC SCH (20:56)
[2019-03-11 23:21] LABS: Hematocrit (blood only) 26.5 % (37-47); Hemoglobin 8.9 g/dL (12.0-16.0)
[2019-03-12 00:34] LABS: Appearance Urine Clear (Clear); Bacteria Urine Automated Negative (Negative); Bilirubin Urine Negative (Negative); Blood Urine 1+ (Negative); Color Urine Yellow; Epithelial Cell Urine Auto >30 /lpf (0-5); Glucose Urine UA Negative (Negative); Ketones Urine Negative (Negative); Leukocyte Esterase Urine Trace (Negative); Nitrite Urine Negative (Negative); Protein Urine Negative (Negative); Specific Gravity Urine 1.016 (1.000-1.030); Urobilinogen Urine Negative (Negative); pH Urine 5.5 (4.5-7.5)
[2019-03-12] MEDS: PANTOprazole 40 MG in DEXTROSE 5% 100 ML IV SCH ×3 (01:58→11:54)
--- NOTE | 2019-03-12 07:18 | XRay Report ---
XR chest 1V portable CLINICAL HISTORY: H/O CHF COMPARISON STUDY: Chest radiograph March 11, 2019. FINDINGS: Incidental note is made of a left shoulder arthroplasty and median sternotomy wires. There is cardiomegaly without evidence for pulmonary edema. No pneumothorax or pleural effusion is noted. N o consolidation to suggest pneumonia. The appearance of the chest is unchanged. IMPRESSION: No acute cardiopulmonary findings. Electronically signed by: Hamzah Cavanaugh M.D. 03/12/2019 7:17 AM
[2019-03-12 07:20] LABS: Hemoglobin 8.4 g/dL (12.0-16.0); Mean Corpuscular Hemoglobin 31.7 pg (25-34); Mean Corpuscular Hgb Conc 33.6 g/dL (32-36); Mean Corpuscular Volume 94.3 fL (80-100); Mean Platelet Volume 8.2 fL (7.4-10.4); Platelet Count 272 K/uL (130-400); RDW Standard Deviation 62.2 fL (36.4-46.3); Red Blood Count 2.65 M/uL (4.2-5.4); White Blood Count 9.05 K/uL (4.8-10.8)
[2019-03-12 07:29] LABS: INR 1.3 (0.9-1.1); Prothrombin Time 12.8 Seconds (9.0-12.0)
[2019-03-12 07:56] LABS: BUN Creatinine Ratio 21.8 (10-20); Calcium 8.6 mg/dl (8.5-10.1); Creatinine Clr Calc Pharmacy 48.7 ml/min; Est GFR (African American) 58.2; Est GFR (Non-African American) 50.2; Potassium 3.9 mmol/L (3.5-5.1)
[2019-03-12] MEDS: INSULIN ASPART 100 UNITS/ML 3 ML PEN SC SCH ×4 (07:57→20:50)
[2019-03-12] MEDS: ASPIRIN 81 MG ECTAB PO SCH (08:00)
[2019-03-12] MEDS: ARTIFICIAL TEARS OP SCH ×3 (08:00→20:47)
--- NOTE | 2019-03-12 08:36 | Progress Note ---
DATE: The patient is seen in the operating room in PCU. She is now hemodynamically stable. She denies chest pain, shortness of breath, fever, chills, nausea, vomiting or headache. She notes that she had 5 bloody stools. Medicine is involved per Dr. Hernandez as well as GI consult. At this point in time, her knee looks fine. Wound is clean and dry. Anna are intact. No evidence of infection, DVT, PE, etc. At this point, would suggest continue DVT prophylaxis with an AK-TEDs and SCDs and any type of medication that GI would allow. Needs to be weightbearing, needs to be mobile as soon as her orthostatic changes allow. She will follow up on for scheduled staple removal. If she is still in the hospital, we will move them up there. The patient was informed of this. She states she understands.
--- NOTE | 2019-03-12 09:41 | Gastroenterology Progress Note ---
Date of Service March 12, 2019 Assessment & Plan (1) Status post total knee replacement, right: (2) Syncope: (3) GI (gastrointestinal bleed): Pt is a 73 y/o female who presented w syncope, lower abd cramping, and bloody diarrhea. She recently had R TKR on 02/26, DC'd home on Coumadin for DVT prophylaxis and was also taking baby ASA. INR noted to be 3 on presentation. H/H 02/14 (baseline Hgb 11, 2 weeks ago). BUN elevated at 32. Likely GI bleeding in setting of anticoagulant and ASA use. H/H stable, BUN/Cr normalized, INR down to 1.3. She hasn't had any more signs of bloody diarrhea since admitted. Tolerating CL diet well - Changed to PPI PO BID - Monitor H/H closely; transfuse prn - CL diet till this afternoon, if continues to do well w/o signs of further bleeding may advance as tolerated - Continue to defer endoscopic evaluations for now, unless further signs of GI bleed Supervising Physician Co-Signing Physician Notes I have personally seen and examined the patient with LJ Morelos. Her note reflects my exam and finding. I agree with her impression and plan. Pt doing well with no evidence of continued active bleeding. Patient should stay on PPI indefinitely. No roll for EGD at this point. Dax Hicks M.D. Subjective Pt hasn't had any more BMs since yesterday morning. She denies any CP, SOB, light headedness, dizziness, abd pain, n/v. Tolerating CL diet well Given 1U PRBC transfusion. Hgb stable between 8-9. BUN/Cr normalized. INR down to 1.3 Review of Systems Review of Systems: All systems reviewed & are unremarkable except as noted in HPI & below Physical Exam Constitutional: WD/WN, vitals as above well groomed, cooperative and comfortable Eyes: PERRL, conjunctivae normal, anicteric sclerae ENMT: external ear and nose normal, oropharynx normal Respiratory: normal respiratory effort, lungs clear to auscultation Cardiovascular: RRR, no murmur, no edema Gastrointestinal (Abdomen): normal bowel sounds, soft, nontender, no hepatosplenomegaly Skin: no rashes, warm and dry Psychiatric: A+Ox3, euthymic affect Lymphatic: no lymphedema Results & Data Vital Signs (Past 12 Hours) Vital Signs Temp Pulse Pulse Resp BP Pulse Ox 03/12/19 07:30 36.8 C 70 16 112/64 03/12/19 03:31 37.0 C 68 20 116/67 97 03/12/19 02:33 72 03/11/19 23:46 37.2 C 69 20 107/58 L 94 (1) GI (gastrointestinal bleed) GI bleed type/associated pathology: unspecified gastrointestinal hemorrhage type Qualified Code(s): K92.2 - Gastrointestinal hemorrhage, unspecified (2) Syncope Syncope type: unspecified Qualified Code(s): R55 - Syncope and collapse
--- NOTE | 2019-03-12 10:36 | Progress Note ---
DATE: 03/12/2019 At this point in time, the patient is doing well, has had no further GI bleeding. She did decrease her H&H a bit. She notes no increased pain anywhere. Orthopedic pertinent exam reveals the wound to be clean and dry. Will theoretically try to remove mariano today or tomorrow depending on the discharge. Neurovascular check is normal. Calves are nontender. She needs to use her SCDs. She needs to buy the home units. We will also order some physical therapy and ice for the knee. Will follow up with us in 4 weeks from discharge in the office.
--- NOTE | 2019-03-12 11:31 | Hospitalist Progress Note ---
Date of Service March 12, 2019 Assessment & Plan (1) GI (gastrointestinal bleed): GI bleed due to anticoagulant therapy Patient had multiple episodes of loose stools with ady blood, orthostatic lightheadedness and 2 syncopal episodes Likely lower GI bleed, such as diverticular On warfarin after right TKA performed on February 26, 2019 Warfarin held, discussed with the patient that she will need SCDs as DVT prophylaxis, patient plans to purchase her own SCDs Patient also takes aspirin for CAD GI was consulted, no plan for scope at this time, will follow-up as outpatient Patient was started on IV PPI, plan to switch to p.o. PPI, received vitamin K to reverse warfarin GI bleed seemed to resolve, patient had one small bowel movement today which was nonbloody (2) Acute blood loss anemia: Secondary to GI bleed and warfarin use, as above (3) CAD (coronary artery disease): Status post CABG about 5 years ago Currently no anginal symptoms, on aspirin At home also takes verapamil which was held on admission due to hypotension, plan to resume prior on discharge Statin held on admission, will resume on discharge (4) Diastolic heart failure: At this time we will compensated Need to monitor fluid and cardiopulmonary status closely (5) HTN (hypertension): At home takes verapamil and lisinopril, will hold due to GI bleed Plan to resume on discharge (6) Anticoagulated: Patient on warfarin due to recent TKA, performed on February 26 We will need to hold warfarin for now, and she will be using SCDs for DVT prophylaxis Anna should be removed tomorrow by Ortho service, orthopedics following (7) Sleep apnea: On CPAP with 1 L oxygen at bedtime, will continue (8) Diabetes mellitus, type II: Hemoglobin A1c 6.5, in January 2019 At home on Prandin and Trulicity, which were held on admission Lantus, NovoLog SSI We will continue to monitor and adjust medications as necessary (9) Hypothyroidism: Continue home levothyroxine (10) Stage III chronic kidney disease: Current creatinine 1.1 No current issues We will continue to monitor renal function closely We will try to avoid nephrotoxic agents such as contrast and NSAIDs Subjective Patient sitting in the chair, comfortably. She is alert and oriented, denies any dizziness, chest pain, shortness of breath, nausea, vomiting. She did have a small bowel movement which was nonbloody. Review of Systems Constitutional: no fever, no chills and no fatigue Respiratory: no cough and no dyspnea Cardiovascular: no chest pain and no dyspnea Gastrointestinal: no abdominal pain, no nausea and no vomiting Physical Exam Physical Exam: Patient is sitting in a chair comfortably, in no acute distress Constitutional: well developed and well nourished; no acute distress Eyes: PERRL, conjunctivae normal, anicteric sclerae ENMT: external ear and nose normal, oropharynx normal Neck: supple Respiratory: normal respiratory effort, lungs clear to auscultation no labored breathing Auscultation: no wheezes Cardiovascular: RRR, no murmur, no edema Chest (Breasts): Chest: normal inspection of chest Gastrointestinal (Abdomen): Inspection/Auscultation: abdomen normal to inspection and normal bowel sounds; abdomen not distended Percussion/Palpation: abdomen soft; abdomen nontender Musculoskeletal: Head/Neck/Chest: normocephalic, head atraumatic and neck supple Extremities: extremities normal to inspection Right knee incision stapled without erythema or drainage Skin: no rashes, warm and dry Neurologic: PERRL, EOMI, accommodation nl, no face palsy, no dysarthria No sensory loss noted Psychiatric: A+Ox3, euthymic affect Speech: normal rate/rhythm/volume of speech Genitourinary: no CVA tenderness Lymphatic: no lymphedema and no cervical lymphadenopathy Results & Data Vital Signs (Past 12 Hours) Vital Signs Temp Pulse Pulse Resp BP Pulse Ox 03/12/19 07:30 36.8 C 70 16 112/64 03/12/19 03:31 37.0 C 68 20 116/67 97 03/12/19 02:33 72 03/11/19 23:46 37.2 C 69 20 107/58 L 94 Laboratory Results 03/12/19 03/12/19 03/12/19 Range/Units 20:40 18:14 16:22 WBC 9.51 (4.8-10.8) K/uL RBC 2.86 L (4.2-5.4) M/uL Hgb 9.2 L (12.0-16.0) g/dL Hct 27.5 L (37-47) % MCV 96.2 (80-100) fL MCH 32.2 (25-34) pg MCHC 33.5 (32-36) g/dL RDW Std Deviation 61.9 H (36.4-46.3) fL RDW Coeff of Chikis 17.7 H (11.5-14.5) % Plt Count 293 (130-400) K/uL MPV 8.8 (7.4-10.4) fL Immature Gran % (Auto) 0.2 % Neut % (Auto) 69.3 % Lymph % (Auto) 21.3 % [place] % (Auto) 7.2 % Eos % (Auto) 1.5 % Baso % (Auto) 0.5 % Immature Gran # (Auto) 0.02 (0.00-0.02) K/uL Neut # (Auto) 6.59 H (1.4-6.5) K/uL Lymph # (Auto) 2.03 (1.2-3.4) K/uL [place] # (Auto) 0.68 H (0.11-0.59) K/uL Eos # (Auto) 0.14 (0-0.5) K/uL Baso # (Auto) 0.05 (0-0.2) K/uL Absolute Nucleated RBC 0.03 H (0-0) K/uL Nucleated RBC % (auto) 0.3 % PT (9.0-12.0) Seconds INR (0.9-1.1) Sodium (136-145) mmol/L Potassium (3.5-5.1) mmol/L Chloride (98-107) mmol/L Carbon Dioxide (21-32) mmol/L Anion Gap (3-11) BUN (7-18) mg/dl Creatinine (0.6-1.2) mg/dl Est Cr Clr Drug Dosing ml/min Est GFR ( Amer) Est GFR (Non-Af Amer) BUN/Creatinine Ratio (10-20) Glucose (70-99) mg/dl POC Glucose 116 H 86 (70-99) Calcium (8.5-10.1) mg/dl Magnesium (1.8-2.4) mg/dl Urine Color Urine Appearance (Clear) Urine pH (4.5-7.5) Ur Specific [place] (1.000-1.030) Urine Protein (Negative) Urine Glucose (UA) (Negative) Urine Ketones (Negative) Urine Blood (Negative) Urine Nitrite (Negative) Urine Bilirubin (Negative) Urine Urobilinogen (Negative) Ur Leukocyte Esterase (Negative) Urine WBC (Auto) (0-5) /hpf Urine RBC (Auto) (0-4) /hpf U Hyaline Cast (Auto) (0-5) /lpf U Epithel Cells (Auto) (0-5) /lpf Urine Bacteria (Auto) (Negative) 03/12/19 03/12/19 03/12/19 Range/Units 11:35 07:55 07:05 WBC (4.8-10.8) K/uL RBC (4.2-5.4) M/uL Hgb (12.0-16.0) g/dL Hct (37-47) % MCV (80-100) fL MCH (25-34) pg MCHC (32-36) g/dL RDW Std Deviation (36.4-46.3) fL RDW Coeff of Chikis (11.5-14.5) % Plt Count (130-400) K/uL MPV (7.4-10.4) fL Immature Gran % (Auto) % Neut % (Auto) % Lymph % (Auto) % [place] % (Auto) % Eos % (Auto) % Baso % (Auto) % Immature Gran # (Auto) (0.00-0.02) K/uL Neut # (Auto) (1.4-6.5) K/uL Lymph # (Auto) (1.2-3.4) K/uL [place] # (Auto) (0.11-0.59) K/uL Eos # (Auto) (0-0.5) K/uL Baso # (Auto) (0-0.2) K/uL Absolute Nucleated RBC (0-0) K/uL Nucleated RBC % (auto) % PT (9.0-12.0) Seconds INR (0.9-1.1) Sodium 140 (136-145) mmol/L Potassium 3.9 (3.5-5.1) mmol/L Chloride 110 H (98-107) mmol/L Carbon Dioxide 23 (21-32) mmol/L Anion Gap 7.0 (3-11) BUN 24 H (7-18) mg/dl Creatinine 1.08 (0.6-1.2) mg/dl Est Cr Clr Drug Dosing 48.7 ml/min Est GFR ( Amer) 58.2 Est GFR (Non-Af Amer) 50.2 BUN/Creatinine Ratio 21.8 H (10-20) Glucose 100 H (70-99) mg/dl POC Glucose 98 161 H (70-99) Calcium 8.6 (8.5-10.1) mg/dl Magnesium 2.0 (1.8-2.4) mg/dl Urine Color Urine Appearance (Clear) Urine pH (4.5-7.5) Ur Specific [place] (1.000-1.030) Urine Protein (Negative) Urine Glucose (UA) (Negative) Urine Ketones (Negative) Urine Blood (Negative) Urine Nitrite (Negative) Urine Bilirubin (Negative) Urine Urobilinogen (Negative) Ur Leukocyte Esterase (Negative) Urine WBC (Auto) (0-5) /hpf Urine RBC (Auto) (0-4) /hpf U Hyaline Cast (Auto) (0-5) /lpf U Epithel Cells (Auto) (0-5) /lpf Urine Bacteria (Auto) (Negative) 03/12/19 03/12/19 03/11/19 Range/Units 07:05 07:05 23:51 WBC 9.05 (4.8-10.8) K/uL RBC 2.65 L (4.2-5.4) M/uL Hgb 8.4 L (12.0-16.0) g/dL Hct 25.0 L (37-47) % MCV 94.3 D (80-100) fL MCH 31.7 (25-34) pg MCHC 33.6 (32-36) g/dL RDW Std Deviation 62.2 H (36.4-46.3) fL RDW Coeff of Chikis 18.0 H (11.5-14.5) % Plt Count 272 (130-400) K/uL MPV 8.2 (7.4-10.4) fL Immature Gran % (Auto) % Neut % (Auto) % Lymph % (Auto) % [place] % (Auto) % Eos % (Auto) % Baso % (Auto) % Immature Gran # (Auto) (0.00-0.02) K/uL Neut # (Auto) (1.4-6.5) K/uL Lymph # (Auto) (1.2-3.4) K/uL [place] # (Auto) (0.11-0.59) K/uL Eos # (Auto) (0-0.5) K/uL Baso # (Auto) (0-0.2) K/uL Absolute Nucleated RBC (0-0) K/uL Nucleated RBC % (auto) % PT 12.8 H (9.0-12.0) Seconds INR 1.3 H (0.9-1.1) Sodium (136-145) mmol/L Potassium (3.5-5.1) mmol/L Chloride (98-107) mmol/L Carbon Dioxide (21-32) mmol/L Anion Gap (3-11) BUN (7-18) mg/dl Creatinine (0.6-1.2) mg/dl Est Cr Clr Drug Dosing ml/min Est GFR ( Amer) Est GFR (Non-Af Amer) BUN/Creatinine Ratio (10-20) Glucose (70-99) mg/dl POC Glucose (70-99) Calcium (8.5-10.1) mg/dl Magnesium (1.8-2.4) mg/dl Urine Color Yellow Urine Appearance Clear (Clear) Urine pH 5.5 (4.5-7.5) Ur Specific [place] 1.016 (1.000-1.030) Urine Protein Negative (Negative) Urine Glucose (UA) Negative (Negative) Urine Ketones Negative (Negative) Urine Blood 1+ H (Negative) Urine Nitrite Negative (Negative) Urine Bilirubin Negative (Negative) Urine Urobilinogen Negative (Negative) Ur Leukocyte Esterase Trace H (Negative) Urine WBC (Auto) 5-10 H (0-5) /hpf Urine RBC (Auto) 5-10 H (0-4) /hpf U Hyaline Cast (Auto) 1-5 (0-5) /lpf U Epithel Cells (Auto) >30 H (0-5) /lpf Urine Bacteria (Auto) Negative (Negative) 03/11/19 Range/Units 23:09 WBC (4.8-10.8) K/uL RBC (4.2-5.4) M/uL Hgb 8.9 L (12.0-16.0) g/dL Hct 26.5 L (37-47) % MCV (80-100) fL MCH (25-34) pg MCHC (32-36) g/dL RDW Std Deviation (36.4-46.3) fL RDW Coeff of Chikis (11.5-14.5) % Plt Count (130-400) K/uL MPV (7.4-10.4) fL Immature Gran % (Auto) % Neut % (Auto) % Lymph % (Auto) % [place] % (Auto) % Eos % (Auto) % Baso % (Auto) % Immature Gran # (Auto) (0.00-0.02) K/uL Neut # (Auto) (1.4-6.5) K/uL Lymph # (Auto) (1.2-3.4) K/uL [place] # (Auto) (0.11-0.59) K/uL Eos # (Auto) (0-0.5) K/uL Baso # (Auto) (0-0.2) K/uL Absolute Nucleated RBC (0-0) K/uL Nucleated RBC % (auto) % PT (9.0-12.0) Seconds INR (0.9-1.1) Sodium (136-145) mmol/L Potassium (3.5-5.1) mmol/L Chloride (98-107) mmol/L Carbon Dioxide (21-32) mmol/L Anion Gap (3-11) BUN (7-18) mg/dl Creatinine (0.6-1.2) mg/dl Est Cr Clr Drug Dosing ml/min Est GFR ( Amer) Est GFR (Non-Af Amer) BUN/Creatinine Ratio (10-20) Glucose (70-99) mg/dl POC Glucose (70-99) Calcium (8.5-10.1) mg/dl Magnesium (1.8-2.4) mg/dl Urine Color Urine Appearance (Clear) Urine pH (4.5-7.5) Ur Specific [place] (1.000-1.030) Urine Protein (Negative) Urine Glucose (UA) (Negative) Urine Ketones (Negative) Urine Blood (Negative) Urine Nitrite (Negative) Urine Bilirubin (Negative) Urine Urobilinogen (Negative) Ur Leukocyte Esterase (Negative) Urine WBC (Auto) (0-5) /hpf Urine RBC (Auto) (0-4) /hpf U Hyaline Cast (Auto) (0-5) /lpf U Epithel Cells (Auto) (0-5) /lpf Urine Bacteria (Auto) (Negative) Medications Administered Current Inpatient Medications Acetaminophen (Tylenol) 650 mg PO Q4H PRN PRN Reason: Moderate Pain Stop: 04/11/19 16:13 Last Admin: 03/12/19 16:29 Dose: 650 mg Documented by: Artificial Tears (Artificial Tears) 1 drops OP TID GABBY Stop: 04/10/19 13:59 Last Admin: 03/12/19 20:47 Dose: 1 drops Documented by: Aspirin (Ecotrin Ectab) 81 mg PO DAILY GABBY Stop: 04/11/19 08:59 Last Admin: 03/12/19 08:00 Dose: 81 mg Documented by: Dextrose (Dextrose 50%) 25 - 50 ml IV UD PRN; Protocol PRN Reason: Hypoglycemia Protocol Stop: 04/10/19 12:55 Glucagon (Glucagen) 1 mg SQ UD PRN; Protocol PRN Reason: Hypoglycemia Protocol Stop: 04/10/19 12:55 Glucose (Glucose 40%) 15 - 30 gm PO UD PRN; Protocol PRN Reason: Hypoglycemia Protocol Stop: 04/10/19 12:55 Glucose (Dex4 Glucose) 4 - 8 tabs PO UD PRN; Protocol PRN Reason: Hypoglycemia Protocol Stop: 04/10/19 12:55 Sodium Chloride (Nss) 250 mls @ 15 mls/hr IV .[id number] PRN PRN Reason: For Transfusion Stop: 04/10/19 10:27 Insulin Aspart (Novolog Flexpen) 0 units SC ACHS [facility] Stop: 04/10/19 16:29 Last Admin: 03/12/19 20:50 Dose: Not Given Documented by: Insulin Glargine (Lantus Solostar Pen) 0 units SC HS GABBY; Protocol Stop: 04/10/19 20:59 Last Admin: 03/12/19 20:48 Dose: 10 units Documented by: Miscellaneous (Carbohydrates For Hypoglycemia) 15 - 30 gm PO UD PRN PRN Reason: Hypoglycemia Treatment Stop: 04/10/19 12:55 Ondansetron HCl (Zofran) 4 mg IV Q6H PRN PRN Reason: Nausea Stop: 04/10/19 12:55 Oxycodone/Acetaminophen (Percocet 5mg/325mg) 1 tab PO Q4H PRN PRN Reason: pain Stop: 03/25/19 14:35 Pantoprazole Sodium (Protonix) 40 mg PO QAM [facility] Stop: 04/12/19 08:59 Rosuvastatin Calcium (Crestor) 40 mg PO HS GABBY Stop: 04/11/19 20:59 Last Admin: 03/12/19 20:47 Dose: 40 mg Documented by: Verapamil HCl (Calan Sr) 240 mg PO HS [facility] Stop: 04/11/19 20:59 Last Admin: 03/12/19 20:47 Dose: 240 mg Documented by: (1) GI (gastrointestinal bleed) GI bleed type/associated pathology: unspecified gastrointestinal hemorrhage type Qualified Code(s): K92.2 - Gastrointestinal hemorrhage, unspecified
[2019-03-12] MEDS: ACETAMINOPHEN 325 MG TAB PO PRN (16:29)
[2019-03-12 18:30] LABS: Basophils # (auto) 0.05 K/uL (0-0.2); Basophils % (auto) 0.5 %; Eosinophils # (auto) 0.14 K/uL (0-0.5); Eosinophils % (auto) 1.5 %; Hematocrit (blood only) 27.5 % (37-47); Hemoglobin 9.2 g/dL (12.0-16.0); Immature Granulocytes # (auto) 0.02 K/uL (0.00-0.02); Immature Granulocytes % (auto) 0.2 %; Lymphocytes # (auto) 2.03 K/uL (1.2-3.4); Lymphocytes % (auto) 21.3 %; Mean Corpuscular Hemoglobin 32.2 pg (25-34); Mean Corpuscular Hgb Conc 33.5 g/dL (32-36); Mean Corpuscular Volume 96.2 fL (80-100); Mean Platelet Volume 8.8 fL (7.4-10.4); Monocytes # (auto) 0.68 K/uL (0.11-0.59); Monocytes % (auto) 7.2 %; Neutrophils # (auto) 6.59 K/uL (1.4-6.5); Neutrophils % (auto) 69.3 %; Nucleated RBC # (auto) 0.03 K/uL (0-0); Nucleated RBC % (auto) 0.3 %; Platelet Count 293 K/uL (130-400); RDW Coefficient of Variation 17.7 % (11.5-14.5); RDW Standard Deviation 61.9 fL (36.4-46.3); Red Blood Count 2.86 M/uL (4.2-5.4); White Blood Count 9.51 K/uL (4.8-10.8)
[2019-03-12] MEDS ORDERED: POTASSIUM CHLORIDE 10 MEQ TABCR PO STA (19:45)
--- NOTE | 2019-03-12 19:48 | Hospitalist Progress Note ---
Date of Service March 12, 2019 Subjective Made aware by RN of Sharon. quinn on the monitor noted around 5:30 PM. Cardiac rate 90s as per RN No other complaints as per RN. AP New onset A. fib Continue CCB for rate control. Cardiology consult in a.m. RE new onset A. quinn (Patient known to [facility] [place]) Will relay to AM provider. Results & Data Vital Signs (Past 12 Hours) Vital Signs Temp Pulse Pulse Pulse Resp BP BP 03/12/19 19:15 36.9 C 85 18 109/61 03/12/19 16:00 95 H 03/12/19 15:15 36.8 C 68 16 108/68 03/12/19 11:20 37.1 C 75 16 108/61 Pulse Ox 03/12/19 19:15 92 03/12/19 16:00 03/12/19 15:15 97 03/12/19 11:20 96
[2019-03-12] MEDS: ROSUVASTATIN CALCIUM 20 MG TAB PO SCH (20:47)
[2019-03-12] MEDS: INSULIN GLARGINE SOLOSTAR 100 UNITS/ML 3 ML PEN SC SCH (20:48)
[2019-03-12] MEDS ORDERED: VERAPAMIL HCL 240 MG TABCR PO SCH (21:00)
[2019-03-13 06:11] LABS: Basophils # (auto) 0.07 K/uL (0-0.2); Basophils % (auto) 0.8 %; Eosinophils # (auto) 0.19 K/uL (0-0.5); Eosinophils % (auto) 2.2 %; Hematocrit (blood only) 27.3 % (37-47); Hemoglobin 9.2 g/dL (12.0-16.0); Immature Granulocytes # (auto) 0.03 K/uL (0.00-0.02); Immature Granulocytes % (auto) 0.3 %; Lymphocytes # (auto) 1.77 K/uL (1.2-3.4); Lymphocytes % (auto) 20.4 %; Mean Corpuscular Hemoglobin 32.4 pg (25-34); Mean Corpuscular Hgb Conc 33.7 g/dL (32-36); Mean Corpuscular Volume 96.1 fL (80-100); Mean Platelet Volume 8.5 fL (7.4-10.4); Monocytes # (auto) 0.73 K/uL (0.11-0.59); Monocytes % (auto) 8.4 %; Neutrophils % (auto) 67.9 %; Platelet Count 314 K/uL (130-400); RDW Coefficient of Variation 17.7 % (11.5-14.5); RDW Standard Deviation 61.6 fL (36.4-46.3); Red Blood Count 2.84 M/uL (4.2-5.4); White Blood Count 8.69 K/uL (4.8-10.8)
[2019-03-13 06:39] LABS: BUN Creatinine Ratio 16.6 (10-20); Calcium 8.9 mg/dl (8.5-10.1); Creatinine Clr Calc Pharmacy 44.9 ml/min; Est GFR (African American) 53.9; Est GFR (Non-African American) 46.5; Magnesium 1.9 mg/dl (1.8-2.4); Potassium 4.1 mmol/L (3.5-5.1)
[2019-03-13 06:50] LABS: Thyroid Stimulating Hormone 16.8 uIu/ml (0.300-4.500)
[2019-03-13 07:02] LABS: T4 Free Thyroxine 0.8 ng/dl (0.8-1.6)
[2019-03-13] MEDS: INSULIN ASPART 100 UNITS/ML 3 ML PEN SC SCH ×4 (08:17→20:47)
[2019-03-13] MEDS: ASPIRIN 81 MG ECTAB PO SCH (08:22)
[2019-03-13] MEDS: ARTIFICIAL TEARS OP SCH ×3 (08:22→20:23)
--- NOTE | 2019-03-13 08:22 | Hospitalist Progress Note ---
Date of Service March 13, 2019 Assessment & Plan (1) GI (gastrointestinal bleed): GI bleed due to anticoagulant therapy Patient had multiple episodes of loose stools with ady blood, orthostatic lightheadedness and 2 syncopal episodes Likely lower GI bleed, such as diverticular On warfarin after right TKA performed on February 26, 2019 Warfarin held, discussed with the patient that she will need SCDs as DVT prophylaxis, patient plans to purchase her own SCDs Patient also takes aspirin for CAD GI was consulted, no plan for scope at this time, will follow-up as outpatient Patient was started on IV PPI, now switched to p.o. PPI BID, received vitamin K to reverse warfarin GI bleed seemed to be resolved, patient had several BMs while inpt which were nonbloody (2) Acute blood loss anemia: Secondary to GI bleed and warfarin use, as above Afib -new onset, now converted back to NSR -can not anticoagulated at his time d/t GI bleed -rate controlled w/ verapamil (half home dose to help w/ BP), metoprolol started Cardiology was consulted, heaven. input (3) CAD (coronary artery disease): Status post CABG about 5 years ago Currently no anginal symptoms, on aspirin At home also takes verapamil which was held on admission due to hypotension, resumed last night, but d/t hypotension dose decreased to half and pt was started on metoprolol as well Statin held on admission, will resume (4) Diastolic heart failure: At this time we well compensated Need to monitor fluid and cardiopulmonary status closely (5) HTN (hypertension): At home takes verapamil and lisinopril, held due to GI bleed verapamil resumed (half dose as mentioned above) Lisinopril,plan to resume prior to discharge (6) Anticoagulated: Patient on warfarin due to recent TKA, performed on February 26 We will need to hold warfarin for now, and she will be using SCDs for DVT pr ophylaxis [place] now removed by Orthoped. service, orthopedics following (7) Sleep apnea: On CPAP with 1 L oxygen at bedtime, will continue (8) Diabetes mellitus, type II: Hemoglobin A1c 6.5, in January 2019 At home on Prandin and Trulicity, which were held on admission Lantus, NovoLog SSI We will continue to monitor and adjust medications as necessary (9) Hypothyroidism: Continue home levothyroxine (10) Stage III chronic kidney disease: Current creatinine 1.15 No current issues We will continue to monitor renal function closely We will try to avoid nephrotoxic agents such as contrast and NSAIDs Subjective Patient developed A. fib last evening, does not have any history of A. fib, started back on her verapamil and felt weak after getting medication. She converted back to sinus rhythm today. She had 2 bowel movements today, both nonbloody. Currently she is lying in bed, feels weak, and has poor appetite. She denies any fevers, chills, chest pain, palpitations, shortness of breath. Says she did not have any symptoms with A. fib and it was only noticed because she was on telemetry. She had mariano removed from her right knee incision today. Review of Systems Constitutional: + fatigue and + malaise; no fever and no chills Respiratory: no cough, no chest congestion and no dyspnea Cardiovascular: no chest pain, no palpitations and no edema Gastrointestinal: no abdominal pain, no nausea and no vomiting Physical Exam Constitutional: well developed, well nourished and + ill appearing; no acute distress Eyes: PERRL, conjunctivae normal, anicteric sclerae ENMT: external ear and nose normal, oropharynx normal Neck: supple Respiratory: normal respiratory effort, lungs clear to auscultation no labored breathing Auscultation: no wheezes Cardiovascular: RRR, no murmur, no edema Chest (Breasts): Chest: normal inspection of chest Gastrointestinal (Abdomen): Inspection/Auscultation: abdomen normal to inspection and normal bowel sounds; abdomen not distended Percussion/Palpation: abdomen soft; abdomen nontender Musculoskeletal: Head/Neck/Chest: normocephalic, head atraumatic and neck supple Knee: + knee abnormal to inspection (s/p right TKA, mariano removed, clean dressings applied over incision) Skin: no rashes, warm and dry Neurologic: PERRL, EOMI, accommodation nl, no face palsy, no dysarthria Psychiatric: A+Ox3, euthymic affect Speech: normal rate/rhythm/volume of speech Genitourinary: no CVA tenderness Lymphatic: no lymphedema and no cervical lymphadenopathy Results & Data Vital Signs (Past 12 Hours) Vital Signs Temp Pulse Pulse Resp BP Pulse Ox 03/13/19 04:22 37.1 C 55 L 19 107/64 97 03/13/19 01:30 82 03/12/19 23:31 37.3 C 84 20 109/70 97 Laboratory Results 03/13/19 03/13/19 03/13/19 Range/Units 07:38 05:48 05:48 WBC 8.69 (4.8-10.8) K/uL RBC 2.84 L (4.2-5.4) M/uL Hgb 9.2 L (12.0-16.0) g/dL Hct 27.3 L (37-47) % MCV 96.1 (80-100) fL MCH 32.4 (25-34) pg MCHC 33.7 (32-36) g/dL RDW Std Deviation 61.6 H (36.4-46.3) fL RDW Coeff of Chikis 17.7 H (11.5-14.5) % Plt Count 314 (130-400) K/uL MPV 8.5 (7.4-10.4) fL Immature Gran % (Auto) 0.3 % Neut % (Auto) 67.9 % Lymph % (Auto) 20.4 % [place] % (Auto) 8.4 % Eos % (Auto) 2.2 % Baso % (Auto) 0.8 % Immature Gran # (Auto) 0.03 H (0.00-0.02) K/uL Neut # (Auto) 5.90 (1.4-6.5) K/uL Lymph # (Auto) 1.77 (1.2-3.4) K/uL [place] # (Auto) 0.73 H (0.11-0.59) K/uL Eos # (Auto) 0.19 (0-0.5) K/uL Baso # (Auto) 0.07 (0-0.2) K/uL Absolute Nucleated RBC (0-0) K/uL Nucleated RBC % (auto) % Sodium 141 (136-145) mmol/L Potassium 4.1 (3.5-5.1) mmol/L Chloride 111 H (98-107) mmol/L Carbon Dioxide 23 (21-32) mmol/L Anion Gap 7.0 (3-11) BUN 19 H (7-18) mg/dl Creatinine 1.15 (0.6-1.2) mg/dl Est Cr Clr Drug Dosing 44.9 ml/min Est GFR ( Amer) 53.9 Est GFR (Non-Af Amer) 46.5 BUN/Creatinine Ratio 16.6 (10-20) Glucose 136 H (70-99) mg/dl POC Glucose 130 H (70-99) Calcium 8.9 (8.5-10.1) mg/dl Magnesium 1.9 (1.8-2.4) mg/dl TSH 16.800 H (0.300-4.500) uIu/ml Free T4 0.80 (0.8-1.6) ng/dl 03/12/19 03/12/19 03/12/19 Range/Units 20:40 18:14 16:22 WBC 9.51 (4.8-10.8) K/uL RBC 2.86 L (4.2-5.4) M/uL Hgb 9.2 L (12.0-16.0) g/dL Hct 27.5 L (37-47) % MCV 96.2 (80-100) fL MCH 32.2 (25-34) pg MCHC 33.5 (32-36) g/dL RDW Std Deviation 61.9 H (36.4-46.3) fL RDW Coeff of Chikis 17.7 H (11.5-14.5) % Plt Count 293 (130-400) K/uL MPV 8.8 (7.4-10.4) fL Immature Gran % (Auto) 0.2 % Neut % (Auto) 69.3 % Lymph % (Auto) 21.3 % [place] % (Auto) 7.2 % Eos % (Auto) 1.5 % Baso % (Auto) 0.5 % Immature Gran # (Auto) 0.02 (0.00-0.02) K/uL Neut # (Auto) 6.59 H (1.4-6.5) K/uL Lymph # (Auto) 2.03 (1.2-3.4) K/uL [place] # (Auto) 0.68 H (0.11-0.59) K/uL Eos # (Auto) 0.14 (0-0.5) K/uL Baso # (Auto) 0.05 (0-0.2) K/uL Absolute Nucleated RBC 0.03 H (0-0) K/uL Nucleated RBC % (auto) 0.3 % Sodium (136-145) mmol/L Potassium (3.5-5.1) mmol/L Chloride (98-107) mmol/L Carbon Dioxide (21-32) mmol/L Anion Gap (3-11) BUN (7-18) mg/dl Creatinine (0.6-1.2) mg/dl Est Cr Clr Drug Dosing ml/min Est GFR ( Amer) Est GFR (Non-Af Amer) BUN/Creatinine Ratio (10-20) Glucose (70-99) mg/dl POC Glucose 116 H 86 (70-99) Calcium (8.5-10.1) mg/dl Magnesium (1.8-2.4) mg/dl TSH (0.300-4.500) uIu/ml Free T4 (0.8-1.6) ng/dl 03/12/19 Range/Units 11:35 WBC (4.8-10.8) K/uL RBC (4.2-5.4) M/uL Hgb (12.0-16.0) g/dL Hct (37-47) % MCV (80-100) fL MCH (25-34) pg MCHC (32-36) g/dL RDW Std Deviation (36.4-46.3) fL RDW Coeff of Chikis (11.5-14.5) % Plt Count (130-400) K/uL MPV (7.4-10.4) fL Immature Gran % (Auto) % Neut % (Auto) % Lymph % (Auto) % [place] % (Auto) % Eos % (Auto) % Baso % (Auto) % Immature Gran # (Auto) (0.00-0.02) K/uL Neut # (Auto) (1.4-6.5) K/uL Lymph # (Auto) (1.2-3.4) K/uL [place] # (Auto) (0.11-0.59) K/uL Eos # (Auto) (0-0.5) K/uL Baso # (Auto) (0-0.2) K/uL Absolute Nucleated RBC (0-0) K/uL Nucleated RBC % (auto) % Sodium (136-145) mmol/L Potassium (3.5-5.1) mmol/L Chloride (98-107) mmol/L Carbon Dioxide (21-32) mmol/L Anion Gap (3-11) BUN (7-18) mg/dl Creatinine (0.6-1.2) mg/dl Est Cr Clr Drug Dosing ml/min Est GFR ( Amer) Est GFR (Non-Af Amer) BUN/Creatinine Ratio (10-20) Glucose (70-99) mg/dl POC Glucose 98 (70-99) Calcium (8.5-10.1) mg/dl Magnesium (1.8-2.4) mg/dl TSH (0.300-4.500) uIu/ml Free T4 (0.8-1.6) ng/dl Diagnostic Findings ECG March 12,:04, A. fib with VR 87 ECG March 1314;10, normal sinus rhythm, heart rate 69 Medications Administered Current Inpatient Medications Acetaminophen (Tylenol) 650 mg PO Q4H PRN PRN Reason: Moderate Pain Stop: 04/11/19 16:13 Last Admin: 03/12/19 16:29 Dose: 650 mg Documented by: Artificial Tears (Artificial Tears) 1 drops OP TID GABBY Stop: 04/10/19 13:59 Last Admin: 03/12/19 20:47 Dose: 1 drops Documented by: Aspirin (Ecotrin Ectab) 81 mg PO DAILY [facility] Stop: 04/11/19 08:59 Last Admin: 03/12/19 08:00 Dose: 81 mg Documented by: Dextrose (Dextrose 50%) 25 - 50 ml IV UD PRN; Protocol PRN Reason: Hypoglycemia Protocol Stop: 04/10/19 12:55 Glucagon (Glucagen) 1 mg SQ UD PRN; Protocol PRN Reason: Hypoglycemia Protocol Stop: 04/10/19 12:55 Glucose (Glucose 40%) 15 - 30 gm PO UD PRN; Protocol PRN Reason: Hypoglycemia Protocol Stop: 04/10/19 12:55 Glucose (Dex4 Glucose) 4 - 8 tabs PO UD PRN; Protocol PRN Reason: Hypoglycemia Protocol Stop: 04/10/19 12:55 Sodium Chloride (Nss) 250 mls @ 15 mls/hr IV .[id number] PRN PRN Reason: For Transfusion Stop: 04/10/19 10:27 Insulin Aspart (Novolog Flexpen) 0 units SC ACHS [facility] Stop: 04/10/19 16:29 Last Admin: 03/13/19 08:17 Dose: 2 units Documented by: Insulin Glargine (Lantus Solostar Pen) 0 units SC HS [facility]; Protocol Stop: 04/10/19 20:59 Last Admin: 03/12/19 20:48 Dose: 10 units Documented by: Miscellaneous (Carbohydrates For Hypoglycemia) 15 - 30 gm PO UD PRN PRN Reason: Hypoglycemia Treatment Stop: 04/10/19 12:55 Ondansetron HCl (Zofran) 4 mg IV Q6H PRN PRN Reason: Nausea Stop: 04/10/19 12:55 Oxycodone/Acetaminophen (Percocet 5mg/325mg) 1 tab PO Q4H PRN PRN Reason: pain Stop: 03/25/19 14:35 Pantoprazole Sodium (Protonix) [facility] [place] Stop: 04/12/19 08:59 Rosuvastatin Calcium (Crestor) 40 mg PO [facility] Stop: 04/11/19 20:59 Last Admin: 03/12/19 20:47 Dose: 40 mg Documented by: Verapamil HCl (Calan Sr) 240 mg PO HS [facility] Stop: 04/11/19 20:59 Last Admin: 03/12/19 20:47 Dose: 240 mg Documented by: (1) GI (gastrointestinal bleed) GI bleed type/associated pathology: unspecified gastrointestinal hemorrhage type Qualified Code(s): K92.2 - Gastrointestinal hemorrhage, unspecified
[2019-03-13] MEDS ORDERED: PANTOprazole 40 MG TAB PO SCH (09:00)
--- NOTE | 2019-03-13 09:17 | Gastroenterology Progress Note ---
Date of Service March 13, 2019 Assessment & Plan (1) Status post total knee replacement, right: (2) Syncope: (3) GI (gastrointestinal bleed): Pt is a 73 y/o female who presented w syncope, lower abd cramping, and bloody diarrhea. She recently had R TKR on 02/26, DC'd home on Coumadin for DVT prophylaxis and was also taking baby ASA. INR noted to be 3 on presentation. H/H 02/14 (baseline Hgb 11, 2 weeks ago). BUN elevated at 32. Likely GI bleeding in setting of anticoagulant and ASA use. H/H stable, BUN/Cr normalized, INR down to 1.3. She hasn't had any more signs of bloody diarrhea since admitted. Tolerating regular diet well - Changed to PPI PO BID - Monitor H/H closely; transfuse prn - No indication for endoscopic eval at this time since no more signs of GI bleeding. She however developed Afib and may be started on Heparin gtt, awaiting Cardiology eval. GI will sign off but pls recall if she develops any recurrence of GI bleeding. Supervising Physician Co-Signing Physician Notes Pt seen and examined with LJ Morelos. Her note reflects my exam and findings. I agree with her impression and plan. H/H stable. No signs of continued bleeding. Patient should stay on daily PPI as out patient. Dax Hicsk M.D. Subjective Pt developed Afib, denies any CP, SOB symptoms. Going to be evaluated by Cardiology this AM. Noted H/H stable. She had BMs last night and this AM which was brown in color. Denies any abd pain, n/v symptoms. Review of Systems Review of Systems: All systems reviewed & are unremarkable except as noted in HPI & below Physical Exam Constitutional: WD/WN, vitals as above well groomed, cooperative and comfortable Eyes: PERRL, conjunctivae normal, anicteric sclerae ENMT: external ear and nose normal, oropharynx normal Respiratory: normal respiratory effort, lungs clear to auscultation Cardiovascular: RRR, no murmur, no edema Gastrointestinal (Abdomen): normal bowel sounds, soft, nontender, no hepatosplenomegaly Skin: no rashes, warm and dry Neurologic: Motor/Sensory: no asterixis Psychiatric: A+Ox3, euthymic affect Lymphatic: no lymphedema Results & Data Vital Signs (Past 12 Hours) Vital Signs Temp Pulse Pulse Resp BP Pulse Ox 03/13/19 08:37 37.1 C 85 12 108/66 97 03/13/19 04:22 37.1 C 55 L 19 107/64 97 03/13/19 01:30 82 03/12/19 23:31 37.3 C 84 20 109/70 97 (1) GI (gastrointestinal bleed) GI bleed type/associated pathology: unspecified gastrointestinal hemorrhage type Qualified Code(s): K92.2 - Gastrointestinal hemorrhage, unspecified (2) Syncope Syncope type: unspecified Qualified Code(s): R55 - Syncope and collapse
--- NOTE | 2019-03-13 09:26 | Cardiology Consultation ---
Date of Consultation March 13, 2019 Assessment & Plan (1) Acute blood loss anemia: (2) History of heart bypass surgery: (3) Sleep apnea: (4) Diastolic heart failure: (5) Atrial fibrillation with RVR: The patient's GI bleeding has resolved after anticoagulation was reversed. GI service plans no additional testing. They are not enthusiastic about restarting anticoagulation however, if absolutely necessary at this time then they would agree. This presents a conundrum regarding this patient's atrial fibrillation and unless she converts spontaneously, proceeding to cardioversion this admission is unlikely. For now we will continue with aspirin only. She was restarted on her home verapamil last evening but continues to have high heart rates. Going to decrease her verapamil dosage due to low blood pressure and add a low dose of metoprolol. History of Present Illness Attending Physician: Doyle Talavera MD History of Present Illness This is a 73-year-old female who earlier this month underwent her second total knee replacement. She was placed on Coumadin as an outpatient following that surgery. On the day of admission she had several episodes of bright red blood per rectum and diarrhea. She eventually had a syncopal episode. She was admitted to the hospital and her INR was 3 on admission. The Coumadin was reversed following which her bleeding completely resolved and she has been having brown stools. Unfortunately, late yesterday evening she was noted to be in new atrial fibrillation. She was on verapamil as an outpatient which was restarted. She remains in a atrial fibrillation this morning with at times having high heart rates. She denies chest pain or shortness of breath. She has had no dizziness or lightheadedness. The patient is treated for hypertension and diastolic dysfunction as an outpatient. She has had previous coronary artery bypass surgery for left main trunk disease which on an additional cardiac catheterization was severe but subsequently had improvement and unfortunately she had already gone through bypass surgery receiving a PALOMINO to the LAD which never matured. She is a diabetic. Past medical history: 1.Chronic dilated ascending aorta. 2.Prior coronary bypass grafting for ostial left main disease, possibly inflammatory with resolve on repeat cardiac catheterization. Initial surgery 2013. Followup cardiac catheterization May 2014 demonstrating 30% residual narrowing of the left main with occluded PALOMINO graft to the LAD. 3.History of long-standing labile hypertension. 4.History of diastolic left ventricular dysfunction. 5.Obstructive sleep apnea on CPAP supplementation. 6.History of asthmatic lung disease. 7.History of hyperlipidemia, on therapy Allergies Allergy/AdvReac Type Severity Reaction Status Date / Time Bactrim Allergy Severe HIVES, Verified 09/27/17 10:27 ITCHING, ANAPHYLAXIS Sulfa (Sulfonamide Allergy Severe "BACTRIM" Verified 03/11/19 10:38 Antibiotics) HIVES, ITCHING AND ANAPHYLAXIS sulfamethoxazole Allergy Severe HIVES, Verified 03/11/19 10:38 ITCHING, ANAPHYLAXIS trimethoprim Allergy Severe HIVES, Verified 03/11/19 10:38 ITCHING, ANAPHYLAXIS cat dander Allergy Intermediate AND DOGS - Verified 03/11/19 10:38 SNEEZING cortisone Allergy Intermediate HIVES Verified 03/11/19 10:38 Penicillins Allergy Intermediate HIVES Verified 03/11/19 10:38 Chlorine Allergy Intermediate ECZEMA Uncoded 03/11/19 10:38 Home Medications Home Medications Medication Instructions Recorded Confirmed Type biotin 2,500 mcg capsule 5,000 mcg PO QAM cap 01/03/19 03/11/19 History lansoprazole 30 mg capsule,delayed 30 mg PO QAM cap 01/03/19 03/11/19 History release levothyroxine 125 mcg tablet 125 mcg PO QAM tab 01/03/19 03/11/19 History lisinopril 10 mg tablet 10 mg PO HS tab 01/03/19 03/11/19 History magnesium 400 mg (as magnesium 400 mg PO QDL cap 01/03/19 03/11/19 History oxide) capsule repaglinide 1 mg tablet 1 mg PO TID PRN tab 01/03/19 03/11/19 History verapamil ER (SR) 240 mg 240 mg PO HS tab 01/03/19 03/11/19 History tablet,extended release Lantus U-100 Insulin 22 unit SUBCUT HS 01/28/19 03/11/19 History Refresh Optive Mateusz-3 (PF) 1 drp OPHTHALMIC (EYE) TID 01/28/19 03/11/19 History aspirin [Aspir-81] 81 mg PO DAILY 01/28/19 03/11/19 History cholecalciferol (vitamin D3) 400 unit PO QAM 01/28/19 03/11/19 History [Vitamin D3] furosemide 20 mg PO QAM 01/28/19 03/11/19 History rosuvastatin [Crestor] 40 mg PO HS 01/28/19 03/11/19 History valacyclovir 500 mg PO QAM 01/28/19 03/11/19 History nitrofurantoin 100 mg PO HS #30 cap 02/14/19 03/11/19 Rx monohydrate/macrocrystals 100 mg capsule Probiotic 3,000 mmu cells PO QDL 02/26/19 03/11/19 History acetaminophen [Tylenol Extra 500 mg PO Q4 PRN 02/26/19 03/11/19 History Strength] multivitamin 1 tab PO QAM 02/26/19 03/11/19 History dulaglutide [Trulicity] 1.5 mg SUBCUT WK 03/11/19 03/11/19 History oxycodone-acetaminophen [Percocet] 1 - 2 tab PO Q4H PRN 03/11/19 03/11/19 History warfarin 4 mg PO HS 03/11/19 03/11/19 History Patient History Medical History Recurrent UTI (Chronic) Sleep apnea (Chronic) CPAP + 1L O2 HS Diastolic heart failure (Chronic) 2013 (subsequently had cardiac cath/blockage and CABG x 1) Degenerative disc disease (Chronic) History of skin cancer (Chronic) s/p resection Acid reflux (Chronic) occasional breakthrough Hiatal hernia (Chronic) CAD (coronary artery disease) (Chronic) CABG X 1- PALOMINO-LAD (2013) Obesity (Chronic) Hypothyroidism (Chronic) Dyslipidemia (Chronic) Diabetes mellitus, type II (Chronic) Osteoarthritis (Chronic) HTN (hypertension) (Chronic) Stage III chronic kidney disease (Chronic) Aortic aneurysm (Chronic) Anemia (Chronic) History of blood clots 2015 - LLE (s/p flight) ? superficial. Per patient, did not require long-term anticoagulation/no issues since Surgical History History of heart bypass surgery (Chronic) CABG X 1 (2013) History of varicose vein ligation and stripping (Chronic) B/L LE History of colonoscopy (Chronic) History of endoscopy (Chronic) History of cardiac cath (Chronic) 1999= NO STENTS 2013= NO STENTS, SUBSEQUENT CABG X 1 2014= NO STENTS History of eye surgery (Chronic) LASIK - LEFT History of cataract surgery (Chronic) R&L Status post total knee replacement, right (Chronic) History of surgery PLASTIC - "NECK LIFT" Family History Aunt Family history of diabetes mellitus Social History Preferred Language: Gambian Communication Ability: Effective 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 Physical Exam Physical Exam: General: no acute distress and stated age Head: normocephalic, no masses, lesions, tenderness or abnormalities Eyes: conjunctiva are pink and non-injected, sclera clear Neck: supple, no adenopathy, no bruits, normal jugular venous pulse, no hepatojugular reflux Chest: normal shape and normal respiratory effort Lungs: clear to auscultation and percussion Cardiac Exam: - irregular rate & rhythm, no murmurs gallops or rubs - normal S1, normal S2 Pulses: 2(+) throughout Abdomen: abdomen soft, non-tender, no abnormal masses and no hepatosplenomegaly Musculoskeletal: no gait disturbance, no joint inflammation, no deforming arthritis Extremities: no edema and no cyanosis Neuro: grossly normal exam Results & Data Vital Signs (Past 12 Hours) Vital Signs Temp Pulse Pulse Resp BP Pulse Ox 03/13/19 08:37 37.1 C 85 12 108/66 97 03/13/19 04:22 37.1 C 55 L 19 107/64 97 03/13/19 01:30 82 03/12/19 23:31 37.3 C 84 20 109/70 97 Laboratory Results Laboratory Results - last 24 hr 03/12/19 03/12/19 03/12/19 11:35 16:22 18:14 WBC 9.51 RBC 2.86 L Hgb 9.2 L Hct 27.5 L MCV 96.2 MCH 32.2 MCHC 33.5 RDW Std Deviation 61.9 H RDW Coeff of Chiiks 17.7 H Plt Count 293 MPV 8.8 Immature Gran % (Auto) 0.2 Neut % (Auto) 69.3 Lymph % (Auto) 21.3 [place] % (Auto) 7.2 Eos % (Auto) 1.5 Baso % (Auto) 0.5 Immature Gran # (Auto) 0.02 Neut # (Auto) 6.59 H Lymph # (Auto) 2.03 [place] # (Auto) 0.68 H Eos # (Auto) 0.14 Baso # (Auto) 0.05 Absolute Nucleated RBC 0.03 H Nucleated RBC % (auto) 0.3 Sodium Potassium Chloride Carbon Dioxide Anion Gap BUN Creatinine Est Cr Clr Drug Dosing Est GFR ( Amer) Est GFR (Non-Af Amer) BUN/Creatinine Ratio Glucose POC Glucose 98 86 Calcium Magnesium TSH Free T4 03/12/19 03/13/19 03/13/19 20:40 05:48 05:48 WBC 8.69 RBC 2.84 L Hgb 9.2 L Hct 27.3 L MCV 96.1 MCH 32.4 MCHC 33.7 RDW Std Deviation 61.6 H RDW Coeff of Ch[place] 17.7 H Plt Count 314 MPV 8.5 Immature Gran % (Auto) 0.3 Neut % (Auto) 67.9 Lymph % (Auto) 20.4 [place] % (Auto) 8.4 Eos % (Auto) 2.2 Baso % (Auto) 0.8 Immature Gran # (Auto) 0.03 H Neut # (Auto) 5.90 Lymph # (Auto) 1.77 [place] # (Auto) 0.73 H Eos # (Auto) 0.19 Baso # (Auto) 0.07 Absolute Nucleated RBC Nucleated RBC % (auto) Sodium 141 Potassium 4.1 Chloride 111 H Carbon Dioxide 23 Anion Gap 7.0 BUN 19 H Creatinine 1.15 Est Cr Clr Drug Dosing 44.9 Est GFR ( Amer) 53.9 Est GFR (Non-Af Amer) 46.5 BUN/Creatinine Ratio 16.6 Glucose 136 H POC Glucose 116 H Calcium 8.9 Magnesium 1.9 TSH 16.800 H Free T4 0.80 03/13/19 07:38 WBC RBC Hgb Hct MCV MCH MCHC RDW Std Deviation RDW Coeff of [place] Plt Count MPV Immature Gran % (Auto) Neut % (Auto) Lymph % (Auto) [place] % (Auto) Eos % (Auto) Baso % (Auto) Immature Gran # (Auto) Neut # (Auto) Lymph # (Auto) [place] # (Auto) Eos # (Auto) Baso # (Auto) Absolute Nucleated RBC Nucleated RBC % (auto) Sodium Potassium Chloride Carbon Dioxide Anion Gap BUN Creatinine Est Cr Clr Drug Dosing Est GFR ( Amer) Est GFR (Non-Af Amer) BUN/Creatinine Ratio Glucose POC Glucose 130 H Calcium Magnesium TSH Free T4 Diagnostic Findings On the telemetry the patient remains in atrial fibrillation with high heart rates at times. Medications Administered Current Inpatient Medications Acetaminophen (Tylenol) 650 mg PO Q4H PRN PRN Reason: Moderate Pain Stop: 04/11/19 16:13 Last Admin: 03/12/19 16:29 Dose: 650 mg Documented by: Artificial Tears (Artificial Tears) 1 drops OP TID GABBY Stop: 04/10/19 13:59 Last Admin: 03/13/19 08:22 Dose: 1 drops Documented by: Aspirin (Ecotrin Ectab) 81 mg PO DAILY GABBY Stop: 04/11/19 08:59 Last Admin: 03/13/19 08:22 Dose: 81 mg Documented by: Dextrose (Dextrose 50%) 25 - 50 ml IV UD PRN; Protocol PRN Reason: Hypoglycemia Protocol Stop: 04/10/19 12:55 Glucagon (Glucagen) 1 mg SQ UD PRN; Protocol PRN Reason: Hypoglycemia Protocol Stop: 04/10/19 12:55 Glucose (Glucose 40%) 15 - 30 gm PO UD PRN; Protocol PRN Reason: Hypoglycemia Protocol Stop: 04/10/19 12:55 Glucose (Dex4 Glucose) 4 - 8 tabs PO UD PRN; Protocol PRN Reason: Hypoglycemia Protocol Stop: 04/10/19 12:55 Sodium Chloride (Nss) 250 mls @ 15 mls/hr IV .[id number] PRN PRN Reason: For Transfusion Stop: 04/10/19 10:27 Insulin Aspart (Novolog Flexpen) 0 units SC ACHS GABBY Stop: 04/10/19 16:29 Last Admin: 03/13/19 08:17 Dose: 2 units Documented by: Insulin Glargine (Lantus Solostar Pen) 0 units SC HS GABBY; Protocol Stop: 04/10/19 20:59 Last Admin: 03/12/19 20:48 Dose: 10 units Documented by: Metoprolol Tartrate (Lopressor) 12.5 mg PO BID [facility] Stop: 04/12/19 09:29 Miscellaneous (Carbohydrates For Hypoglycemia) 15 - 30 gm PO UD PRN PRN Reason: Hypoglycemia Treatment Stop: 04/10/19 12:55 Ondansetron HCl (Zofran) 4 mg IV Q6H PRN PRN Reason: Nausea Stop: 04/10/19 12:55 Oxycodone/Acetaminophen (Percocet 5mg/325mg) 1 tab PO Q4H PRN PRN Reason: pain Stop: 03/25/19 14:35 Pantoprazole Sodium (Protonix) 40 mg PO QA GABBY Stop: 04/12/19 08:59 Last Admin: 03/13/19 08:23 Dose: 40 mg Documented by: Rosuvastatin Calcium (Crestor) 40 mg PO HS [facility] Stop: 04/11/19 20:59 Last Admin: 03/12/19 20:47 Dose: 40 mg Documented by: Verapamil HCl (Calan Sr) 180 mg PO HS [facility] Stop: 04/12/19 20:59
[2019-03-13] MEDS ORDERED: FUROSEMIDE 20 MG in SYRINGE 0 ML IV ONE (10:00)
[2019-03-13] MEDS ORDERED: LEVOTHYROXINE SODIUM 125 MCG TABLET PO SCH (10:00)
[2019-03-13] MEDS: METOPROLOL TARTRATE 25 MG TAB PO SCH ×2 (10:47→20:23)
--- NOTE | 2019-03-13 13:35 | Orthopedic Progress Note ---
Date of Service March 13, 2019 Assessment & Plan (1) Status post total knee replacement, right: Patient was educated regarding today's findings. Wound was cleansed with rubbing alcohol. Sandy were removed. Benzoin and Steri-Strips were applied. These will fall off on their own in 5 to 7 days. She may get the wound wet in shower starting tomorrow. Avoid scrubbing. Continue with her DANIELLE hose for another 4 weeks. She already has an appointment for physical therapy next Sunday. Follow-up in the office in [address] An for reexamination and new films. Her appointment is April 30. Continue with PT while in the hospital. Continue with her compression stockings and SCDs. She states she is Raoul ordered SCDs at home and they are to be delivered tomorrow. We will continue to follow as a peripheral service. Subjective Patient is seen in her room today. Her significant other is at her side. She is now 15 days status post right total knee arthroplasty. She was to have an appointment in the office today for staple removal. Due to her hospitalization, her mariano will be removed here. She denies any issues with her knee. She did participate in physical therapy today. She is a bit disappointed that she will not be discharged home today. She had new onset of atrial fibrillation last evening and requires further work-up/monitoring. No other complaints at this time. She has had no further episodes of hematemesis or melena. Review of Systems Review of Systems: unchanged from admission Physical Exam Physical Exam: Right knee evaluation reveals a healing surgical incision. Expected postoperative edema. Minimal ecchymosis. No active drainage from the wound. Sandy are intact. Wound edges are well approximated. No erythema or warmth. She has nearly full extension. Flexion to greater than 70 degrees. Neurologic: Gross sensation is intact across the right leg by soft touch. Peripheral pulses are 2+. Results & Data Vital Signs (Past 12 Hours) Vital Signs Temp Pulse Resp BP BP Pulse Ox 03/13/19 11:14 36.8 C 92 H 18 125/73 98 03/13/19 10:48 68 115/65 03/13/19 08:37 37.1 C 85 12 108/66 97 03/13/19 04:22 37.1 C 55 L 19 107/64 97
[2019-03-13] MEDS: ACETAMINOPHEN 325 MG TAB PO PRN (14:17)
[2019-03-13] MEDS ORDERED: ACETAMINOPHEN 500 MG TAB PO PRN (15:38)
[2019-03-13] MEDS: PANTOprazole 40 MG TAB PO SCH (20:22)
[2019-03-13] MEDS: ROSUVASTATIN CALCIUM 20 MG TAB PO SCH (20:22)
[2019-03-13] MEDS: INSULIN GLARGINE SOLOSTAR 100 UNITS/ML 3 ML PEN SC SCH (20:47)
[2019-03-13] MEDS ORDERED: VERAPAMIL HCL 180 MG TABCR PO SCH (21:00)
[2019-03-14] MEDS ORDERED: LEVOTHYROXINE SODIUM 125 MCG TABLET PO SCH (06:30)
[2019-03-14] MEDS: INSULIN ASPART 100 UNITS/ML 3 ML PEN SC SCH ×2 (08:22→12:31)
[2019-03-14] MEDS: PANTOprazole 40 MG TAB PO SCH (08:23)
[2019-03-14] MEDS: METOPROLOL TARTRATE 25 MG TAB PO SCH (08:24)
[2019-03-14] MEDS: ARTIFICIAL TEARS OP SCH ×2 (08:25→13:20)
[2019-03-14] MEDS: ASPIRIN 81 MG ECTAB PO SCH (08:25)
--- NOTE | 2019-03-14 11:23 | Cardiology Progress Note ---
Date of Service March 14, 2019 Assessment & Plan (1) Acute blood loss anemia: (2) History of heart bypass surgery: (3) Sleep apnea: (4) Diastolic heart failure: (5) Atrial fibrillation with RVR: No additional GI bleeding. I would send this patient home on aspirin only and no anticoagulation. Her blood pressure is a little on the low side today and she had 2 episodes very brief Mobitz 2 last night while sleeping. I am going to decrease the dosage of verapamil to 120 mg daily. Continue the metoprolol at its present dosage. From our standpoint the patient can be discharged home with outpatient follow-up which I will arrange. Subjective The patient had an uneventful night. No more bloody stools. On the telemetry she is maintaining sinus rhythm. 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 These were asymptomatic. Otherwise her heart rates have been good. Review of Systems Review of Systems: All systems reviewed & are unremarkable except as noted in HPI & below Nothing additional to add Physical Exam Physical Exam: General: no acute distress and stated age Head: normocephalic, no masses, lesions, tenderness or abnormalities Eyes: conjunctiva are pink and non-injected, sclera clear Neck: supple, no adenopathy, no bruits, normal jugular venous pulse, no hepatojugular reflux Chest: normal shape and normal respiratory effort Lungs: clear to auscultation and percussion Cardiac Exam: - regular rate & rhythm, no murmurs gallops or rubs - normal S1, normal S2 Pulses: 2(+) throughout Abdomen: abdomen soft, non-tender, no abnormal masses and no hepatosplenomegaly Musculoskeletal: no gait disturbance, no joint inflammation, no deforming arthritis Extremities: no edema and no cyanosis Neuro: grossly normal exam Results & Data Vital Signs (Past 12 Hours) Vital Signs Temp Pulse Pulse Pulse Resp BP BP 03/14/19 07:35 60 03/14/19 07:23 36.9 C 59 L 19 107/62 03/14/19 05:58 56 L 03/14/19 04:10 51 L 03/14/19 03:39 36.7 C 55 L 19 107/61 03/14/19 01:41 57 L 03/14/19 01:40 72 03/13/19 23:22 37.1 C 69 20 109/63 Pulse Ox 03/14/19 07:35 03/14/19 07:23 95 03/14/19 05:58 03/14/19 04:10 03/14/19 03:39 99 03/14/19 01:41 03/14/19 01:40 03/13/19 23:22 96 Laboratory Results Laboratory Results - last 24 hr 03/13/19 03/13/19 03/13/19 11:11 16:23 20:39 POC Glucose 134 H 130 H 121 H 03/14/19 07:20 POC Glucose 103 H Medications Administered Current Inpatient Medications Acetaminophen (Tylenol) 500 mg PO Q4 PRN PRN Reason: Pain Stop: 04/12/19 15:37 Artificial Tears (Artificial Tears) 1 drops OP TID GABBY Stop: 04/10/19 13:59 Last Admin: 03/14/19 08:25 Dose: 1 drops Documented by: Aspirin (Ecotrin Ectab) 81 mg PO DAILY GABBY Stop: 04/11/19 08:59 Last Admin: 03/14/19 08:25 Dose: 81 mg Documented by: Dextrose (Dextrose 50%) 25 - 50 ml IV UD PRN; Protocol PRN Reason: Hypoglycemia Protocol Stop: 04/10/19 12:55 Glucagon (Glucagen) 1 mg SQ UD PRN; Protocol PRN Reason: Hypoglycemia Protocol Stop: 04/10/19 12:55 Glucose (Glucose 40%) 15 - 30 gm PO UD PRN; Protocol PRN Reason: Hypoglycemia Protocol Stop: 04/10/19 12:55 Glucose (Dex4 Glucose) 4 - 8 tabs PO UD PRN; Protocol PRN Reason: Hypoglycemia Protocol Stop: 04/10/19 12:55 Sodium Chloride (Nss) 250 mls @ 15 mls/hr IV .[id number] PRN PRN Reason: For Transfusion Stop: 04/10/19 10:27 Insulin Aspart (Novolog Flexpen) 0 units SC ACHS GABBY Stop: 04/10/19 16:29 Last Admin: 03/14/19 08:22 Dose: Not Given Documented by: Insulin Glargine (Lantus Solostar Pen) 0 units SC HS GABBY; Protocol Stop: 04/10/19 20:59 Last Admin: 03/13/19 20:47 Dose: 10 units Documented by: Levothyroxine Sodium (Synthroid) 125 mcg PO DAILYBB GABBY Stop: 04/13/19 06:29 Last Admin: 03/14/19 05:45 Dose: 125 mcg Documented by: Metoprolol Tartrate (Lopressor) 12.5 mg PO BID GABBY Stop: 04/12/19 09:29 Last Admin: 03/14/19 08:24 Dose: 12.5 mg Documented by: Miscellaneous (Carbohydrates For Hypoglycemia) 15 - 30 gm PO UD PRN PRN Reason: Hypoglycemia Treatment Stop: 04/10/19 12:55 Ondansetron HCl (Zofran) 4 mg IV Q6H PRN PRN Reason: Nausea Stop: 04/10/19 12:55 Oxycodone/Acetaminophen (Percocet 5mg/325mg) 1 tab PO Q4H PRN PRN Reason: pain Stop: 03/25/19 14:35 Pantoprazole Sodium (Protonix) 40 mg PO BID GABBY Stop: 04/12/19 20:59 Last Admin: 03/14/19 08:23 Dose: 40 mg Documented by: Rosuvastatin Calcium (Crestor) 40 mg PO HS GABBY Stop: 04/11/19 20:59 Last Admin: 03/13/19 20:22 Dose: 40 mg Documented by: Verapamil HCl (Calan Sr) 120 mg PO HS [facility] Stop: 04/13/19 20:59
--- NOTE | 2019-03-14 11:27 | Progress Note ---
DATE: 03/14/2019 At this point in time, her knee is looking clean and dry. Her mariano are removed. Steri-Strips were applied. CMS intact femoral sciatic nerve. She is walking well. She is starting to bend her knee better. No evidence of DVT on clinical exam. Continue with medical pumps SCDs are medically necessary. Deep venous thrombosis prophylaxis per medicine based on atrial fibrillation conversion and GI bleed. At this point, will follow up with us as previously arranged.
--- NOTE | 2019-03-14 15:41 | Hospitalist Progress Note ---
Date of Service March 14, 2019 Assessment & Plan (1) GI (gastrointestinal bleed): GI bleed due to anticoagulant therapy Patient had multiple episodes of loose stools with ady blood, orthostatic lightheadedness and 2 syncopal episodes Likely lower GI bleed, such as diverticular On warfarin after right TKA performed on February 26, 2019 Warfarin held, discussed with the patient that she will need SCDs as DVT prophylaxis, patient plans to purchase her own SCDs Patient also takes aspirin for CAD GI was consulted, no plan for scope at this time, will follow-up as outpatient Patient was started on IV PPI, now switched to p.o. PPI BID, received vitamin K to reverse warfarin GI bleed seemed to be resolved, patient had several BMs while inpt which were nonbloody (2) Acute blood loss anemia: Secondary to GI bleed and warfarin use, as above Afib -new onset, now converted back to NSR -can not anticoagulated at his time d/t GI bleed -rate controlled w/ verapamil (half home dose to help w/ BP), metoprolol started Cardiology was consulted, heaven. input (3) CAD (coronary artery disease): Status post CABG about 5 years ago Currently no anginal symptoms, on aspirin At home also takes verapamil which was held on admission due to hypotension, resumed last night, but d/t hypotension dose decreased to half and pt was started on metoprolol as well Statin held on admission, will resume (4) Diastolic heart failure: At this time we well compensated Need to monitor fluid and cardiopulmonary status closely (5) HTN (hypertension): At home takes verapamil and lisinopril, held due to GI bleed verapamil resumed (half dose as mentioned above) Lisinopril,plan to resume prior to discharge (6) Anticoagulated: Patient on warfarin due to recent TKA, performed on February 26 We will need to hold warfarin for now, and she will be using SCDs for DVT pr ophylaxis [place] now removed by Orthoped. service, orthopedics following (7) Sleep apnea: On CPAP with 1 L oxygen at bedtime, will continue (8) Diabetes mellitus, type II: Hemoglobin A1c 6.5, in January 2019 At home on Prandin and Trulicity, which were held on admission Lantus, NovoLog SSI We will continue to monitor and adjust medications as necessary (9) Hypothyroidism: Continue home levothyroxine (10) Stage III chronic kidney disease: Current creatinine 1.15 No current issues We will continue to monitor renal function closely We will try to avoid nephrotoxic agents such as contrast and NSAIDs Subjective No acute events overnight. Patient is laying in bed, comfortable, boyfriend at the bedside. Denies any fevers, chills, nausea, vomiting, chest pain, shortness of breath, abdominal pain. She had several bowel movements while in the hospital, nonbloody. Review of Systems Constitutional: + fatigue and + malaise; no fever and no chills Respiratory: no cough and no dyspnea Cardiovascular: no chest pain, no dyspnea on exertion, no palpitations and no edema Gastrointestinal: no abdominal pain, no nausea and no vomiting Physical Exam Constitutional: well developed and well nourished; no acute distress Eyes: PERRL, conjunctivae normal, anicteric sclerae ENMT: external ear and nose normal, oropharynx normal Neck: trachea midline, no thyromegaly Respiratory: normal respiratory effort, lungs clear to auscultation no labored breathing Auscultation: no wheezes Cardiovascular: RRR, no murmur, no edema Chest (Breasts): Chest: normal inspection of chest Gastrointestinal (Abdomen): Inspection/Auscultation: abdomen normal to inspection and normal bowel sounds; abdomen not distended Percussion/Palpation: abdomen soft; abdomen nontender Musculoskeletal: Head/Neck/Chest: normocephalic, head atraumatic and neck supple Extremities: extremities normal to inspection and strength 5/5 throughout Knee: + knee abnormal to inspection (s/p right TKA, mariano ori luisito, clean dressings applied over incision) Skin: no rashes, warm and dry Neurologic: PERRL, EOMI, accommodation nl, no face palsy, no dysarthria Psychiatric: A+Ox3, euthymic affect Speech: normal rate/rhythm/volume of speech Genitourinary: no CVA tenderness Lymphatic: no lymphedema and no cervical lymphadenopathy Results & Data Vital Signs (Past 12 Hours) Vital Signs Temp Pulse Pulse Pulse Resp BP BP 03/14/19 15:20 36.8 C 59 L 20 113/61 03/14/19 11:20 36.8 C 58 L 19 99/63 L 03/14/19 07:35 60 03/14/19 07:23 36.9 C 59 L 19 107/62 03/14/19 05:58 56 L 03/14/19 04:10 51 L Pulse Ox 03/14/19 15:20 95 03/14/19 11:20 97 03/14/19 07:35 03/14/19 07:23 95 03/14/19 05:58 03/14/19 04:10 Laboratory Results 03/14/19 03/14/19 03/13/19 Range/Units 11:20 07:20 20:39 POC Glucose 92 103 H 121 H (70-99) 03/13/19 Range/Units 16:23 POC Glucose 130 H (70-99) 03/14/19 03/14/19 03/14/19 Range/Units 16:15 11:20 07:20 POC Glucose 95 92 103 H (70-99) Medications Administered Current Inpatient Medications Acetaminophen (Tylenol) 500 mg PO Q4 PRN PRN Reason: Pain Stop: 04/12/19 15:37 Artificial Tears (Artificial Tears) 1 drops OP TID GABBY Stop: 04/10/19 13:59 Last Admin: 03/14/19 13:20 Dose: 1 drops Documented by: Aspirin (Ecotrin Ectab) 81 mg PO DAILY GABBY Stop: 04/11/19 08:59 Last Admin: 03/14/19 08:25 Dose: 81 mg Documented by: Dextrose (Dextrose 50%) 25 - 50 ml IV UD PRN; Protocol PRN Reason: Hypoglycemia Protocol Stop: 04/10/19 12:55 Glucagon (Glucagen) 1 mg SQ UD PRN; Protocol PRN Reason: Hypoglycemia Protocol Stop: 04/10/19 12:55 Glucose (Glucose 40%) 15 - 30 gm PO UD PRN; Protocol PRN Reason: Hypoglycemia Protocol Stop: 04/10/19 12:55 Glucose (Dex4 Glucose) 4 - 8 tabs PO UD PRN; Protocol PRN Reason: Hypoglycemia Protocol Stop: 04/10/19 12:55 Sodium Chloride (Nss) 250 mls @ 15 mls/hr IV .[id number] PRN PRN Reason: For Transfusion Stop: 04/10/19 10:27 Insulin Aspart (Novolog Flexpen) 0 units SC ACHS GABBY Stop: 04/10/19 16:29 Last Admin: 03/14/19 12:31 Dose: 1 units Documented by: Insulin Glargine (Lantus Solostar Pen) 0 units SC [facility]; Protocol Stop: 04/10/19 20:59 Last Admin: 03/13/19 20:47 Dose: 10 units Documented by: Levothyroxine Sodium (Synthroid) 125 mcg PO DAILYBB [facility] Stop: 04/13/19 06:29 Last Admin: 03/14/19 05:45 Dose: 125 mcg Documented by: Metoprolol Tartrate (Lopressor) 12.5 mg PO BID [facility] Stop: 04/12/19 09:29 Last Admin: 03/14/19 08:24 Dose: 12.5 mg Documented by: Miscellaneous (Carbohydrates For Hypoglycemia) 15 - 30 gm PO UD PRN PRN Reason: Hypoglycemia Treatment Stop: 04/10/19 12:55 Ondansetron HCl (Zofran) 4 mg IV Q6H PRN PRN Reason: Nausea Stop: 04/10/19 12:55 Oxycodone/Acetaminophen (Percocet 5mg/325mg) 1 tab PO Q4H PRN PRN Reason: pain Stop: 03/25/19 14:35 Pantoprazole Sodium (Protonix) 40 mg PO BID [facility] Stop: 04/12/19 20:59 Last Admin: 03/14/19 08:23 Dose: 40 mg Documented by: Rosuvastatin Calcium (Crestor) 40 mg PO [facility] Stop: 04/11/19 20:59 Last Admin: 03/13/19 20:22 Dose: 40 mg Documented by: Verapamil HCl (Calan Sr) 120 mg PO [facility] Stop: 04/13/19 20:59 (1) GI (gastrointestinal bleed) GI bleed type/associated pathology: unspecified gastrointestinal hemorrhage type Qualified Code(s): K92.2 - Gastrointestinal hemorrhage, unspecified
[2019-03-14] MEDS ORDERED: VERAPAMIL HCL 120 MG TABCR PO SCH (21:00)
--- NOTE | 2019-03-14 23:03 | Discharge Summary ---
Date of Service March 14, 2019 Admission HPI Per Admitting Provider Pt is 73 y/o F with PMH CAD s/p CABG x 1 in 2013, HTN, dyslipidemia, h/o diastolic dysfunction, insulin dependent DM II, thoracic aortic aneurysm, CKD III, hypothyroidism, TAE, recurrent UTI presented to ER with c/o bloody diarrhea and syncope. Pt with hx R TKA on 02/26/19 and was started on Coumadin for VTE prophylaxis. Last INR: 2.8 on 03/07/19. Pt states yesterday with bleeding gums and had epistaxis so did not take her evening dose of Coumadin. Pt also on aspirin 81 mg daily. Last night started with lower abdominal cramping and episode of bright red bloody diarrhea. Had 3 additional episodes of red bloody d iarrhea this morning. Reports abdominal cramping resolves after having BM. Pt states this morning was standing to go to bathroom when had syncopal episode lasting several seconds. Family member was able to gently lower pt to floor at that time. Denies hitting head. Had another episode of lightheadedness and diaphoresis followed by syncope after getting off toilet this morning. Again family was there to safely lower pt to ground. Tried to measure BP however automatic cuff would not read. Did not check BSG but ate a mint in case she was hypoglycemic. EMS was summoned. Pt reports was told BSG was 198 by EMS. Denies ETOH use. Prior to surgery was on NSAIDs however denies use since surgery. Pt reports constipation after surgery and was using Miralax for several days, hasn't used since last week. Reports frontal LATIF yesterday and today, however feels like has less LATIF today. Pt reports still with post op knee pain but denies any worsening pain. Denies fever/chills or noted wound discharge. Denies vision changes, neck pain, CP, SOB, orthopnea, palpitations, cough, sore throat, choking, otalgia, rhinorrhea, paresthesias, weakness, extremity weakness, increased extremity edema, rashes, urinary symptoms. In ER pt given 500ml NSS, Protonix drip started. Admission Exam Per Admitting Provider General: no acute distress, obese Head: normocephalic, atraumatic Eyes: PERRL, EOM's intact, conjunctiva non-injected, anicteric ENT: normal inspection external ears, nose, mucous membranes dry Neck: supple, trachea midline Lungs: clear, no respiratory distress, no wheezing/rhonchi/rales CV: RRR, no murmur, no pretibial edema Abd: normal BS, soft, non-tender Ext: no calf tenderness; R knee with mariano in place without any erythema or edema, no discharge, mild tenderness to palpation anterior knee Neuro: A&O x 3, no focal deficits noted, normal affect Skin: warm, dry Principal Diagnosis GI bleed d/t anticoagulation therapy, Acute blood loss anemia, Atrial fibrillation (new onset, converted to NSR), CAD s/p CABG Discharge Exam Constitutional well developed and well nourished; no acute distress Eyes PERRL, conjunctivae normal, anicteric sclerae ENMT external ear and nose normal, oropharynx normal Neck trachea midline, no thyromegaly Respiratory normal respiratory effort, lungs clear to auscultation no labored breathing Auscultation: no wheezes Cardiovascular RRR, no murmur, no edema Chest (Breasts) Chest: normal inspection of chest Gastrointestinal (Abdomen) Inspection/Auscultation: abdomen normal to inspection and normal bowel sounds; abdomen not distended Percussion/Palpation: abdomen soft; abdomen nontender Musculoskeletal Head/Neck/Chest: normocephalic, head atraumatic and neck supple Extremities: extremities normal to inspection and strength 5/5 throughout Knee: + knee abnormal to inspection (s/p right TKA, mariano removed, clean dressings applied over incision) Skin no rashes, warm and dry Neurologic PERRL, EOMI, accommodation nl, no face palsy, no dysarthria Psychiatric A+Ox3, euthymic affect Speech: normal rate/rhythm/volume of speech Genitourinary no CVA tenderness Lymphatic no lymphedema and no cervical lymphadenopathy Discharge Data Allergies Allergy/AdvReac Type Severity Reaction Status Date / Time Bactrim Allergy Severe HIVES, Verified 09/27/17 10:27 ITCHING, ANAPHYLAXIS Sulfa (Sulfonamide Allergy Severe "BACTRIM" Verified 03/11/19 10:38 Antibiotics) HIVES, ITCHING AND ANAPHYLAXIS sulfamethoxazole Allergy Severe HIVES, Verified 03/11/19 10:38 ITCHING, ANAPHYLAXIS trimethoprim Allergy Severe HIVES, Verified 03/11/19 10:38 ITCHING, ANAPHYLAXIS cat dander Allergy Intermediate AND DOGS - Verified 03/11/19 10:38 SNEEZING cortisone Allergy Intermediate HIVES Verified 03/11/19 10:38 Penicillins Allergy Intermediate HIVES Verified 03/11/19 10:38 Chlorine Allergy Intermediate ECZEMA Uncoded 03/11/19 10:38 Consultations 03/11/19 10:34 ED Decision to Admit Stat 03/11/19 12:56 Consult Case Management - Discharge Planning Routine Consult Gastroenterology Routine 03/11/19 14:59 Consult Case Management - Discharge Planning Routine 03/12/19 20:33 Consult Cardiology Routine Ordered Studies 03/11/19 11:24 CT head/brain wo con Stat Hospital Course (1) GI (gastrointestinal bleed): GI bleed due to anticoagulant therapy Patient had multiple episodes of loose stools with ady blood, orthostatic lightheadedness and 2 syncopal episodes Likely lower GI bleed, such as diverticular On warfarin after right TKA performed on February 26, 2019 Warfarin held, discussed with the patient that she will need SCDs as DVT prophylaxis, patient plans to purchase her own SCDs Patient also takes aspirin for CAD GI was consulted, no plan for scope at this time, will follow-up as outpatient Patient was started on IV PPI, now switched to p.o. PPI BID, received vitamin K to reverse warfarin GI bleed seemed to be resolved, patient had several BMs while inpt which were nonbloody (2) Acute blood loss anemia: Secondary to GI bleed and warfarin use, as above Afib -new onset, now converted back to NSR -can not anticoagulated at his time d/t GI bleed -rate controlled w/ verapamil (half home dose to help w/ BP), metoprolol 12.5mg bid started Cardiology was consulted, heaven. input (3) CAD (coronary artery disease): Status post CABG about 5 years ago Currently no anginal symptoms, on aspirin At home also takes verapamil which was held on admission due to hypotension, resumed but d/t hypotension dose decreased to half and pt was started on metoprolol as well Statin held on admission, will resume (4) Diastolic heart failure: At this time we well compensated Need to monitor fluid and cardiopulmonary status closely (5) HTN (hypertension): At home takes verapamil and lisinopril, held due to GI bleed verapamil resumed (half dose as mentioned above) Lisinopril,plan to resume prior to discharge (6) Anticoagulated: Patient on warfarin due to recent TKA, performed on February 26 We will need to hold warfarin for now, and she will be using SCDs for DVT prophylaxis [place] now removed by Orthoped. service, orthopedics following (7) Sleep apnea: On CPAP with 1 L oxygen at bedtime, will continue (8) Diabetes mellitus, type II: Hemoglobin A1c 6.5, in January 2019 At home on Prandin and Trulicity, which were held on admission, will resume on discharge Lantus, NovoLog SSI while inpt (9) Hypothyroidism: Continue home levothyroxine (10) Stage III chronic kidney disease: Current creatinine 1.15 No current issues We will continue to monitor renal function closely We will try to avoid nephrotoxic agents such as contrast and NSAIDs Total Time Total Time Spent Total Time Spent (In Minutes): 35 min Total Time Includes: Examination of the Patient, Discharge Planning, Medication Reconciliation and Communication With Other Providers Discharge Plan Discharge Items Patient Disposition: Home - Self-Care Reason For Visit: GI BLEED Discharge Diagnosis: GI bleed d/t anticoagulation therapy, Acute blood loss anemia, Atrial fibrillation (new onset, converted to NSR) Condition on Discharge: Good Activity: Resume your previous activity Activity Comment: as tolerated Non-emergency contact: Primary Care Provider, Surgeon and Instructor Dancing Call non-emergency contact if: you have any medication questions and your symptoms worsen Follow-up/Referrals: Toan Bravo, [Primary Care Provider] - Diet: Carb Consistent or DM2 Addtl Attending Provider Instructions: You have an appointment in the orthopedic office on Apr 30 at 10:15am with Dr. An Please follow up with your PCP within 1 week and with your road roller operator after hospital discharge. Medications changes Verapamil - decreased dose to 120mg a day Aspirin- take 1 tablet (81mg) a day Stop warfarin (coumadin) Stop lansoprazole (you will take similar medication, pantoprazole, twice a day) NEW medication - metoprolol, take 12.5 mg twice a day Pending Studies at Discharge: No Stand-Alone Forms: My [employer], Smoking Cessation Medications and DC Order Prescriptions: New pantoprazole 40 mg Tablet,Delayed Release (Dr/Ec) 40 mg PO BID Qty: 60 RF: 0 metoprolol tartrate 25 mg Tablet 12.5 mg PO BID Qty: 60 RF: 0 verapamil 120 mg Tablet Extended Release 120 mg PO HS Qty: 30 RF: 0 Continued magnesium oxide 400 mg magnesium capsule 400 mg PO QDL RF: 0 biotin 2,500 mcg capsule 5,000 mcg PO QAM RF: 0 repaglinide [Prandin] 1 mg tablet 1 mg PO TID PRN (Reason: BLOOD SUGAR LEVELS) RF: 0 lisinopril 10 mg tablet 10 mg PO HS RF: 0 levothyroxine 125 mcg tablet 125 mcg PO QAM RF: 0 nitrofurantoin monohyd/m-cryst 100 mg capsule 100 mg PO HS Qty: 30 RF: 0 Lantus U-100 Insulin 100 unit/mL Solution 22 unit SUBCUT HS RF: 0 Refresh Optive Mateusz-3 (PF) 0.5-1-0.5 % Dropperette 1 drp OPHTHALMIC (EYE) TID RF: 0 valacyclovir 500 mg Tablet 500 mg PO QAM RF: 0 cholecalciferol (vitamin D3) [Vitamin D3] 400 unit Capsule 400 unit PO QAM RF: 0 rosuvastatin [Crestor] 40 mg Tablet 40 mg PO HS RF: 0 aspirin [Aspir-81] 81 mg Tablet,Delayed Release (Dr/Ec) 81 mg PO DAILY RF: 0 multivitamin Tablet 1 tab PO QAM RF: 0 acetaminophen [Tylenol Extra Strength] 500 mg Tablet 500 mg PO Q4 PRN (Reason: Pain) RF: 0 Probiotic 3 billion cell Capsule 3,000 mmu cells PO QDL RF: 0 Trulicity 1.5 mg/0.5 mL Pen Injector 1.5 mg SUBCUT WK RF: 0 oxycodone-acetaminophen [Percocet] 5-325 mg tablet 1 - 2 tab PO Q4H PRN (Reason: pain) RF: 0 Discontinued lansoprazole 30 mg capsule,delayed release(DR/EC) 30 mg PO QAM RF: 0 verapamil [Calan SR] 240 mg tablet extended release 240 mg PO HS RF: 0 furosemide 20 mg Tablet 20 mg PO QAM RF: 0 warfarin 2 mg tablet 4 mg PO HS RF: 0 Discharge Orders: Discharge Order (Routine); Ordered 03/14/19 Ordered By: Doyle Talavera Admission Data Admit Date/Time: 03/11/19 11:44 Attending Provider: Doyle Talaverait Provider: Marcel Hernandez Primary Care Provider: Toan Bravo Other Providers: Marcel Hernandez ; Dax Hicks ; Timothy Arthur Other Interventions: Discharge Summary Assessment (RN) Last Done: 03/14/19 16:23 DC Date/Time DO NOT enter until pt leaves facility: 03/14/19 17:40
== END 2019-03-14 17:40 | disposition home or self-care (01) | DRG 813 ==
LOC: ED 09:25 → 2S 11:44 → SUATTDRO 11:44 → 2S 12:30